=== PATIENT | female | born 1955 | race Caucasian/White ===

== ENCOUNTER → 2022-02-25 10:24 | Outpatient (RCR) | payer MEDICARE, BC, SELFPAY | LOC: PHYS 10:24 | PROVIDERS: Family Provider Pediatrics; PCP Pediatrics; Referring Provider Pediatrics; Visit Provider Pediatrics ==

== ENCOUNTER → 2022-02-25 11:28 | Outpatient (CLI) | payer MEDICARE, BC, SELFPAY | PROVIDERS: Family Provider Pediatrics; PCP Pediatrics; Referring Provider Pediatrics; Visit Provider Pediatrics ==

== ENCOUNTER → 2022-02-25 11:42 | Outpatient (CLI) | payer MEDICARE, BC, SELFPAY | PROVIDERS: Family Provider Pediatrics; PCP Pediatrics; Referring Provider Pediatrics; Visit Provider Pediatrics ==

== ENCOUNTER → 2022-07-14 09:34 | Outpatient (CLI) | payer MEDICARE, BC, SELFPAY ==
[2022-07-14 11:13] LABS: Alanine Aminotransferase 28 IU/L (<35); Albumin Globulin Ratio 1.3 (1.0-2.8); Alkaline Phosphatase 51 U/L (38-126); Aspartate Aminotransferase 35 IU/L (14-36); BUN Creatinine Ratio 22.2 (6-22); Bilirubin Total 0.6 mg/dL (0.2-1.3); Blood Urea Nitrogen 12 mg/dL (7-17); Calcium 8.8 mg/dL (8.4-10.2); Carbon Dioxide 27 mmol/L (22-32); Chloride 108 mmol/L (98-107); Estimated Glomerular Filt Rate > 60 mL/min (>60); Globulin 3.2 g/dL (1.7-4.1); Glucose 95 mg/dL (80-110); HEMOLYSIS < 15 (0-50); Potassium 4.2 mmol/L (3.4-5.1); Sodium 140 mmol/L (137-145); Total Protein 7.2 g/dL (6.3-8.2)
[2022-07-14 11:26] LABS: Free T3, Triiodothyronine Free 3.13 pg/mL (2.77-5.27); Free T4, Direct Thyroxine 1.03 ng/dL (0.78-2.19)
[2022-07-14 11:39] LABS: Thyroid Stimulating Hormone 3.86 uIU/mL (0.47-4.68)
[2022-07-15 07:37] LABS: Fecal Immunochemical Test Negative (Negative)
[2022-07-16 08:22] LABS: Parathyroid Hormone Int 78 pg/mL (15-65)
== END ==
PROVIDERS: Family Provider Pediatrics; PCP Family Medicine; Referring Provider Family Medicine; Visit Provider Family Medicine
DX: Z12.11 Encounter for screening for malignant neoplasm of colon (principal); Z12.31 Encounter for screening mammogram for malignant neoplasm of breast; E03.9 Hypothyroidism, unspecified; E04.1 Nontoxic single thyroid nodule
CPT/HCPCS: 36415; 80053; 82274; 83970; 84439; 84443; 84481

== ENCOUNTER → 2022-08-13 08:14 | Outpatient (CLI) | payer MEDICARE, BC, SELFPAY ==
--- NOTE | 2022-08-13 | PATH_ITS ---
Note [facility] Accession Number: [id number] TESTS RESULT FLAG UNITS REF RANGE LAB Clinician Provided Cytology Information No. of containers..01 Other (Miscellaneous) No. of containers..08 Previously Prepared Cytology Slide Source: LEFT INFERIOR THYROID NODULE DIAGNOSIS: LEFT INFERIOR THYROID NODULE INCONCLUSIVE. BETHESDA CATEGORY III. ATYPIA OF UNDETERMINED SIGNIFICANCE. MOLECULAR STUDIES PENDING; RESULTS WILL BE REPORTED SEPARATELY. Pathologist ICD10: R89.6 Signed out by: Shelia Xiao MD, Pathologist NPI- [id number] Performed by: Kanchan Freeman, Senior Materials Planner ([facility]) Gross description: 30 CC, RED, CLOUDY RECEIVED IN CYTOLYT WHITE CAP CONTAINER RECEIVED 9 ALCOHOL FIXED SLIDES IN 3 GREEN CAP COFFINS RECEIVED 9 FIXED SLIDES IN 3 SLIDE HOLDERS RECIEVED 1 RNA VIAL /RZA 08/14/[address] [place] [address] FLAG LEGEND: L-Low Normal,H-High Normal,LL-Alert Low,HH-Alert High <-Panic Low,>-Panic High,A-Abnormal,AA-Critical Abnormal Performed at: 01 =Z [facility] [address], [place] [address] Brendon Shelby MD, Performed at: 01 [facility] [address], [place], [place] [id number] MD Brendon Shelby MD Phone: [phone]
--- NOTE | 2022-08-13 08:15 | DI.US.S_ITS ---
PROCEDURE: US FINE NEEDLE ASPIRATION INDICATIONS: LEFT INFERIOR THYROID NODULE TECHNIQUE: The indications, alternatives, benefits, risks, and complications of the procedure were explained to the patient. Written informed consent was obtained and placed in the chart. The area of interest was examined sonographically and a site was chosen for ultrasound guided percutaneous sampling. The skin was prepared and draped in the usual fashion, and anesthetized with 1% lidocaine infiltrated from the skin down to the lesion. Multiple passes were then performed, with contents emptied into an appropriate pathology specimen container. A bandage was applied to the area of access at completion of the study. COMPARISON: Ultrasound 10/01/2021. FINDINGS: Location(s) of lesion(s) sampled: Left inferior thyroid nodule [place]: 25 gauge hypodermic needles. Number of passes: 9 Medications: 1% lidocaine for local anaesthesia. Complications: None. IMPRESSION: Successful ultrasound-guided left thyroid nodule fine needle aspiration, with cytology results pending. Dictated by: Ross Teague M.D. on 08/13/2022 at 11:38 Approved by: Ross Teague M.D. on 08/13/2022 at 11:39
== END ==
PROVIDERS: Family Provider Pediatrics; PCP Family Medicine; Referring Provider Family Medicine; Visit Provider Family Medicine
DX: E04.1 Nontoxic single thyroid nodule (principal); E21.5 Disorder of parathyroid gland, unspecified; E03.9 Hypothyroidism, unspecified
CPT/HCPCS: 10005

== ENCOUNTER 2022-10-03 09:45 | Outpatient (RCR) | payer MEDICARE, BC, SELFPAY ==
--- NOTE | 2022-03-18 19:56 | PT.OIE ---
Current Diagnoses Hyperlipidemia, unspecified (03/18/22) Essential (primary) hypertension (03/18/22) Muscle weakness (generalized) (03/18/22) Other specified disorders of muscle (03/18/22) Unsteadiness on feet (03/18/22) Other abnormalities of gait and mobility (03/18/22) Past Medical History (Last Updated 01/13/22 @ 09:33 by Jose Mcginnis MD) Cerebrovascular accident (CVA) with right hemiparesis HTN (hypertension) Increased serum lipids Muscle hypertonicity Visit Care Team Role Provider Type Jose Mcginnis MD Attending Provider Physician Family Provider Primary Care Provider Referring Provider Specialty: Internal Medicine Pediatrics Address: [address] [place] [address], [id number] Phone: Fax: Email: [email or web address] Physical Therapy Initial Evaluation PT-OP-A Visit Information Start: 03/18/22 12:11 Freq: Status: Active Protocol: Document 03/18/22 13:51 LRN (Rec: 03/18/22 14:42 LRN [id number]) Out-Patient Physical Therapy Visit Information Visit Information Visit Type Initial Evaluation Visit Note 07/10 Visit Start Time 13:51 Visit Stop Time 14:40 Total Visit Minutes 49 Visit Number 1 Evaluation Information Evaluation Date 03/18/22 Precautions Precautions Osteoporosis, history of falls , HBP controlled by meds. PT-OP-B Current Condition Start: 03/18/22 12:11 Freq: Status: Active Protocol: Document 03/18/22 13:51 LRN (Rec: 03/18/22 14:42 LRN [id number]) Current Condition History of Current Condition Onset Date A few weeks ago referred for stroke rehab at pt request. L CVA 07/22/18 Current Complaints Hasn't had therapy in a yr. 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 States since stroke she has had therapy for a few months each year. Referred by Dr Jose Mcginnis at [facility], who will no longer be following her because he was a fill in physician. Has follow up visit with a physician in June 2022, who will be her primary care physician. Pt reports her walking is still unsteady and her R hand is useless. Pt will be receiving PT & OT. States hamstrings are begining to improve, feeling in her feet is improving, and the inner R ankle ms are getting stronger, so she is not rolling her R ankle any more. Pt complains she doesn't have big toes to help her balance because they curl in. If she steps on something unevenly then it causes her to loose her balance. When walking she looks down at the ground, and if she hears someone behind her, it causes her to tense up and decreases her balance ability because it is very distracting to her. Her balance when statioinary is good, but dynamically is not good. Prior Treatments and Tests See development section below. Developmental History Developmental History She continues to make progress and feels therapy seems to help. Marina in 07/22/2018 in [place]. Was in intensive care a few days, hospital a week and rehab inpt for 1 month. Home health the following month and outpatient OT/PT from September-Feb 2019. Started therapy again 06/2019 to 10/2019. Fall 08/03/19 with concusion. In 2020 had outpt PT 07/12 to 11/09. Treatment Goals Patient/Caregiver Goals Pt goals: Able to walk up/down hill. Currently she needs to hand onto someone if she is on a incline. Wants to walk on [place] without help. Wants to walk on different surfaces safely (grass, soft sand or gravel, cobblestones). Improve gait stability and speed. Able to step over 4 doorframe or other objects. Prior Functional Status Baseline Function- ADL's Independent Baseline Function- Mobility Independent Baseline Function- Work/School Homemaker. Current Functional Impairments (Reported) Functional Limitations- ADL's Past 2 months walks 1.25 miles 6 days/week. Other exercise is housework. Before walking on trails was doing modified yoga and Pilates exercise daily. Functional Limitations- Mobility/Gait Ambs with SPC, 1.25 miles with cane with spouse assist with inclines and declines. Personal Factors Other Personal Factors That May Effect Pt lives with spouse and son Therapy/Recovery who is a high functioning adult with autism, osteoporosis, intracranial meningioma. PT-OP-C Subjective Start: 03/18/22 12:11 Freq: Status: Active Protocol: Document 03/18/22 13:51 LRN (Rec: 03/18/22 14:42 LRN [id number]) Patient Questionnaires ABC- Activity Specific Balance Confidence Scale ABC Score Uncompleted, pt to bring in next visit. PT-OP-E Functional Tests Start: 03/18/22 12:11 Freq: Status: Active Protocol: Document 03/18/22 13:51 LRN (Rec: 03/18/22 14:42 LRN [id number]) Functional Tests Five Times Sit to Stand Test Score 19 secs Comments Without use of hands Timed Up and Go (TUG) Score 27 TUG Impairment Rating 100% Impaired (Score 20) PT-OP-G Mobility & Gait Start: 03/18/22 12:11 Freq: Status: Active Protocol: Document 03/18/22 13:51 LRN (Rec: 03/18/22 14:42 LRN [id number]) OP Mobility Evaluation Transfers Sit to Stand Stand to sit sometime uncontrolled. Stands greater on LLE. OP Gait Assessment Gait Gait Assistance Required: Standby Assistance Able to Maintain Weight Bearing Status Yes During Gait Assistive Devices Assistive Device Gait Belt,Straight Cane Orthotic/Prosthetic Devices or Brace: No Gait Deviations General Gait Pattern Decreased Stride Length,Flexed Trunk,Lateral Trunk Lean,Wide Based Gait Factors Limiting Gait Function Factors Limiting Gait Function Abnormal Tonal Influences, Decreased Strength,Limited Range of Motion,Poor Balance Comments Gait Comments Circumducts R LE, R drop foot, holds trunk in R rot, R arm held in flexion contracture. PT-OP-H Neuro Start: 03/18/22 12:11 Freq: Status: Active Protocol: Document 03/18/22 13:51 LRN (Rec: 03/18/22 14:42 LRN [id number]) Sensation Evaluation Gross Sensation Gross Sensation WNL PT-OP-J Posture/Palpation/Skin Start: 03/18/22 12:11 Freq: Status: Active Protocol: Document 03/18/22 13:51 LRN (Rec: 03/18/22 14:42 LRN [id number]) Posture Evaluation Position Standing Head/C-Spine Posture Forward Head T-Spine Posture Rotation Right Shoulder Posture (L) Elevated Knee Posture (R) Genu Recurvatum Comments Posture Comments R handed. PT-OP-M Strength Start: 03/18/22 12:11 Freq: Status: Active Protocol: Document 03/18/22 13:51 LRN (Rec: 03/18/22 14:42 LRN [id number]) Knee Strength Knee Manual Muscle Testing Right Flexion (S2) 2 Poor Extension (L3) 4 Good Left Comments Generally 5/5 Ankle/Foot Strength Ankle and Foot Manual Muscle Testing Right Dorsiflexion (L4) 0 Zero Comments Generally 1/5 except as indicated above. Left Comments Generally 5/5 PT-OP-Q Treatments Start: 03/18/22 12:11 Freq: Status: Active Protocol: Document 03/18/22 13:51 LRN (Rec: 03/18/22 14:42 LRN [id number]) Self-Care/Home Management Treatment Education Other Education Discussed results of evaluation, goals, and plan of care (POC). Pt agreeable to goals and POC. PT-OP-T Assessment and Plan Start: 03/18/22 12:11 Freq: Status: Active Protocol: Document 03/18/22 13:51 LRN (Rec: 03/18/22 14:42 LRN [id number]) Physical Therapy Assessment Rehab Potential Rehabilitation Potential Good Evaluation Complexity Number of Personal Factors/Comorbidities 3 or More Number of Body Systems Impaired 4 or More Clinical Presentation at Evaluation Evolving Impairments Impairments Activity Tolerance,Balance, Gait,Posture,ROM,Sensation, Strength,Tone,Transfers Goals Four Impairment Decreased standing dynamic balance. Impairment Pt requires railing UE support to step over objects. Short Term Goal (STG) Pt will be able to walk on different surfaces safely ( grass, soft sand or gravel to mimic cobblestones) with CGA> SBA. STG Duration 04/29/22 Longterm Goal (LTG) Pt will be able to step over 4 doorframe or other objects with use of SPC. LTG Duration 06/10/22 Three Impairment Decreased ability to walk up/ down inclines Impairment Requires arm hold assist when walking on an incline for safety. Short Term Goal (STG) Able to walk up/down a hill with CGA>SBA for safety. STG Duration 04/29/22 Rodeo Performer Goal (LTG) Pt will be able to walk on [place] with SBA and an adaptive device for the RLE ( AFO) as needed. LTG Duration 06/10/22 Two Impairment Decreased R LE strength Impairment Hyperextension of R knee with gait. R knee strength: Flex is 2/5, Ext is 4/5 and lacking ECC control with end-range extension. R ankle strength: Generally 1 /5 except ankle DF is 0/5. Short Term Goal (STG) Improve R knee and ankle strength 1/2 grade STG Duration 04/29/22 Rodeo Performer Goal (LTG) Pt will demonstrate improved stability with gait with ability to limit R knee hyperextension during gait. LTG Duration 06/10/22 One Impairment Lacks appropriate self care HEP. Short Term Goal (STG) Pt will be independent and consistent with a self care HEP. STG Duration 04/29/22 Longterm Goal (LTG) Improve gait speed. LTG Duration 06/10/22 Assessment Summary Assessment Pt is a 66 y.o. female who presents s/p L CVA 06/2018 with residual R hemiparesis with return of some function in the R LE. R UE is held in flexion contracture against her body. The pt ambulates into therapy with a SPC and requests CGA with walking for safety. Pt is alert and oriented to person, place and time. She has good recall of her past medical history. The pt demonstrates poor R knee control with hyperextension of the knee during gait. She demonstrates decreased core/ pelvic control with trunk R rot during gait and excessive trunk SB lean and Forward lean with gait. She demonstrates and obvious dropped R foot and shows very little strength in the ankle as well as extensor tone of the R ankle/ foot. The pt will benefit from skilled physical therapy to work towards achieving the above stated goals. Physical Therapy Plan Frequency and Duration Frequency of Treatment 2x/Week Duration of treatment (weeks) 12 Plan of Care Start Date 03/18/22 Plan of Care End Date 06/10/22 Therapeutic Interventions Therapeutic Interventions Aquatic Therapy,Balance Training,Gait Training,Home Exercise Program,Manual Therapy,Neuromuscular Re- education,Patient/Caregiver Education,Self-Care/Home Management,Taping,Therapeutic Activities,Therapeutic Exercises Modalities Cold Pack/Ice Massage,Hot Packs Next Visit Focus/Plan Next Note Type Treatment Note Next Visit Plan Assess gait speed, and Balance per RUTHERFORD. Start R knee/ankle , core & pelvic strengthening and ankle ROM ex's, gait training for control of R knee to prevent hyperextension and discuss use of AFO. Balance training for weight shifting and ambulation on incline/ decline and uneven surfaces. Recommend referral for R AFO or LE walking device if pt agreeable.
--- NOTE | 2022-03-21 17:06 | PT.OTN ---
Current Diagnoses Hyperlipidemia, unspecified (03/21/22) Essential (primary) hypertension (03/21/22) Muscle weakness (generalized) (03/21/22) Other specified disorders of muscle (03/21/22) Unsteadiness on feet (03/21/22) Other abnormalities of gait and mobility (03/21/22) Physical Therapy Treatment Note PT-OP-A Visit Information Start: 03/18/22 12:11 Freq: Status: Active Protocol: Document 03/21/22 13:02 LRN (Rec: 03/21/22 13:48 LRN [id number]) Out-Patient Physical Therapy Visit Information Visit Information Visit Type Treatment Note Visit Note 08/10 Visit Start Time 13:02 Visit Stop Time 13:44 Total Visit Minutes 42 Visit Number 2 Evaluation Information Evaluation Date 03/18/22 Precautions Precautions Osteoporosis, history of falls , HBP controlled by meds. PT-OP-B Current Condition Start: 03/18/22 12:11 Freq: Status: Active Protocol: Document 03/18/22 13:51 LRN (Rec: 03/18/22 14:42 LRN [id number]) Current Condition History of Current Condition Onset Date A few weeks ago referred for stroke rehab at pt request. L CVA 07/22/18 Current Complaints Hasn't had therapy in a yr. 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 States since stroke she has had therapy for a few months each year. Referred by Dr Jose Mcginnis at [facility], who will no longer be following her because he was a fill in physician. Has follow up visit with a physician in June 2022, who will be her primary care physician. Pt reports her walking is still unsteady and her R hand is useless. Pt will be receiving PT & OT. States hamstrings are begining to improve, feeling in her feet is improving, and the inner R ankle ms are getting stronger, so she is not rolling her R ankle any more. Pt complains she doesn't have big toes to help her balance because they curl in. If she steps on something unevenly then it causes her to loose her balance. When walking she looks down at the ground, and if she hears someone behind her, it causes her to tense up and decreases her balance ability because it is very distracting to her. Her balance when statioinary is good, but dynamically is not good. Prior Treatments and Tests See development section below. Developmental History Developmental History She continues to make progress and feels therapy seems to help. Stoke in 07/22/2018 in [place]. Was in intensive care a few days, hospital a week and rehab inpt for 1 month. Home health the following month and outpatient OT/PT from September-Feb 2019. Started therapy again 06/2019 to 10/2019. Fall 08/03/19 with concusion. In 2020 had outpt PT 07/12 to 11/09. Treatment Goals Patient/Caregiver Goals Pt goals: Able to walk up/down hill. Currently she needs to hand onto someone if she is on a incline. Wants to walk on [place] without help. Wants to walk on different surfaces safely (grass, soft sand or gravel, cobblestones). Improve gait stability and speed. Able to step over 4 doorframe or other objects. Prior Functional Status Baseline Function- ADL's Independent Baseline Function- Mobility Independent Baseline Function- Work/School Homemaker. Current Functional Impairments (Reported) Functional Limitations- ADL's Past 2 months walks 1.25 miles 6 days/week. Other exercise is housework. Before walking on trails was doing modified yoga and Pilates exercise daily. Functional Limitations- Mobility/Gait Ambs with SPC, 1.25 miles with cane with spouse assist with inclines and declines. Personal Factors Other Personal Factors That May Effect Pt lives with spouse and son Therapy/Recovery who is a high functioning adult with autism, osteoporosis, intracranial meningioma. PT-OP-C Subjective Start: 03/18/22 12:11 Freq: Status: Active Protocol: Document 03/21/22 13:02 LRN (Rec: 03/21/22 13:48 LRN [id number]) OP-PT Subjective Patient Comments Patient Comments States she is good at standing . PT-OP-E Functional Tests Start: 03/18/22 12:11 Freq: Status: Active Protocol: Document 03/18/22 13:51 LRN (Rec: 03/18/22 14:42 LRN [id number]) Functional Tests Five Times Sit to Stand Test Score 19 secs Comments Without use of hands Timed Up and Go (TUG) Score 27 TUG Impairment Rating 100% Impaired (Score 20) PT-OP-G Mobility & Gait Start: 03/18/22 12:11 Freq: Status: Active Protocol: Document 03/18/22 13:51 LRN (Rec: 03/18/22 14:42 LRN [id number]) OP Mobility Evaluation Transfers Sit to Stand Stand to sit sometime uncontrolled. Stands greater on LLE. OP Gait Assessment Gait Gait Assistance Required: Standby Assistance Able to Maintain Weight Bearing Status Yes During Gait Assistive Devices Assistive Device Gait Belt,Straight Cane Orthotic/Prosthetic Devices or Brace: No Gait Deviations General Gait Pattern Decreased Stride Length,Flexed Trunk,Lateral Trunk Lean,Wide Based Gait Factors Limiting Gait Function Factors Limiting Gait Function Abnormal Tonal Influences, Decreased Strength,Limited Range of Motion,Poor Balance Comments Gait Comments Circumducts R LE, R drop foot, holds trunk in R rot, R arm held in flexion contracture. PT-OP-H Neuro Start: 03/18/22 12:11 Freq: Status: Active Protocol: Document 03/18/22 13:51 LRN (Rec: 03/18/22 14:42 LRN [id number]) Sensation Evaluation Gross Sensation Gross Sensation WNL PT-OP-J Posture/Palpation/Skin Start: 03/18/22 12:11 Freq: Status: Active Protocol: Document 03/18/22 13:51 LRN (Rec: 03/18/22 14:42 LRN [id number]) Posture Evaluation Position Standing Head/C-Spine Posture Forward Head T-Spine Posture Rotation Right Shoulder Posture (L) Elevated Knee Posture (R) Genu Recurvatum Comments Posture Comments R handed. PT-OP-M Strength Start: 03/18/22 12:11 Freq: Status: Active Protocol: Document 03/18/22 13:51 LRN (Rec: 03/18/22 14:42 LRN [id number]) Knee Strength Knee Manual Muscle Testing Right Flexion (S2) 2 Poor Extension (L3) 4 Good Left Comments Generally 5/5 Ankle/Foot Strength Ankle and Foot Manual Muscle Testing Right Dorsiflexion (L4) 0 Zero Comments Generally 1/5 except as indicated above. Left Comments Generally 5/5 PT-OP-Q Treatments Start: 03/18/22 12:11 Freq: Status: Active Protocol: Document 03/21/22 13:02 LRN (Rec: 03/21/22 13:48 LRN [id number]) Gym Equipment Shuttle Recovery Unilateral Squats Details R leg Squat Resistance 25# Shuttle Recovery Platform Stable Reps/Time 10x 2 Bilateral Squats Details Elian Squat Resistance 25# Shuttle Recovery Platform Stable Reps/Time 30x slow with bolster to limit R knee ext. Therapeutic Exercises Sitting Exercises Sit<>Stand Sitting Exercise Name Sit<>Stand Reps/Minutes 10x with rests inbetween Gait Training Gait Activity R Knee control Description R knee control from heel strike to toe off Device Used SPC on L side Surface Level Distance/Duration 15' Treatment Focus R knee control to prevent hyperextension Comments verbal and physical cuing Neuro Re-Education Treatment Balance Activities Tandem Stance Details Tandem Stance SLS Details SLS Alternate foot on step Details Alternate foot up on step Turning 360 deg's Details Turning 360 deg's Standing Reach Details Standing Reach Standing Picking up object Details Standing Picking up object Standing Looking behind Details Standing Looking behind Standing feet together Details Standing feet together, L hand over chest Transferring Details Chair<> Plinth Reps/Duration x 4 Comments Pt able to perform safely. Standing unsupported Details Standing unsupported EO & EC Reps/Duration 1' EO, 2' EO, 10 EC Comments Extra time for postioning into stance of safety. PT-OP-T Assessment and Plan Start: 03/18/22 12:11 Freq: Status: Active Protocol: Document 03/21/22 13:02 LRN (Rec: 03/21/22 13:48 [facility] [id number]) Physical Therapy Assessment Goals Four Impairment Decreased standing dynamic balance. Impairment Pt requires railing UE support to step over objects. 03/21/22: RUTHERFORD Balance Score is 42 (>35 is safe amb w/ assistive device, >45 is safe w/o assist device) Short Term Goal (STG) Pt will be able to walk on different surfaces safely ( grass, soft sand or gravel to mimic cobblestones) with CGA> SBA. STG Duration 04/29/22 Ophthalmic Tech Goal (LTG) Pt will be able to step over 4 doorframe or other objects with use of SPC. LTG Duration 06/10/22 Three Impairment Decreased ability to walk up/ down inclines Impairment Requires arm hold assist when walking on an incline for safety. Short Term Goal (STG) Able to walk up/down a hill with CGA>SBA for safety. STG Duration 04/29/22 Ophthalmic Tech Goal (LTG) Pt [facility] with [facility] and an adaptive device for the RLE ( AFO) as needed. LTG Duration 06/10/22 Two Impairment Decreased R LE strength Impairment Hyperextension of R knee with gait. R knee strength: Flex is 2/5, Ext is 4/5 and lacking ECC control with end-range extension. R ankle strength: Generally 1 /5 except ankle DF is 0/5. Short Term Goal (STG) Improve R knee and ankle strength 1/2 grade STG Duration 04/29/22 Care Home Goal (LTG) Pt will demonstrate improved stability with gait with ability to limit R knee hyperextension during gait. LTG Duration 06/10/22 One Impairment Lacks appropriate self care HEP. Short Term Goal (STG) Pt will be independent and consistent with a self care HEP. STG Duration 04/29/22 Ophthalmic Tech Goal (LTG) Improve gait speed. LTG Duration 06/10/22 Assessment Summary Assessment s/p L CVA 06/2018 with residual R hemiparesis. RUTHERFORD score is 42 indicating safe for amb with asistive device. Pt is fairly steady in standing. Gait is unsteady due to wide circumduction of RLE with swing through in order to clear the ground. ABC score is 64.37. Physical Therapy Plan Frequency and Duration Frequency of Treatment 2x/Week Duration of treatment (weeks) 12 Plan of Care Start Date 03/18/22 Plan of Care End Date 06/10/22 Next Visit Focus/Plan Next Note Type Treatment Note Next Visit Plan Assess gait speed. Discuss use of AFO. Start R knee/ankle, core & pelvic strengthening and ankle ROM ex's, Balance training for weight shifting and ambulation on incline/decline and uneven surfaces. Recommend referral for R AFO or LE walking device if pt agreeable.
--- NOTE | 2022-03-21 17:12 | PT.OTN ---
Current Diagnoses Hyperlipidemia, unspecified (03/21/22) Essential (primary) hypertension (03/21/22) Muscle weakness (generalized) (03/21/22) Other specified disorders of muscle (03/21/22) Unsteadiness on feet (03/21/22) Other abnormalities of gait and mobility (03/21/22) Physical Therapy Treatment Note PT-OP-A Visit Information Start: 03/18/22 12:11 Freq: Status: Active Protocol: Document 03/21/22 13:02 LRN (Rec: 03/21/22 13:48 LRN [id number]) Out-Patient Physical Therapy Visit Information Visit Information Visit Type Treatment Note Visit Note 08/10 Visit Start Time 13:02 Visit Stop Time 13:44 Total Visit Minutes 42 Visit Number 2 Evaluation Information Evaluation Date 03/18/22 Precautions Precautions Osteoporosis, history of falls , HBP controlled by meds. PT-OP-B Current Condition Start: 03/18/22 12:11 Freq: Status: Active Protocol: Document 03/18/22 13:51 LRN (Rec: 03/18/22 14:42 LRN [id number]) Current Condition History of Current Condition Onset Date A few weeks ago referred for stroke rehab at pt request. L CVA 07/22/18 Current Complaints Hasn't had therapy in a yr. 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 States since stroke she has had therapy for a few months each year. Referred by Dr Jose Mcginnis at [facility], who will no longer be following her because he was a fill in physician. Has follow up visit with a physician in June 2022, who will be her primary care physician. Pt reports her walking is still unsteady and her R hand is useless. Pt will be receiving PT & OT. States hamstrings are begining to improve, feeling in her feet is improving, and the inner R ankle ms are getting stronger, so she is not rolling her R ankle any more. Pt complains she doesn't have big toes to help her balance because they curl in. If she steps on something unevenly then it causes her to loose her balance. When walking she looks down at the ground, and if she hears someone behind her, it causes her to tense up and decreases her balance ability because it is very distracting to her. Her balance when statioinary is good, but dynamically is not good. Prior Treatments and Tests See development section below. Developmental History Developmental History She continues to make progress and feels therapy seems to help. Stoke in 07/22/2018 in [place]. Was in intensive care a few days, hospital a week and rehab inpt for 1 month. Home health the following month and outpatient OT/PT from September-Feb 2019. Started therapy again 06/2019 to 10/2019. Fall 08/03/19 with concusion. In 2020 had outpt PT 07/12 to 11/09. Treatment Goals Patient/Caregiver Goals Pt goals: Able to walk up/down hill. Currently she needs to hand onto someone if she is on a incline. Wants to walk on [place] without help. Wants to walk on different surfaces safely (grass, soft sand or gravel, cobblestones). Improve gait stability and speed. Able to step over 4 doorframe or other objects. Prior Functional Status Baseline Function- ADL's Independent Baseline Function- Mobility Independent Baseline Function- Work/School Homemaker. Current Functional Impairments (Reported) Functional Limitations- ADL's Past 2 months walks 1.25 miles 6 days/week. Other exercise is housework. Before walking on trails was doing modified yoga and Pilates exercise daily. Functional Limitations- Mobility/Gait Ambs with SPC, 1.25 miles with cane with spouse assist with inclines and declines. Personal Factors Other Personal Factors That May Effect Pt lives with spouse and son Therapy/Recovery who is a high functioning adult with autism, osteoporosis, intracranial meningioma. PT-OP-C Subjective Start: 03/18/22 12:11 Freq: Status: Active Protocol: Document 03/21/22 13:02 LRN (Rec: 03/21/22 13:48 LRN [id number]) OP-PT Subjective Patient Comments Patient Comments States she is good at standing . Patient Questionnaires ABC- Activity Specific Balance Confidence Scale ABC Score 64.37 ABC Functional Impairment 20 to <40% Impaired (Score 61- 80) PT-OP-D Balance Start: 03/18/22 12:11 Freq: Status: Active Protocol: Document 03/21/22 13:02 LRN (Rec: 03/21/22 17:11 LRN [id number]) Rutherford Balance Assessment Evaluation Sitting to Standing Ability Independent w/out Hands Unsupported Stance Safely- 2 minutes Sitting Unsupported, Feet on Floor Safely- 2 minutes Standing to Sitting Ability Safely, Minimal Hand Use Transfer Ability Safely, Minimal Hand Use Unsupported Stance- Eyes Closed Safely, 10 seconds Unsupported Stance- Eyes Open Independent, 1 minute Reaching Forward Standing Safely, 5 inches Pick- Up Object From Floor Independent/Safe Look Behind Shoulder - Standing Shifts Weight Well Turning 360 Degrees Turns slowly, but safely Unsupported Stance, Alternating Feet on (I)- 8 Steps in > 20 secs Stair Unsupported Tandem Stance Balance Lost- Step/Stand Unilateral Leg Stance Unable,assist to not fall Total Score Rutherford Total Score (out of 56 points) 44 Rutherford Impairment Rating 20 to 39% Impaired (Score 34- 44) PT-OP-E Functional Tests Start: 03/18/22 12:11 Freq: Status: Active Protocol: Document 03/18/22 13:51 LRN (Rec: 03/18/22 14:42 LR [id number]) Functional Tests Five Times Sit to Stand Test Score 19 secs Comments Without use of hands Timed Up and Go (TUG) Score 27 TUG Impairment Rating 100% Impaired (Score 20) PT-OP-G Mobility & Gait Start: 03/18/22 12:11 Freq: Status: Active Protocol: Document 03/18/22 13:51 LRN (Rec: 03/18/22 14:42 LRN [id number]) OP Mobility Evaluation Transfers Sit to Stand Stand to sit sometime uncontrolled. Stands greater on LLE. OP Gait Assessment Gait Gait Assistance Required: Standby Assistance Able to Maintain Weight Bearing Status Yes During Gait Assistive Devices Assistive Device Gait Belt,Straight Cane Orthotic/Prosthetic Devices or Brace: No Gait Deviations General Gait Pattern Decreased Stride Length,Flexed Trunk,Lateral Trunk Lean,Wide Based Gait Factors Limiting Gait Function Factors Limiting Gait Function Abnormal Tonal Influences, Decreased Strength,Limited Range of Motion,Poor Balance Comments Gait Comments Circumducts R LE, R drop foot, holds trunk in R rot, R arm held in flexion contracture. PT-OP-H Neuro Start: 03/18/22 12:11 Freq: Status: Active Protocol: Document 03/18/22 13:51 LRN (Rec: 03/18/22 14:42 LRN [id number]) Sensation Evaluation Gross Sensation Gross Sensation WNL PT-OP-J Posture/Palpation/Skin Start: 03/18/22 12:11 Freq: Status: Active Protocol: Document 03/18/22 13:51 LRN (Rec: 03/18/22 14:42 LRN [id number]) Posture Evaluation Position Standing Head/C-Spine Posture Forward Head T-Spine Posture Rotation Right Shoulder Posture (L) Elevated Knee Posture (R) Genu Recurvatum Comments Posture Comments R handed. PT-OP-M Strength Start: 03/18/22 12:11 Freq: Status: Active Protocol: Document 03/18/22 13:51 LRN (Rec: 03/18/22 14:42 LRN [id number]) Knee Strength Knee Manual Muscle Testing Right Flexion (S2) 2 Poor Extension (L3) 4 Good Left Comments Generally 5/5 Ankle/Foot Strength Ankle and Foot Manual Muscle Testing Right Dorsiflexion (L4) 0 Zero Comments Generally 1/5 except as indicated above. Left Comments Generally 5/5 PT-OP-Q Treatments Start: 03/18/22 12:11 Freq: Status: Active Protocol: Document 03/21/22 13:02 LRN (Rec: 03/21/22 13:48 LR [id number]) Gym Equipment Shuttle Recovery Unilateral Squats Details R leg Squat Resistance 25# Shuttle Recovery Platform Stable Reps/Time 10x 2 Bilateral Squats Details Elian Squat Resistance 25# Shuttle Recovery Platform Stable Reps/Time 30x slow with bolster to limit R knee ext. Therapeutic Exercises Sitting Exercises Sit<>Stand Sitting Exercise Name Sit<>Stand Reps/Minutes 10x with rests inbetween Gait Training Gait Activity R Knee control Description R knee control from heel strike to toe off Device Used SPC on L side Surface Level Distance/Duration 15' Treatment Focus R knee control to prevent hyperextension Comments verbal and physical cuing Neuro Re-Education Treatment Balance Activities Tandem Stance Details Tandem Stance SLS Details SLS Alternate foot on step Details Alternate foot up on step Turning 360 deg's Details Turning 360 deg's Standing Reach Details Standing Reach Standing Picking up object Details Standing Picking up object Standing Looking behind Details Standing Looking behind Standing feet together Details Standing feet together, L hand over chest Transferring Details Chair<> Plinth Reps/Duration x 4 Comments Pt able to perform safely. Standing unsupported Details Standing unsupported EO & EC Reps/Duration 1' EO, 2' EO, 10 EC Comments Extra time for postioning into stance of safety. PT-OP-T Assessment and Plan Start: 03/18/22 12:11 Freq: Status: Active Protocol: Document 03/21/22 13:02 LRN (Rec: 03/21/22 13:48 LRN [id number]) Physical Therapy Assessment Goals Four Impairment Decreased standing dynamic balance. Impairment Pt requires railing UE support to step over objects. 03/21/22: RUTHERFORD Balance Score is 44 (>35 is safe amb w/ assistive device, >45 is safe w/o assist device) Short Term Goal (STG) Pt will be able to walk on different surfaces safely ( grass, soft sand or gravel to mimic cobblestones) with CGA> SBA. STG Duration 04/29/22 Employment Case Manager Goal (LTG) Pt will be able to step over 4 doorframe or other objects with use of SPC. LTG Duration 06/10/22 Three Impairment Decreased ability to walk up/ down inclines Impairment Requires arm hold assist when walking on an incline for safety. Short Term Goal (STG) Able to walk up/down a hill with CGA>SBA for safety. STG Duration 04/29/22 Employment Case Manager Goal (LTG) Pt will be able to walk on [place] with SBA and an adaptive device for the RLE ( AFO) as needed. LTG Duration 06/10/22 Two Impairment Decreased R LE strength Impairment Hyperextension of R knee with gait. R knee strength: Flex is 2/5, Ext is 4/5 and lacking ECC control with end-range extension. R ankle strength: Generally 1 /5 except ankle DF is 0/5. Short Term Goal (STG) Improve R knee and ankle strength 1/2 grade STG Duration 04/29/22 Prison Goal (LTG) Pt will demonstrate improved stability with gait with ability to limit R knee hyperextension during gait. LTG Duration 06/10/22 One Impairment Lacks appropriate self care HEP. Short Term Goal (STG) Pt will be independent and consistent with a self care HEP. STG Duration 04/29/22 Prison Goal (LTG) Improve gait speed. LTG Duration 06/10/22 Assessment Summary Assessment s/p L CVA 06/2018 with residual R hemiparesis. RUTHERFORD score is 44 indicating safe for amb with asistive device. Pt is fairly steady in standing. Gait is unsteady due to wide circumduction of RLE with swing through in order to clear the ground. ABC score is 64.37. Physical Therapy Plan Frequency and Duration Frequency of Treatment 2x/Week Duration of treatment (weeks) 12 Plan of Care Start Date 03/18/22 Plan of Care End Date 06/10/22 Next Visit Focus/Plan Next Note Type Treatment Note Next Visit Plan Assess gait speed. Discuss use of AFO. Start R knee/ankle, core & pelvic strengthening and ankle ROM ex's, Balance training for weight shifting and ambulation on incline/decline and uneven surfaces. Recommend referral for R AFO or LE walking device if pt agreeable.
--- NOTE | 2022-03-24 16:12 | PT.OTN ---
Current Diagnoses Hyperlipidemia, unspecified (03/24/22) Essential (primary) hypertension (03/24/22) Muscle weakness (generalized) (03/24/22) Other specified disorders of muscle (03/24/22) Unsteadiness on feet (03/24/22) Other abnormalities of gait and mobility (03/24/22) Physical Therapy Treatment Note PT-OP-A Visit Information Start: 03/18/22 12:11 Freq: Status: Active Protocol: Document 03/24/22 13:02 LRN (Rec: 03/24/22 13:50 LRN [id number]) Out-Patient Physical Therapy Visit Information Visit Information Visit Type Treatment Note Visit Start Time 13:02 Visit Stop Time 13:46 Total Visit Minutes 44 Visit Number 3 Evaluation Information Evaluation Date 03/18/22 Precautions Precautions Osteoporosis, history of falls , HBP controlled by meds. PT-OP-B Current Condition Start: 03/18/22 12:11 Freq: Status: Active Protocol: Document 03/18/22 13:51 LRN (Rec: 03/18/22 14:42 LRN [id number]) Current Condition History of Current Condition Onset Date A few weeks ago referred for stroke rehab at pt request. L CVA 07/22/18 Current Complaints Hasn't had therapy in a yr. 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 States since stroke she has had therapy for a few months each year. Referred by Dr Jose Mcginnis at [facility], who will no longer be following her because he was a fill in physician. Has follow up visit with a physician in June 2022, who will be her primary care physician. Pt reports her walking is still unsteady and her R hand is useless. Pt will be receiving PT & OT. States hamstrings are begining to improve, feeling in her feet is improving, and the inner R ankle ms are getting stronger, so she is not rolling her R ankle any more. Pt complains she doesn't have big toes to help her balance because they curl in. If she steps on something unevenly then it causes her to loose her balance. When walking she looks down at the ground, and if she hears someone behind her, it causes her to tense up and decreases her balance ability because it is very distracting to her. Her balance when statioinary is good, but dynamically is not good. Prior Treatments and Tests See development section below. Developmental History Developmental History She continues to make progress and feels therapy seems to help. Stoke in 07/22/2018 in [place]. Was in intensive care a few days, hospital a week and rehab in for 1 month. Home health the following month and outpatient OT/PT from September-Feb 2019. Started therapy again 06/2019 to 10/2019. Fall 08/03/19 with concusion. In 2020 had outpt PT 07/12 to 11/09. Treatment Goals Patient/Caregiver Goals Pt goals: Able to walk up/down hill. Currently she needs to hand onto someone if she is on a incline. Wants to walk on [place] without help. Wants to walk on different surfaces safely (grass, soft sand or gravel, cobblestones). Improve gait stability and speed. Able to step over 4 doorframe or other objects. Prior Functional Status Baseline Function- ADL's Independent Baseline Function- Mobility Independent Baseline Function- Work/School Homemaker. Current Functional Impairments (Reported) Functional Limitations- ADL's Past 2 months walks 1.25 miles 6 days/week. Other exercise is housework. Before walking on trails was doing modified yoga and Pilates exercise daily. Functional Limitations- Mobility/Gait Ambs with SPC, 1.25 miles with cane with spouse assist with inclines and declines. Personal Factors Other Personal Factors That May Effect Pt lives with spouse and son Therapy/Recovery who is a high functioning adult with autism, osteoporosis, intracranial meningioma. PT-OP-C Subjective Start: 03/18/22 12:11 Freq: Status: Active Protocol: Document 03/24/22 13:02 LRN (Rec: 03/24/22 13:50 LRN [id number]) OP-PT Subjective Patient Comments Patient Comments Did good on trail this morning , did a 45' mile and has walked 43'/mile. PT-OP-D Balance Start: 03/18/22 12:11 Freq: Status: Active Protocol: Document 03/21/22 13:02 LRN (Rec: 03/21/22 17:11 LRN [id number]) Rutherford Balance Assessment Evaluation Sitting to Standing Ability Independent w/out Hands Unsupported Stance Safely- 2 minutes Sitting Unsupported, Feet on Floor Safely- 2 minutes Standing to Sitting Ability Safely, Minimal Hand Use Transfer Ability Safely, Minimal Hand Use Unsupported Stance- Eyes Closed Safely, 10 seconds Unsupported Stance- Eyes Open Independent, 1 minute Reaching Forward Standing Safely, 5 inches Pick- Up Object From Floor Independent/Safe Look Behind Shoulder - Standing Shifts Weight Well Turning 360 Degrees Turns slowly, but safely Unsupported Stance, Alternating Feet on (I)- 8 Steps in > 20 secs Stair Unsupported Tandem Stance Balance Lost- Step/Stand Unilateral Leg Stance Unable,assist to not fall Total Score Rutherford Total Score (out of 56 points) 44 Rutherford Impairment Rating 20 to 39% Impaired (Score 34- 44) PT-OP-E Functional Tests Start: 03/18/22 12:11 Freq: Status: Active Protocol: Document 03/18/22 13:51 LRN (Rec: 03/18/22 14:42 LRN [id number]) Functional Tests Five Times Sit to Stand Test Score 19 secs Comments Without use of hands Timed Up and Go (TUG) Score 27 TUG Impairment Rating 100% Impaired (Score 20) PT-OP-G Mobility & Gait Start: 03/18/22 12:11 Freq: Status: Active Protocol: Document 03/18/22 13:51 LRN (Rec: 03/18/22 14:42 LRN [id number]) OP Mobility Evaluation Transfers Sit to Stand Stand to sit sometime uncontrolled. Stands greater on LLE. OP Gait Assessment Gait Gait Assistance Required: Standby Assistance Able to Maintain Weight Bearing Status Yes During Gait Assistive Devices Assistive Device Gait Belt,Straight Cane Orthotic/Prosthetic Devices or Brace: No Gait Deviations General Gait Pattern Decreased Stride Length,Flexed Trunk,Lateral Trunk Lean,Wide Based Gait Factors Limiting Gait Function Factors Limiting Gait Function Abnormal Tonal Influences, Decreased Strength,Limited Range of Motion,Poor Balance Comments Gait Comments Circumducts R LE, R drop foot, holds trunk in R rot, R arm held in flexion contracture. PT-OP-H Neuro Start: 03/18/22 12:11 Freq: Status: Active Protocol: Document 03/18/22 13:51 LRN (Rec: 03/18/22 14:42 LRN [id number]) Sensation Evaluation Gross Sensation Gross Sensation WNL PT-OP-J Posture/Palpation/Skin Start: 03/18/22 12:11 Freq: Status: Active Protocol: Document 03/18/22 13:51 LRN (Rec: 03/18/22 14:42 LRN [id number]) Posture Evaluation Position Standing Head/C-Spine Posture Forward Head T-Spine Posture Rotation Right Shoulder Posture (L) Elevated Knee Posture (R) Genu Recurvatum Comments Posture Comments R handed. PT-OP-M Strength Start: 03/18/22 12:11 Freq: Status: Active Protocol: Document 03/18/22 13:51 LRN (Rec: 03/18/22 14:42 LRN [id number]) Knee Strength Knee Manual Muscle Testing Right Flexion (S2) 2 Poor Extension (L3) 4 Good Left Comments Generally 5/5 Ankle/Foot Strength Ankle and Foot Manual Muscle Testing Right Dorsiflexion (L4) 0 Zero Comments Generally 1/5 except as indicated above. Left Comments Generally 5/5 PT-OP-Q Treatments Start: 03/18/22 12:11 Freq: Status: Active Protocol: Document 03/24/22 13:02 LRN (Rec: 03/24/22 13:50 LR [id number]) Gym Equipment Shuttle Recovery Unilateral Squats Details R leg Squat - bolster to limit R knee ext. Resistance 17# Shuttle Recovery Platform Stable Reps/Time 10' Bilateral Squats Details Elian Squat - Knees held together with Gr TB, hand towel roll btn knees Resistance 25# Shuttle Recovery Platform Stable Reps/Time 10' Therapeutic Exercises Sitting Exercises Pelvic Rot Sitting Exercise Name R Pelvic Rot anterior Reps/Minutes 2' Active asst'd R ankle EV Sitting Exercise Name Active asst'd R ankle EV Side right Reps/Minutes 5' Active assisted R ankle DF Sitting Exercise Name Active asst'd R ankle DF Side right Reps/Minutes 5' Gait Training Gait Activity R Knee control Description R knee control from heel strike to toe off Device Used SPC on L side Surface Level Distance/Duration 5' x 2, Gt speed taken Treatment Focus R knee control to prevent hyperextension Comments verbal and physical cuing to keep R knee from hyper extending. Gait 20'/ 15 secs = 1.33 ft/ sec. PT-OP-T Assessment and Plan Start: 03/18/22 12:11 Freq: Status: Active Protocol: Document 03/24/22 13:02 LRN (Rec: 03/24/22 13:50 LRN [id number]) Physical Therapy Assessment Goals Four Impairment Decreased standing dynamic balance. Impairment Pt requires railing UE support to step over objects. 03/21/22: RUTHERFORD Balance Score is 44 (>35 is safe amb w/ assistive device, >45 is safe w/o assist device) Short Term Goal (STG) Pt will be able to walk on different surfaces safely ( grass, soft sand or gravel to mimic cobblestones) with CGA> SBA. STG Duration 04/29/22 Skilled Nursing Goal (LTG) Pt will be able to step over 4 doorframe or other objects with use of SPC. LTG Duration 06/10/22 Three Impairment Decreased ability to walk up/ down inclines Impairment Requires arm hold assist when walking on an incline for safety. Short Term Goal (STG) Able to walk up/down a hill with CGA>SBA for safety. STG Duration 04/29/22 Varnish Dipper Goal (LTG) Pt will be able to walk on [employer] [place] with SBA and an adaptive device for the RLE ( AFO) as needed. LTG Duration 06/10/22 Two Impairment Decreased R LE strength Impairment Hyperextension of R knee with gait. R knee strength: Flex is 2/5, Ext is 4/5 and lacking ECC control with end-range extension. R ankle strength: Generally 1 /5 except ankle DF is 0/5. Short Term Goal (STG) Improve R knee and ankle strength 1/2 grade STG Duration 04/29/22 Varnish Dipper Goal (LTG) Pt will demonstrate improved stability with gait with ability to limit R knee hyperextension during gait. LTG Duration 06/10/22 One Impairment Lacks appropriate self care HEP. Impairment Gait speed: 1.33 ft/sec ( measured over 20' walking span ) Short Term Goal (STG) Pt will be independent and consistent with a self care HEP. STG Duration 04/29/22 Skilled Nursing Goal (LTG) Improve gait speed. LTG Duration 06/10/22 Assessment Summary Assessment s/p L CVA 06/2018 with residual R hemiparesis. Gt speed is 1 .33 ft/sec. Pt is very conscientious with ex's that challenge RLE. Today she shows she has slight active R ankle DF, but no EV. Physical Therapy Plan Frequency and Duration Frequency of Treatment 2x/Week Duration of treatment (weeks) 12 Plan of Care Start Date 03/18/22 Plan of Care End Date 06/10/22 Next Visit Focus/Plan Next Note Type Treatment Note Next Visit Plan Discuss use of AFO. Start R knee/ankle, core & pelvic strengthening and ankle ROM ex's, Balance training for weight shifting and ambulation on incline/decline and uneven surfaces. Recommend referral for R AFO or LE walking device if pt agreeable. POC: [facility].
--- NOTE | 2022-03-27 16:19 | PT.OTN ---
Current Diagnoses Hyperlipidemia, unspecified (03/27/22) Essential (primary) hypertension (03/27/22) Muscle weakness (generalized) (03/27/22) Other specified disorders of muscle (03/27/22) Unsteadiness on feet (03/27/22) Other abnormalities of gait and mobility (03/27/22) Physical Therapy Treatment Note PT-OP-A Visit Information Start: 03/18/22 12:11 Freq: Status: Active Protocol: Document 03/27/22 15:21 LRN (Rec: 03/27/22 16:18 LRN [id number]) Out-Patient Physical Therapy Visit Information Visit Information Visit Type Treatment Note Visit Start Time 15:21 Visit Stop Time 16:04 Total Visit Minutes 43 Visit Number 4 Evaluation Information Evaluation Date 03/18/22 Precautions Precautions Osteoporosis, history of falls , HBP controlled by meds. PT-OP-B Current Condition Start: 03/18/22 12:11 Freq: Status: Active Protocol: Document 03/18/22 13:51 LRN (Rec: 03/18/22 14:42 LRN [id number]) Current Condition History of Current Condition Onset Date A few weeks ago referred for stroke rehab at pt request. L CVA 07/22/18 Current Complaints Hasn't had therapy in a yr. 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 States since stroke she has had therapy for a few months each year. Referred by Dr Jose Mcginnis at [facility], who will no longer be following her because he was a fill in physician. Has follow up visit with a physician in June 2022, who will be her primary care physician. Pt reports her walking is still unsteady and her R hand is useless. Pt will be receiving PT & OT. States hamstrings are begining to improve, feeling in her feet is improving, and the inner R ankle ms are getting stronger, so she is not rolling her R ankle any more. Pt complains she doesn't have big toes to help her balance because they curl in. If she steps on something unevenly then it causes her to loose her balance. When walking she looks down at the ground, and if she hears someone behind her, it causes her to tense up and decreases her balance ability because it is very distracting to her. Her balance when statioinary is good, but dynamically is not good. Prior Treatments and Tests See development section below. Developmental History Developmental History She continues to make progress and feels therapy seems to help. Stoke in 07/22/2018 in [place]. Was in intensive care a few days, hospital a week and rehab inpt for 1 month. Home health the following month and outpatient OT/PT from September-Feb 2019. Started therapy again 06/2019 to 10/2019. Fall 08/03/19 with concusion. In 2020 had outpt PT 07/12 to 11/09. Treatment Goals Patient/Caregiver Goals Pt goals: Able to walk up/down hill. Currently she needs to hand onto someone if she is on a incline. Wants to walk on [place] without help. Wants to walk on different surfaces safely (grass, soft sand or gravel, cobblestones). Improve gait stability and speed. Able to step over 4 doorframe or other objects. Prior Functional Status Baseline Function- ADL's Independent Baseline Function- Mobility Independent Baseline Function- Work/School Homemaker. Current Functional Impairments (Reported) Functional Limitations- ADL's Past 2 months walks 1.25 miles 6 days/week. Other exercise is housework. Before walking on trails was doing modified yoga and Pilates exercise daily. Functional Limitations- Mobility/Gait Ambs with SPC, 1.25 miles with cane with spouse assist with inclines and declines. Personal Factors Other Personal Factors That May Effect Pt lives with spouse and son Therapy/Recovery who is a high functioning adult with autism, osteoporosis, intracranial meningioma. PT-OP-C Subjective Start: 03/18/22 12:11 Freq: Status: Active Protocol: Document 03/27/22 15:21 LRN (Rec: 03/27/22 16:18 LRN [id number]) OP-PT Subjective Patient Comments Patient Comments Pt has been trying not to hyperextend her R knee with gait. PT-OP-D Balance Start: 03/18/22 12:11 Freq: Status: Active Protocol: Document 03/21/22 13:02 LRN (Rec: 03/21/22 17:11 LRN [id number]) [place] Balance Assessment Evaluation Sitting to Standing Ability Independent w/out Hands Unsupported Stance Safely- 2 minutes Sitting Unsupported, Feet on Floor Safely- 2 minutes Standing to Sitting Ability Safely, Minimal Hand Use Transfer Ability Safely, Minimal Hand Use Unsupported Stance- Eyes Closed Safely, 10 seconds Unsupported Stance- Eyes Open Independent, 1 minute Reaching Forward Standing Safely, 5 inches Pick- Up Object From Floor Independent/Safe Look Behind Shoulder - Standing Shifts Weight Well Turning 360 Degrees Turns slowly, but safely Unsupported Stance, Alternating Feet on (I)- 8 Steps in > 20 secs Stair Unsupported Tandem Stance Balance Lost- Step/Stand Unilateral Leg Stance Unable,assist to not fall Total Score [place] Total Score (out of 56 points) 44 [place] Impairment Rating 20 to 39% Impaired (Score 34- 44) PT-OP-E Functional Tests Start: 03/18/22 12:11 Freq: Status: Active Protocol: Document 03/18/22 13:51 LRN (Rec: 03/18/22 14:42 LRN [id number]) Functional Tests Five Times Sit to Stand Test Score 19 secs Comments Without use of hands Timed Up and Go (TUG) Score 27 TUG Impairment Rating 100% Impaired (Score 20) PT-OP-G Mobility & Gait Start: 03/18/22 12:11 Freq: Status: Active Protocol: Document 03/18/22 13:51 LRN (Rec: 03/18/22 14:42 LRN [id number]) OP Mobility Evaluation Transfers Sit to Stand Stand to sit sometime uncontrolled. Stands greater on LLE. OP Gait Assessment Gait Gait Assistance Required: Standby Assistance Able to Maintain Weight Bearing Status Yes During Gait Assistive Devices Assistive Device Gait Belt,Straight Cane Orthotic/Prosthetic Devices or Brace: No Gait Deviations General Gait Pattern Decreased Stride Length,Flexed Trunk,Lateral Trunk Lean,Wide Based Gait Factors Limiting Gait Function Factors Limiting Gait Function Abnormal Tonal Influences, Decreased Strength,Limited Range of Motion,Poor Balance Comments Gait Comments Circumducts R LE, R drop foot, holds trunk in R rot, R arm held in flexion contracture. PT-OP-H Neuro Start: 03/18/22 12:11 Freq: Status: Active Protocol: Document 03/18/22 13:51 LRN (Rec: 03/18/22 14:42 LRN [id number]) Sensation Evaluation Gross Sensation Gross Sensation WNL PT-OP-J Posture/Palpation/Skin Start: 03/18/22 12:11 Freq: Status: Active Protocol: Document 03/18/22 13:51 LRN (Rec: 03/18/22 14:42 LRN [id number]) Posture Evaluation Position Standing Head/C-Spine Posture Forward Head T-Spine Posture Rotation Right Shoulder Posture (L) Elevated Knee Posture (R) Genu Recurvatum Comments Posture Comments R handed. PT-OP-M Strength Start: 03/18/22 12:11 Freq: Status: Active Protocol: Document 03/18/22 13:51 LRN (Rec: 03/18/22 14:42 LRN [id number]) Knee Strength Knee Manual Muscle Testing Right Flexion (S2) 2 Poor Extension (L3) 4 Good Left Comments Generally 5/5 Ankle/Foot Strength Ankle and Foot Manual Muscle Testing Right Dorsiflexion (L4) 0 Zero Comments Generally 1/5 except as indicated above. Left Comments Generally 5/5 PT-OP-Q Treatments Start: 03/18/22 12:11 Freq: Status: Active Protocol: Document 03/27/22 15:21 LRN (Rec: 03/27/22 16:18 LRN [id number]) Cardio Equipment Recumbent Elliptical (Biodex) Duration (Minutes) 8 Resistance 5 Seat Position 4 Other Pushing with heel for last 4' using 3# hand wgt&towel roll to prop R foot Gym Equipment Shuttle Recovery Unilateral Squats Details R leg Squat - towel under lat side of foot, bolster to limit R knee ext. Resistance 12# Shuttle Recovery Platform Stable Reps/Time 10' Bilateral Squats Details Elian Squat - towel under lat side of R foot, Lgt blue TB around knees Resistance 25# Shuttle Recovery Platform Stable Reps/Time 8' Therapeutic Exercises Standing Exercises R Gastroc stretch Standing Exercise Name R gastroc stretch on wooden wedge Side right Reps/Minutes 2' Gait Training Gait Activity R Knee control Description R knee control from heel strike to toe off Device Used SPC on L side and use of // bar Level of Assistance SBA Surface Level Treatment Focus R knee control to prevent hyperextension, ankle DF Comments verbal and physical cuing to keep R knee from hyper extending. (initial assess: Gait speed: 20'/ 15 secs = 1.33 ft/sec.) PT-OP-T Assessment and Plan Start: 03/18/22 12:11 Freq: Status: Active Protocol: Document 03/27/22 15:21 LRN (Rec: 03/27/22 16:18 LRN [id number]) Physical Therapy Assessment Goals Four Impairment Decreased standing dynamic balance. Impairment Pt requires railing UE support to step over objects. 03/21/22: [place] Balance Score is 44 (>35 is safe amb w/ assistive device, >45 is safe w/o assist device) Short Term Goal (STG) Pt will be able to walk on different surfaces safely ( grass, soft sand or gravel to mimic cobblestones) with CGA> SBA. STG Duration 04/29/22 Rug [employer] Helper Goal (LTG) Pt will be able to step over 4 doorframe or other objects with use of SPC. LTG Duration 06/10/22 Three Impairment Decreased ability to walk up/ down inclines Impairment Requires arm hold assist when walking on an incline for safety. Short Term Goal (STG) Able to walk up/down a hill with CGA>SBA for safety. STG Duration 04/29/22 Correction Goal (LTG) Pt will be able to walk on [place] channel with SBA and an adaptive device for the RLE ( AFO) as needed. LTG Duration 06/10/22 Two Impairment Decreased R LE strength Impairment Hyperextension of R knee with gait. R knee strength: Flex is 2/5, Ext is 4/5 and lacking ECC control with end-range extension. R ankle strength: Generally 1 /5 except ankle DF is 0/5. Short Term Goal (STG) Improve R knee and ankle strength 1/2 grade STG Duration 04/29/22 Rug Dyer Helper Goal (LTG) Pt will demonstrate improved stability with gait with ability to limit R knee hyperextension during gait. LTG Duration 06/10/22 One Impairment Lacks appropriate self care HEP. Impairment Gait speed: 1.33 ft/sec ( measured over 20' walking span ) Short Term Goal (STG) Pt will be independent and consistent with a self care HEP. STG Duration 04/29/22 Rug Dyer Helper Goal (LTG) Improve gait speed. LTG Duration 06/10/22 Assessment Summary Assessment s/p L CVA 06/2018 with residual R hemiparesis. Pt able to control R knee better with minimal hyperext of knee on shuttle. Pt still hyperextends with gait. After pt discussion of AFO, she reports having had a R AFO, but is not sure where it is, pt to bring in when she finds. Physical Therapy Plan Frequency and Duration Frequency of Treatment 2x/Week Duration of treatment (weeks) 12 Plan of Care Start Date 03/18/22 Plan of Care End Date 06/10/22 Next Visit Focus/Plan Next Note Type Discharge Summary Next Visit Plan Start R knee/ankle, core & pelvic strengthening and ankle ROM ex's (EV, cont DF), Balance training for weight shifting and ambulation on incline/decline and uneven surfaces. Recommend referral for R AFO or LE walking device if pt agreeable. POC: L CVA rehab.
--- NOTE | 2022-03-31 16:22 | PT.OTN ---
Current Diagnoses Hyperlipidemia, unspecified (03/31/22) Essential (primary) hypertension (03/31/22) Muscle weakness (generalized) (03/31/22) Other specified disorders of muscle (03/31/22) Unsteadiness on feet (03/31/22) Other abnormalities of gait and mobility (03/31/22) Physical Therapy Treatment Note PT-OP-A Visit Information Start: 03/18/22 12:11 Freq: Status: Active Protocol: Document 03/31/22 13:02 LRN (Rec: 03/31/22 13:47 LRN [id number]) Out-Patient Physical Therapy Visit Information Visit Information Visit Type Treatment Note Visit Start Time 13:02 Visit Stop Time 13:43 Total Visit Minutes 41 Visit Number 5 PT-OP-B Current Condition Start: 03/18/22 12:11 Freq: Status: Active Protocol: Document 03/18/22 13:51 LRN (Rec: 03/18/22 14:42 LRN [id number]) Current Condition History of Current Condition Onset Date A few weeks ago referred for stroke rehab at pt request. L CVA 07/22/18 Current Complaints Hasn't had therapy in a yr. 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 States since stroke she has had therapy for a few months each year. Referred by Dr Jose Mcginnis at [facility], who will no longer be following her because he was a fill in physician. Has follow up visit with a physician in June 2022, who will be her primary care physician. Pt reports her walking is still unsteady and her R hand is useless. Pt will be receiving PT & OT. States hamstrings are begining to improve, feeling in her feet is improving, and the inner R ankle ms are getting stronger, so she is not rolling her R ankle any more. Pt complains she doesn't have big toes to help her balance because they curl in. If she steps on something unevenly then it causes her to loose her balance. When walking she looks down at the ground, and if she hears someone behind her, it causes her to tense up and decreases her balance ability because it is very distracting to her. Her balance when statioinary is good, but dynamically is not good. Prior Treatments and Tests See development section below. Developmental History Developmental History She continues to make progress and feels therapy seems to help. Stoke in 07/22/2018 in [place]. Was in intensive care a few days, hospital a week and rehab inpt for 1 month. Home health the following month and outpatient OT/PT from September-Feb 2019. Started therapy again 06/2019 to 10/2019. Fall 08/03/19 with concusion. In 2020 had outpt PT 07/12 to 11/09. Treatment Goals Patient/Caregiver Goals Pt goals: Able to walk up/down hill. Currently she needs to hand onto someone if she is on a incline. Wants to walk on [place] without help. Wants to walk on different surfaces safely (grass, soft sand or gravel, cobblestones). Improve gait stability and speed. Able to step over 4 doorframe or other objects. Prior Functional Status Baseline Function- ADL's Independent Baseline Function- Mobility Independent Baseline Function- Work/School Homemaker. Current Functional Impairments (Reported) Functional Limitations- ADL's Past 2 months walks 1.25 miles 6 days/week. Other exercise is housework. Before walking on trails was doing modified yoga and Pilates exercise daily. Functional Limitations- Mobility/Gait Ambs with SPC, 1.25 miles with cane with spouse assist with inclines and declines. Personal Factors Other Personal Factors That May Effect Pt lives with spouse and son Therapy/Recovery who is a high functioning adult with autism, osteoporosis, intracranial meningioma. PT-OP-C Subjective Start: 03/18/22 12:11 Freq: Status: Active Protocol: Document 03/31/22 13:02 LRN (Rec: 03/31/22 16:15 LRN [id number]) OP-PT Subjective Patient Comments Patient Comments Wearing R ankle brace she was told to buy by last PT. PT-OP-D Balance Start: 03/18/22 12:11 Freq: Status: Active Protocol: Document 03/21/22 13:02 LRN (Rec: 03/21/22 17:11 LRN [id number]) [place] Balance Assessment Evaluation Sitting to Standing Ability Independent w/out Hands Unsupported Stance Safely- 2 minutes Sitting Unsupported, Feet on Floor Safely- 2 minutes Standing to Sitting Ability Safely, Minimal Hand Use Transfer Ability Safely, Minimal Hand Use Unsupported Stance- Eyes Closed Safely, 10 seconds Unsupported Stance- Eyes Open Independent, 1 minute Reaching Forward Standing Safely, 5 inches Pick- Up Object From Floor Independent/Safe Look Behind Shoulder - Standing Shifts Weight Well Turning 360 Degrees Turns slowly, but safely Unsupported Stance, Alternating Feet on (I)- 8 Steps in > 20 secs Stair Unsupported Tandem Stance Balance Lost- Step/Stand Unilateral Leg Stance Unable,assist to not fall Total Score [place] Total Score (out of 56 points) 44 [place] Impairment Rating 20 to 39% Impaired (Score 34- 44) PT-OP-E Functional Tests Start: 03/18/22 12:11 Freq: Status: Active Protocol: Document 03/18/22 13:51 LRN (Rec: 03/18/22 14:42 LRN [id number]) Functional Tests Five Times Sit to Stand Test Score 19 secs Comments Without use of hands Timed Up and Go (TUG) Score 27 TUG Impairment Rating 100% Impaired (Score 20) PT-OP-G Mobility & Gait Start: 03/18/22 12:11 Freq: Status: Active Protocol: Document 03/18/22 13:51 LRN (Rec: 03/18/22 14:42 LRN [id number]) OP Mobility Evaluation Transfers Sit to Stand Stand to sit sometime uncontrolled. Stands greater on LLE. OP Gait Assessment Gait Gait Assistance Required: Standby Assistance Able to Maintain Weight Bearing Status Yes During Gait Assistive Devices Assistive Device Gait Belt,Straight Cane Orthotic/Prosthetic Devices or Brace: No Gait Deviations General Gait Pattern Decreased Stride Length,Flexed Trunk,Lateral Trunk Lean,Wide Based Gait Factors Limiting Gait Function Factors Limiting Gait Function Abnormal Tonal Influences, Decreased Strength,Limited Range of Motion,Poor Balance Comments Gait Comments Circumducts R LE, R drop foot, holds trunk in R rot, R arm held in flexion contracture. PT-OP-H Neuro Start: 03/18/22 12:11 Freq: Status: Active Protocol: Document 03/18/22 13:51 LRN (Rec: 03/18/22 14:42 LRN [id number]) Sensation Evaluation Gross Sensation Gross Sensation WNL PT-OP-J Posture/Palpation/Skin Start: 03/18/22 12:11 Freq: Status: Active Protocol: Document 03/18/22 13:51 LRN (Rec: 03/18/22 14:42 LRN [id number]) Posture Evaluation Position Standing Head/C-Spine Posture Forward Head T-Spine Posture Rotation Right Shoulder Posture (L) Elevated Knee Posture (R) Genu Recurvatum Comments Posture Comments R handed. PT-OP-M Strength Start: 03/18/22 12:11 Freq: Status: Active Protocol: Document 03/18/22 13:51 LRN (Rec: 03/18/22 14:42 LRN [id number]) Knee Strength Knee Manual Muscle Testing Right Flexion (S2) 2 Poor Extension (L3) 4 Good Left Comments Generally 5/5 Ankle/Foot Strength Ankle and Foot Manual Muscle Testing Right Dorsiflexion (L4) 0 Zero Comments Generally 1/5 except as indicated above. Left Comments Generally 5/5 PT-OP-Q Treatments Start: 03/18/22 12:11 Freq: Status: Active Protocol: Document 03/31/22 13:02 LRN (Rec: 03/31/22 13:47 LRN [id number]) Cardio Equipment Recumbent Bicycle Duration (Minutes) 9 Resistance 0 Seat Position 1 Other 3' set up: strapping R ft to pedal, cuing to for R knee hyperext & ankle DF Therapeutic Exercises Sitting Exercises Sit<>Stand Sitting Exercise Name Sit<>Stand, L leg held in front of R ~1 ft distance Reps/Minutes 10x with rests inbetween Comments Mod+ A for balance and phys cuing for wgt transfer onto RLE. Standing Exercises Weight shifting Standing Exercise Name Tandem wgt shifting-motor control training Comments Much phys cuing for WBing through RLE R Gastroc stretch Standing Exercise Name R gastroc stretch on JAMIE Side right Reps/Minutes 1' f/b 10 active DF x 2 Gait Training Gait Activity R Knee control Description Lifting knee in straight plane forward, limiting circumduction. Device Used GB/SPC Level of Assistance Moderate Surface Level Distance/Duration 20' Treatment Focus R knee control to prevent hyperextension, ankle DF Comments verbal and physical cuing to keep R knee from hyper extending. (initial assess: Gait speed: 20'/ 15 secs = 1.33 ft/sec.) PT-OP-T Assessment and Plan Start: 03/18/22 12:11 Freq: Status: Active Protocol: Document 03/31/22 13:02 LRN (Rec: 03/31/22 13:47 LRN [id number]) Physical Therapy Assessment Goals Four Impairment Decreased standing dynamic balance. Impairment Pt requires railing UE support to step over objects. 03/21/22: [place] Balance Score is 44 (>35 is safe amb w/ assistive device, >45 is safe w/o assist device) Short Term Goal (STG) Pt will be able to walk on different surfaces safely ( grass, soft sand or gravel to mimic cobblestones) with CGA> SBA. STG Duration 04/29/22 Supervisor [employer] Mill Goal (LTG) Pt will be able to step over 4 doorframe or other objects with use of SPC. LTG Duration 06/10/22 Three Impairment Decreased ability to walk up/ down inclines Impairment Requires arm hold assist when walking on an incline for safety. Short Term Goal (STG) Able to walk up/down a hill with CGA>SBA for safety. STG Duration 04/29/22 Detention Goal (LTG) Pt will be able to walk on [place] with SBA and an adaptive device for the RLE ( AFO) as needed. LTG Duration 06/10/22 Two Impairment Decreased R LE strength Impairment Hyperextension of R knee with gait. R knee strength: Flex is 2/5, Ext is 4/5 and lacking ECC control with end-range extension. R ankle strength: Generally 1 /5 except ankle DF is 0/5. Short Term Goal (STG) Improve R knee and ankle strength 1/2 grade STG Duration 04/29/22 Super[employer] Goal (LTG) Pt will demonstrate improved stability with gait with ability to limit R knee hyperextension during gait. LTG Duration 06/10/22 One Impairment Lacks appropriate self care HEP. Impairment Gait speed: 1.33 ft/sec ( measured over 20' walking span ) Short Term Goal (STG) Pt will be independent and consistent with a self care HEP. STG Duration 04/29/22 Detention Goal (LTG) Improve gait speed. LTG Duration 06/10/22 Assessment Summary Assessment s/p L CVA 06/2018 with residual R hemiparesis. Pt circumducts R LE with hip flexion for swing through phase, but improved with gait training and phys/verbal cuing . Pt is not WBing through RLE with sit<>stand transfers and required much training to minimally improve. Pt has poor awareness of WBing through RLE. Pt demonstrates improved control of R knee from hyperextending, primarily occurs with R stance phase > toe off. Physical Therapy Plan Frequency and Duration Frequency of Treatment 2x/Week Duration of treatment (weeks) 12 Plan of Care Start Date 03/18/22 Plan of Care End Date 06/10/22 Next Visit Focus/Plan Next Note Type Treatment Note Next Visit Plan Error last visit; No DC summary needed. Start R knee/ ankle, core & pelvic strengthening and ankle ROM ex 's (EV, cont DF), Balance training for weight shifting and ambulation on incline/decline and uneven surfaces. Recommend referral for R AFO or LE walking device if pt agreeable. POC: L CVA rehab.
--- NOTE | 2022-04-03 13:46 | PT.OTN ---
Current Diagnoses Hyperlipidemia, unspecified (04/03/22) Essential (primary) hypertension (04/03/22) Muscle weakness (generalized) (04/03/22) Other specified disorders of muscle (04/03/22) Unsteadiness on feet (04/03/22) Other abnormalities of gait and mobility (04/03/22) Physical Therapy Treatment Note PT-OP-A Visit Information Start: 03/18/22 12:11 Freq: Status: Active Protocol: Document 04/03/22 13:08 SP (Rec: 04/03/22 13:49 SP [id number]) Out-Patient Physical Therapy Visit Information Visit Information Visit Type Treatment Note Visit Start Time 13:08 Visit Stop Time 13:46 Total Visit Minutes 38 Visit Number 6 Number of WAISTLINE JOINER LOCKSTITCH Visits 1 Evaluation Information Evaluation Date 03/18/22 Precautions Precautions Osteoporosis, history of falls , HBP controlled by meds. PT-OP-B Current Condition Start: 03/18/22 12:11 Freq: Status: Active Protocol: Document 03/18/22 13:51 LRN (Rec: 03/18/22 14:42 LRN [id number]) Current Condition History of Current Condition Onset Date A few weeks ago referred for stroke rehab at pt request. L CVA 07/22/18 Current Complaints Hasn't had therapy in a yr. 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 States since stroke she has had therapy for a few months each year. Referred by Dr Jose Mcginnis at [facility], who will no longer be following her because he was a fill in physician. Has follow up visit with a physician in June 2022, who will be her primary care physician. Pt reports her walking is still unsteady and her R hand is useless. Pt will be receiving PT & OT. States hamstrings are begining to improve, feeling in her feet is improving, and the inner R ankle ms are getting stronger, so she is not rolling her R ankle any more. Pt complains she doesn't have big toes to help her balance because they curl in. If she steps on something unevenly then it causes her to loose her balance. When walking she looks down at the ground, and if she hears someone behind her, it causes her to tense up and decreases her balance ability because it is very distracting to her. Her balance when statioinary is good, but dynamically is not good. Prior Treatments and Tests See development section below. Developmental History Developmental History She continues to make progress and feels therapy seems to help. Stoke in 07/22/2018 in [place]. Was in intensive care a few days, hospital a week and rehab in for 1 month. Home health the following month and outpatient OT/PT from September-Feb 2019. Started therapy again 06/2019 to 10/2019. Fall 08/03/19 with concusion. In 2020 had outpt PT 07/12 to 11/09. Treatment Goals Patient/Caregiver Goals Pt goals: Able to walk up/down hill. Currently she needs to hand onto someone if she is on a incline. Wants to walk on [place] without help. Wants to walk on different surfaces safely (grass, soft sand or gravel, cobblestones). Improve gait stability and speed. Able to step over 4 doorframe or other objects. Prior Functional Status Baseline Function- ADL's Independent Baseline Function- Mobility Independent Baseline Function- Work/School Homemaker. Current Functional Impairments (Reported) Functional Limitations- ADL's Past 2 months walks 1.25 miles 6 days/week. Other exercise is housework. Before walking on trails was doing modified yoga and Pilates exercise daily. Functional Limitations- Mobility/Gait Ambs with SPC, 1.25 miles with cane with spouse assist with inclines and declines. Personal Factors Other Personal Factors That May Effect Pt lives with spouse and son Therapy/Recovery who is a high functioning adult with autism, osteoporosis, intracranial meningioma. PT-OP-C Subjective Start: 03/18/22 12:11 Freq: Status: Active Protocol: Document 04/03/22 13:08 SP (Rec: 04/03/22 13:49 SP [id number]) OP-PT Subjective Patient Comments Patient Comments Pt reports isn't using the wedge as much as should. Pt arrived using her SPC with her DF strap donned to assist foot clearance. PT-OP-D Balance Start: 03/18/22 12:11 Freq: Status: Active Protocol: Document 03/21/22 13:02 LRN (Rec: 03/21/22 17:11 LRN [id number]) [place] Balance Assessment Evaluation Sitting to Standing Ability Independent w/out Hands Unsupported Stance Safely- 2 minutes Sitting Unsupported, Feet on Floor Safely- 2 minutes Standing to Sitting Ability Safely, Minimal Hand Use Transfer Ability Safely, Minimal Hand Use Unsupported Stance- Eyes Closed Safely, 10 seconds Unsupported Stance- Eyes Open Independent, 1 minute Reaching Forward Standing Safely, 5 inches Pick- Up Object From Floor Independent/Safe Look Behind Shoulder - Standing Shifts Weight Well Turning 360 Degrees Turns slowly, but safely Unsupported Stance, Alternating Feet on (I)- 8 Steps in > 20 secs Stair Unsupported Tandem Stance Balance Lost- Step/Stand Unilateral Leg Stance Unable,assist to not fall Total Score R[place]ford Total Score (out of 56 points) 44 [place]ford Impairment Rating 20 to 39% Impaired (Score 34- 44) PT-OP-E Functional Tests Start: 03/18/22 12:11 Freq: Status: Active Protocol: Document 03/18/22 13:51 LRN (Rec: 03/18/22 14:42 LRN [id number]) Functional Tests Five Times Sit to Stand Test Score 19 secs Comments Without use of hands Timed Up and Go (TUG) Score 27 TUG Impairment Rating 100% Impaired (Score 20) PT-OP-G Mobility & Gait Start: 03/18/22 12:11 Freq: Status: Active Protocol: Document 03/18/22 13:51 LRN (Rec: 03/18/22 14:42 LRN [id number]) OP Mobility Evaluation Transfers Sit to Stand Stand to sit sometime uncontrolled. Stands greater on LLE. OP Gait Assessment Gait Gait Assistance Required: Standby Assistance Able to Maintain Weight Bearing Status Yes During Gait Assistive Devices Assistive Device Gait Belt,Straight Cane Orthotic/Prosthetic Devices or Brace: No Gait Deviations General Gait Pattern Decreased Stride Length,Flexed Trunk,Lateral Trunk Lean,Wide Based Gait Factors Limiting Gait Function Factors Limiting Gait Function Abnormal Tonal Influences, Decreased Strength,Limited Range of Motion,Poor Balance Comments Gait Comments Circumducts R LE, R drop foot, holds trunk in R rot, R arm held in flexion contracture. PT-OP-H Neuro Start: 03/18/22 12:11 Freq: Status: Active Protocol: Document 03/18/22 13:51 LRN (Rec: 03/18/22 14:42 LRN [id number]) Sensation Evaluation Gross Sensation Gross Sensation WNL PT-OP-J Posture/Palpation/Skin Start: 03/18/22 12:11 Freq: Status: Active Protocol: Document 03/18/22 13:51 LRN (Rec: 03/18/22 14:42 LRN [id number]) Posture Evaluation Position Standing Head/C-Spine Posture Forward Head T-Spine Posture Rotation Right Shoulder Posture (L) Elevated Knee Posture (R) Genu Recurvatum Comments Posture Comments R handed. PT-OP-M Strength Start: 03/18/22 12:11 Freq: Status: Active Protocol: Document 03/18/22 13:51 LRN (Rec: 03/18/22 14:42 LRN [id number]) Knee Strength Knee Manual Muscle Testing Right Flexion (S2) 2 Poor Extension (L3) 4 Good Left Comments Generally 5/5 Ankle/Foot Strength Ankle and Foot Manual Muscle Testing Right Dorsiflexion (L4) 0 Zero Comments Generally 1/5 except as indicated above. Left Comments Generally 5/5 PT-OP-Q Treatments Start: 03/18/22 12:11 Freq: Status: Active Protocol: Document 04/03/22 13:08 SP (Rec: 04/03/22 13:49 SP [id number]) Cardio Equipment Recumbent Bicycle Duration (Minutes) 10 Resistance 4 Seat Position 1 w/cushion behind back Other 3' set up: strapping R ft to pedal, cuing to for R knee hyperext & ankle DF Therapeutic Exercises Sitting Exercises Active asst'd R ankle EV Sitting Exercise Name Active asst'd R ankle EV Side right Reps/Minutes 5' Active assisted R ankle DF Sitting Exercise Name Active asst'd R ankle DF Side right Reps/Minutes 5' Sit<>Stand Sitting Exercise Name Sit<>Stand, L leg held in front of R ~1 ft distance Equipment Used mini partial stand hold 3 sec x5- rail front Reps/Minutes 10x with rests inbetween Comments Mod+ A for balance and phys cuing for wgt transfer onto RLE. Standing Exercises mini squat holds Standing Exercise Name added to HEP: HS strengthening Equipment Used rail contact Reps/Minutes 5 reps 5 SH Comments good HS facilitation on R Weight shifting Standing Exercise Name Tandem wgt shifting-motor control training Equipment Used //bars Reps/Minutes up to 3 sec LLE back position, 2 sec RLE back Comments Much phys cuing for WBing through RLE soft knee Self-Care/Home Management Treatment Education Patient Education Home Exercise Program Other Education added mini squat- HS facilitataion PT-OP-T Assessment and Plan Start: 03/18/22 12:11 Freq: Status: Active Protocol: Document 04/03/22 13:08 SP (Rec: 04/03/22 13:49 SP [id number]) Physical Therapy Assessment Goals Four Impairment Decreased standing dynamic balance. Impairment Pt requires railing UE support to step over objects. 03/21/22: [place]ORD Balance Score is 44 (>35 is safe amb w/ assistive device, >45 is safe w/o assist device) Short Term Goal (STG) Pt will be able to walk on different surfaces safely ( grass, soft sand or gravel to mimic cobblestones) with CGA> SBA. STG Duration 04/29/22 Residential Mortgage Manager Goal (LTG) Pt will be able to step over 4 doorframe or other objects with use of SPC. LTG Duration 06/10/22 Three Impairment Decreased ability to walk up/ down inclines Impairment Requires arm hold assist when walking on an incline for safety. Short Term Goal (STG) Able to walk up/down a hill with CGA>SBA for safety. STG Duration 04/29/22 Residential Mortgage Manager Goal (LTG) Pt will be able to walk on [place] with SBA and an adaptive device for the RLE ( AFO) as needed. LTG Duration 06/10/22 Two Impairment Decreased R LE strength Impairment Hyperextension of R knee with gait. R knee strength: Flex is 2/5, Ext is 4/5 and lacking ECC control with end-range extension. R ankle strength: Generally 1 /5 except ankle DF is 0/5. Short Term Goal (STG) Improve R knee and ankle strength 1/2 grade STG Duration 04/29/22 Detention Goal (LTG) Pt will demonstrate improved stability with gait with ability to limit R knee hyperextension during gait. LTG Duration 06/10/22 One Impairment Lacks appropriate self care HEP. Impairment Gait speed: 1.33 ft/sec ( measured over 20' walking span ) Short Term Goal (STG) Pt will be independent and consistent with a self care HEP. STG Duration 04/29/22 Residential Mortgage Manager Goal (LTG) Improve gait speed. LTG Duration 06/10/22 Assessment Summary Assessment Pt responded well to mini squats to HEP for HS facilitation and carryover soft knee positioning at times , cues required for even BLE WB during balance stance activities. Physical Therapy Plan Frequency and Duration Frequency of Treatment 2x/Week Duration of treatment (weeks) 12 Plan of Care Start Date 03/18/22 Plan of Care End Date 06/10/22 Therapeutic Interventions Therapeutic Interventions Aquatic Therapy,Balance Training,Gait Training,Home Exercise Program,Manual Therapy,Neuromuscular Re- education,Patient/Caregiver Education,Self-Care/Home Management,Taping,Therapeutic Activities,Therapeutic Exercises Modalities Cold Pack/Ice Massage,Hot Packs Next Visit Focus/Plan Next Note Type Treatment Note Next Visit Plan Recheck mini squat POC: Start R knee/ankle, core & pelvic strengthening and ankle ROM ex's (EV, cont DF), Balance training for weight shifting and ambulation on incline/decline and uneven surfaces. Recommend referral for R AFO or LE walking device if pt agreeable. POC: L CVA rehab.
--- NOTE | 2022-04-24 13:45 | PT.OTN ---
Current Diagnoses Hyperlipidemia, unspecified (04/24/22) Essential (primary) hypertension (04/24/22) Muscle weakness (generalized) (04/24/22) Other specified disorders of muscle (04/24/22) Unsteadiness on feet (04/24/22) Other abnormalities of gait and mobility (04/24/22) Physical Therapy Treatment Note PT-OP-A Visit Information Start: 03/18/22 12:11 Freq: Status: Active Protocol: Document 04/24/22 13:06 TS (Rec: 04/24/22 14:06 TS [id number]) Out-Patient Physical Therapy Visit Information Visit Information Visit Type Treatment Note Visit Note SPTA Junior lead treatment supervised and directed by TAMI Carballo. Visit Start Time 13:04 Visit Stop Time 13:45 Total Visit Minutes 41 Visit Number 7 Number of CASTER OPERATOR Visits 2 PT-OP-B Current Condition Start: 03/18/22 12:11 Freq: Status: Active Protocol: Document 03/18/22 13:51 LRN (Rec: 03/18/22 14:42 LRN [id number]) Current Condition History of Current Condition Onset Date A few weeks ago referred for stroke rehab at pt request. L CVA 07/22/18 Current Complaints Hasn't had therapy in a yr. 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 States since stroke she has had therapy for a few months each year. Referred by Dr Jose Mcginnis at [facility], who will no longer be following her because he was a fill in physician. Has follow up visit with a physician in June 2022, who will be her primary care physician. Pt reports her walking is still unsteady and her R hand is useless. Pt will be receiving PT & OT. States hamstrings are begining to improve, feeling in her feet is improving, and the inner R ankle ms are getting stronger, so she is not rolling her R ankle any more. Pt complains she doesn't have big toes to help her balance because they curl in. If she steps on something unevenly then it causes her to loose her balance. When walking she looks down at the ground, and if she hears someone behind her, it causes her to tense up and decreases her balance ability because it is very distracting to her. Her balance when statioinary is good, but dynamically is not good. Prior Treatments and Tests See development section below. Developmental History Developmental History She continues to make progress and feels therapy seems to help. Stoke in 07/22/2018 in [place]. Was in intensive care a few days, hospital a week and rehab in for 1 month. Home health the following month and outpatient OT/PT from September-Feb 2019. Started therapy again 06/2019 to 10/2019. Fall 08/03/19 with concusion. In 2020 had outpt PT 07/12 to 11/09. Treatment Goals Patient/Caregiver Goals Pt goals: Able to walk up/down hill. Currently she needs to hand onto someone if she is on a incline. Wants to walk on [place] without help. Wants to walk on different surfaces safely (grass, soft sand or gravel, cobblestones). Improve gait stability and speed. Able to step over 4 doorframe or other objects. Prior Functional Status Baseline Function- ADL's Independent Baseline Function- Mobility Independent Baseline Function- Work/School Homemaker. Current Functional Impairments (Reported) Functional Limitations- ADL's Past 2 months walks 1.25 miles 6 days/week. Other exercise is housework. Before walking on trails was doing modified yoga and Pilates exercise daily. Functional Limitations- Mobility/Gait Ambs with SPC, 1.25 miles with cane with spouse assist with inclines and declines. Personal Factors Other Personal Factors That May Effect Pt lives with spouse and son Therapy/Recovery who is a high functioning adult with autism, osteoporosis, intracranial meningioma. PT-OP-C Subjective Start: 03/18/22 12:11 Freq: Status: Active Protocol: Document 04/24/22 13:06 TS (Rec: 04/24/22 14:06 TS [id number]) OP-PT Subjective Patient Comments Patient Comments Reports she is feeling good. Took a trip to [place] and was able to do her HEP in the hotel room. She reports she is feeling stronger in her RLE and is having an easier time walking. PT-OP-D Balance Start: 03/18/22 12:11 Freq: Status: Active Protocol: Document 03/21/22 13:02 LRN (Rec: 03/21/22 17:11 LRN [id number]) [place] Balance Assessment Evaluation Sitting to Standing Ability Independent w/out Hands Unsupported Stance Safely- 2 minutes Sitting Unsupported, Feet on Floor Safely- 2 minutes Standing to Sitting Ability Safely, Minimal Hand Use Transfer Ability Safely, Minimal Hand Use Unsupported Stance- Eyes Closed Safely, 10 seconds Unsupported Stance- Eyes Open Independent, 1 minute Reaching Forward Standing Safely, 5 inches Pick- Up Object From Floor Independent/Safe Look Behind Shoulder - Standing Shifts Weight Well Turning 360 Degrees Turns slowly, but safely Unsupported Stance, Alternating Feet on (I)- 8 Steps in > 20 secs Stair Unsupported Tandem Stance Balance Lost- Step/Stand Unilateral Leg Stance Unable,assist to not fall Total Score [place]ford Total Score (out of 56 points) 44 [place] Impairment Rating 20 to 39% Impaired (Score 34- 44) PT-OP-E Functional Tests Start: 03/18/22 12:11 Freq: Status: Active Protocol: Document 03/18/22 13:51 LRN (Rec: 03/18/22 14:42 [facility] [id number]) Functional Tests Five Times Sit to Stand Test Score 19 secs Comments Without use of hands Timed Up and Go (TUG) Score 27 TUG Impairment Rating 100% Impaired (Score 20) PT-OP-G Mobility & Gait Start: 03/18/22 12:11 Freq: Status: Active Protocol: Document 03/18/22 13:51 LRN (Rec: 03/18/22 14:42 [facility] [id number]) OP Mobility Evaluation Transfers Sit to Stand Stand to sit sometime uncontrolled. Stands greater on LLE. OP Gait Assessment Gait Gait Assistance Required: Standby Assistance Able to Maintain Weight Bearing Status Yes During Gait Assistive Devices Assistive Device Gait Belt,Straight Cane Orthotic/Prosthetic Devices or Brace: No Gait Deviations General Gait Pattern Decreased Stride Length,Flexed Trunk,Lateral Trunk Lean,Wide Based Gait Factors Limiting Gait Function Factors Limiting Gait Function Abnormal Tonal Influences, Decreased Strength,Limited Range of Motion,Poor Balance Comments Gait Comments Circumducts R LE, R drop foot, holds trunk in R rot, R arm held in flexion contracture. PT-OP-H Neuro Start: 03/18/22 12:11 Freq: Status: Active Protocol: Document 03/18/22 13:51 LRN (Rec: 03/18/22 14:42 LRN [id number]) Sensation Evaluation Gross Sensation Gross Sensation WNL PT-OP-J Posture/Palpation/Skin Start: 03/18/22 12:11 Freq: Status: Active Protocol: Document 03/18/22 13:51 LRN (Rec: 03/18/22 14:42 LRN [id number]) Posture Evaluation Position Standing Head/C-Spine Posture Forward Head T-Spine Posture Rotation Right Shoulder Posture (L) Elevated Knee Posture (R) Genu Recurvatum Comments Posture Comments R handed. PT-OP-M Strength Start: 03/18/22 12:11 Freq: Status: Active Protocol: Document 03/18/22 13:51 LRN (Rec: 03/18/22 14:42 LRN [id number]) Knee Strength Knee Manual Muscle Testing Right Flexion (S2) 2 Poor Extension (L3) 4 Good Left Comments Generally 5/5 Ankle/Foot Strength Ankle and Foot Manual Muscle Testing Right Dorsiflexion (L4) 0 Zero Comments Generally 1/5 except as indicated above. Left Comments Generally 5/5 PT-OP-Q Treatments Start: 03/18/22 12:11 Freq: Status: Active Protocol: Document 04/24/22 13:06 TS (Rec: 04/24/22 14:06 TS [id number]) Cardio Equipment Recumbent Bicycle Duration (Minutes) 10 Resistance 4 Seat Position 1 w/cushion behind back Other 3' set up: strapping R ft to pedal, cuing to for R knee hyperext & ankle DF Therapeutic Exercises Sitting Exercises Active asst'd R ankle EV Sitting Exercise Name Active asst'd R ankle EV Side right Reps/Minutes 5' Comments Cues for actively doing the movement asmuch as possible then using the TB Active assisted R ankle DF Sitting Exercise Name Active asst'd R ankle DF Side right Reps/Minutes 5' Sit<>Stand Sitting Exercise Name Sit<>[place] Equipment Used Mesh chair Reps/Minutes 2x10 gastroc stretch in between Comments Good form, weight over balls of feet, hip hinge Standing Exercises Heel Raises Standing Exercise Name Heel Raises in // bars Side bilateral Equipment Used // bars Reps/Minutes 2x10 Comments Demonstrates more weight on LLE than RLE. mini squat holds Standing Exercise Name HS strengthening Equipment Used rail contact Reps/Minutes 2x10 reps 5 SH Comments Putting weight more onto RLE, good form. R Gastroc stretch Standing Exercise Name R gastroc stretch on JAMIE Side right Reps/Minutes 2x30 RLE PT-OP-T Assessment and Plan Start: 03/18/22 12:11 Freq: Status: Active Protocol: Document 04/24/22 13:06 TS (Rec: 04/24/22 14:06 TS [id number]) Physical Therapy Assessment Rehab Potential Rehabilitation Potential Good Evaluation Complexity Number of Personal Factors/Comorbidities 3 or More Number of Body Systems Impaired 4 or More Clinical Presentation at Evaluation Evolving Impairments Impairments Activity Tolerance,Balance, Gait,Posture,ROM,Sensation, Strength,Tone,Transfers Goals Four Impairment Decreased standing dynamic balance. Impairment Pt requires railing UE support to step over objects. 03/21/22: [place]ORD Balance Score is 44 (>35 is safe amb w/ assistive device, >45 is safe w/o assist device) Short Term Goal (STG) Pt will be able to walk on different surfaces safely ( grass, soft sand or gravel to mimic cobblestones) with CGA> SBA. STG Duration 04/29/22 Half-Way Goal (LTG) Pt will be able to step over 4 doorframe or other objects with use of SPC. LTG Duration 06/10/22 Three Impairment Decreased ability to walk up/ down inclines Impairment Requires arm hold assist when walking on an incline for safety. Short Term Goal (STG) Able to walk up/down a hill with CGA>SBA for safety. STG Duration 04/29/22 Half-Way Goal (LTG) Pt will be able to walk on [place] with SBA and an adaptive device for the RLE ( AFO) as needed. LTG Duration 06/10/22 Two Impairment Decreased R LE strength Impairment Hyperextension of R knee with gait. R knee strength: Flex is 2/5, Ext is 4/5 and lacking ECC control with end-range extension. R ankle strength: Generally 1 /5 except ankle DF is 0/5. Short Term Goal (STG) Improve R knee and ankle strength 1/2 grade STG Duration 04/29/22 Half-Way Goal (LTG) Pt will demonstrate improved stability with gait with ability to limit R knee hyperextension during gait. LTG Duration 06/10/22 One Impairment Lacks appropriate self care HEP. Impairment Gait speed: 1.33 ft/sec ( measured over 20' walking span ) Short Term Goal (STG) Pt will be independent and consistent with a self care HEP. STG Duration 04/29/22 Solder Deposit Operator Goal (LTG) Improve gait speed. LTG Duration 06/10/22 Progress Towards Goals Progress Towards Goals Progressing Toward Goals Assessment Summary Assessment Pt demonstrated good carryover of sit to stand & mini squat form/sequencing and soft knee positioning. Educated her on proper sequencing of AAROM ankle ex with TB with cues for muscle activation then assist with TB. She will benefit from continued skilled intervention to improve strength in LE's. Physical Therapy Plan Frequency and Duration Frequency of Treatment 2x/Week Duration of treatment (weeks) 12 Plan of Care Start Date 03/18/22 Plan of Care End Date 06/10/22 Therapeutic Interventions Therapeutic Interventions Aquatic Therapy,Balance Training,Gait Training,Home Exercise Program,Manual Therapy,Neuromuscular Re- education,Patient/Caregiver Education,Self-Care/Home Management,Taping,Therapeutic Activities,Therapeutic Exercises Modalities Cold Pack/Ice Massage,Hot Packs Next Visit Focus/Plan Next Note Type Treatment Note Next Visit Plan Recheck heel raises HEP, Continue strengthening of LEs, trial balance ex. POC: Start R knee/ankle, core & pelvic strengthening and ankle ROM ex's (EV, cont DF), Balance training for weight shifting and ambulation on incline/decline and uneven surfaces. Recommend referral for R AFO or LE walking device if pt agreeable. POC: [facility].
--- NOTE | 2022-05-01 16:41 | PT.OTN ---
Current Diagnoses Hyperlipidemia, unspecified (05/01/22) Essential (primary) hypertension (05/01/22) Muscle weakness (generalized) (05/01/22) Other specified disorders of muscle (05/01/22) Unsteadiness on feet (05/01/22) Other abnormalities of gait and mobility (05/01/22) Physical Therapy Treatment Note PT-OP-A Visit Information Start: 03/18/22 12:11 Freq: Status: Active Protocol: Document 05/01/22 14:38 LRN (Rec: 05/01/22 15:22 LRN [id number]) Out-Patient Physical Therapy Visit Information Visit Information Visit Type Treatment Note Visit Start Time 14:38 Visit Stop Time 13:18 Total Visit Minutes 40 Visit Number 8 Evaluation Information Evaluation Date 03/18/22 Precautions Precautions Osteoporosis, history of falls , HBP controlled by meds. PT-OP-B Current Condition Start: 03/18/22 12:11 Freq: Status: Active Protocol: Document 03/18/22 13:51 LRN (Rec: 03/18/22 14:42 LRN [id number]) Current Condition History of Current Condition Onset Date A few weeks ago referred for stroke rehab at pt request. L CVA 07/22/18 Current Complaints Hasn't had therapy in a yr. 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 States since stroke she has had therapy for a few months each year. Referred by Dr Jose Mcginnis at [facility], who will no longer be following her because he was a fill in physician. Has follow up visit with a physician in June 2022, who will be her primary care physician. Pt reports her walking is still unsteady and her R hand is useless. Pt will be receiving PT & OT. States hamstrings are begining to improve, feeling in her feet is improving, and the inner R ankle ms are getting stronger, so she is not rolling her R ankle any more. Pt complains she doesn't have big toes to help her balance because they curl in. If she steps on something unevenly then it causes her to loose her balance. When walking she looks down at the ground, and if she hears someone behind her, it causes her to tense up and decreases her balance ability because it is very distracting to her. Her balance when statioinary is good, but dynamically is not good. Prior Treatments and Tests See development section below. Developmental History Developmental History She continues to make progress and feels therapy seems to help. Stoke in 07/22/2018 in [place]. Was in intensive care a few days, hospital a week and rehab inpt for 1 month. Home health the following month and outpatient OT/PT from September-Feb 2019. Started therapy again 06/2019 to 10/2019. Fall 08/03/19 with concusion. In 2020 had outpt PT 07/12 to 11/09. Treatment Goals Patient/Caregiver Goals Pt goals: Able to walk up/down hill. Currently she needs to hand onto someone if she is on a incline. Wants to walk on [place] without help. Wants to walk on different surfaces safely (grass, soft sand or gravel, cobblestones). Improve gait stability and speed. Able to step over 4 doorframe or other objects. Prior Functional Status Baseline Function- ADL's Independent Baseline Function- Mobility Independent Baseline Function- Work/School Homemaker. Current Functional Impairments (Reported) Functional Limitations- ADL's Past 2 months walks 1.25 miles 6 days/week. Other exercise is housework. Before walking on trails was doing modified yoga and Pilates exercise daily. Functional Limitations- Mobility/Gait Ambs with SPC, 1.25 miles with cane with spouse assist with inclines and declines. Personal Factors Other Personal Factors That May Effect Pt lives with spouse and son Therapy/Recovery who is a high functioning adult with autism, osteoporosis, intracranial meningioma. PT-OP-C Subjective Start: 03/18/22 12:11 Freq: Status: Active Protocol: Document 05/01/22 14:38 LRN (Rec: 05/01/22 15:22 LRN [id number]) OP-PT Subjective Patient Comments Patient Comments ............. PT-OP-D Balance Start: 03/18/22 12:11 Freq: Status: Active Protocol: Document 03/21/22 13:02 LRN (Rec: 03/21/22 17:11 LRN [id number]) Rutherford Balance Assessment Evaluation Sitting to Standing Ability Independent w/out Hands Unsupported Stance Safely- 2 minutes Sitting Unsupported, Feet on Floor Safely- 2 minutes Standing to Sitting Ability Safely, Minimal Hand Use Transfer Ability Safely, Minimal Hand Use Unsupported Stance- Eyes Closed Safely, 10 seconds Unsupported Stance- Eyes Open Independent, 1 minute Reaching Forward Standing Safely, 5 inches Pick- Up Object From Floor Independent/Safe Look Behind Shoulder - Standing Shifts Weight Well Turning 360 Degrees Turns slowly, but safely Unsupported Stance, Alternating Feet on (I)- 8 Steps in > 20 secs Stair Unsupported Tandem Stance Balance Lost- Step/Stand Unilateral Leg Stance Unable,assist to not fall Total Score Rutherford Total Score (out of 56 points) 44 Rutherford Impairment Rating 20 to 39% Impaired (Score 34- 44) PT-OP-E Functional Tests Start: 03/18/22 12:11 Freq: Status: Active Protocol: Document 03/18/22 13:51 LRN (Rec: 03/18/22 14:42 LRN [id number]) Functional Tests Five Times Sit to Stand Test Score 19 secs Comments Without use of hands Timed Up and Go (TUG) Score 27 TUG Impairment Rating 100% Impaired (Score 20) PT-OP-G Mobility & Gait Start: 03/18/22 12:11 Freq: Status: Active Protocol: Document 03/18/22 13:51 LRN (Rec: 03/18/22 14:42 LRN [id number]) OP Mobility Evaluation Transfers Sit to Stand Stand to sit sometime uncontrolled. Stands greater on LLE. OP Gait Assessment Gait Gait Assistance Required: Standby Assistance Able to Maintain Weight Bearing Status Yes During Gait Assistive Devices Assistive Device Gait Belt,Straight Cane Orthotic/Prosthetic Devices or Brace: No Gait Deviations General Gait Pattern Decreased Stride Length,Flexed Trunk,Lateral Trunk Lean,Wide Based Gait Factors Limiting Gait Function Factors Limiting Gait Function Abnormal Tonal Influences, Decreased Strength,Limited Range of Motion,Poor Balance Comments Gait Comments Circumducts R LE, R drop foot, holds trunk in R rot, R arm held in flexion contracture. PT-OP-H Neuro Start: 03/18/22 12:11 Freq: Status: Active Protocol: Document 03/18/22 13:51 LRN (Rec: 03/18/22 14:42 LRN [id number]) Sensation Evaluation Gross Sensation Gross Sensation WNL PT-OP-J Posture/Palpation/Skin Start: 03/18/22 12:11 Freq: Status: Active Protocol: Document 03/18/22 13:51 LRN (Rec: 03/18/22 14:42 LRN [id number]) Posture Evaluation Position Standing Head/C-Spine Posture Forward Head T-Spine Posture Rotation Right Shoulder Posture (L) Elevated Knee Posture (R) Genu Recurvatum Comments Posture Comments R handed. PT-OP-M Strength Start: 03/18/22 12:11 Freq: Status: Active Protocol: Document 03/18/22 13:51 LRN (Rec: 03/18/22 14:42 LRN [id number]) Knee Strength Knee Manual Muscle Testing Right Flexion (S2) 2 Poor Extension (L3) 4 Good Left Comments Generally 5/5 Ankle/Foot Strength Ankle and Foot Manual Muscle Testing Right Dorsiflexion (L4) 0 Zero Comments Generally 1/5 except as indicated above. Left Comments Generally 5/5 PT-OP-Q Treatments Start: 03/18/22 12:11 Freq: Status: Active Protocol: Document 05/01/22 14:38 LRN (Rec: 05/01/22 15:22 LRN [id number]) Therapeutic Exercises Sitting Exercises Knee flex Sitting Exercise Name Active-AA knee flex Side right Equipment Used Using TB to assist with flex Reps/Minutes 10x Ankle PF Sitting Exercise Name Assisted ankle PF Side right Reps/Minutes 4' Ankle IV Sitting Exercise Name Assisted ankle IV Side right Reps/Minutes 4' Active asst'd R ankle EV Sitting Exercise Name Active asst'd R ankle EV Side right Reps/Minutes 4' Comments Cues for actively doing the movement asmuch as possible then using the TB Active assisted R ankle DF Sitting Exercise Name Active asst'd R ankle DF Side right Reps/Minutes 4' Sit<>Stand Sitting Exercise Name Sit<>Stand, last set L leg held in front of R Equipment Used Mesh chair Reps/Minutes 3x10 gastroc stretch in between Comments Cuing for increased WBing thru RLE, weight over balls of feet, hip hinge Standing Exercises Heel Raises Standing Exercise Name Heel Raises in // bars Side bilateral Equipment Used // bars Reps/Minutes 5x Comments Demonstrates more weight on LLE than RLE. mini squat holds Standing Exercise Name HS strengthening Equipment Used rail contact Reps/Minutes 2x10 reps 5 SH Comments Putting weight more onto RLE, good form. R Gastroc stretch Standing Exercise Name R gastroc stretch on JAMIE f/b active DF x 10 Side right Reps/Minutes 2x30 RLE PT-OP-T Assessment and Plan Start: 03/18/22 12:11 Freq: Status: Active Protocol: Document 05/01/22 14:38 LRN (Rec: 05/01/22 15:22 LRN [id number]) Physical Therapy Assessment Goals Four Impairment Decreased standing dynamic balance. Impairment Pt requires railing UE support to step over objects. 03/21/22: RUTHERFORD Balance Score is 44 (>35 is safe amb w/ assistive device, >45 is safe w/o assist device) Short Term Goal (STG) Pt will be able to walk on different surfaces safely ( grass, soft sand or gravel to mimic cobblestones) with CGA> SBA. STG Duration 04/29/22 Shelter Goal (LTG) Pt will be able to step over 4 doorframe or other objects with use of SPC. LTG Duration 06/10/22 Three Impairment Decreased ability to walk up/ down inclines Impairment Requires arm hold assist when walking on an incline for safety. Short Term Goal (STG) Able to walk up/down a hill with CGA>SBA for safety. STG Duration 04/29/22 Fitter Tacker Goal (LTG) Pt will be able to walk on [employer] [place] with SBA and an adaptive device for the RLE ( AFO) as needed. LTG Duration 06/10/22 Two Impairment Decreased R LE strength Impairment Hyperextension of R knee with gait. R knee strength: Flex is 2/5, Ext is 4/5 and lacking ECC control with end-range extension. R ankle strength: Generally 1 /5 except ankle DF is 0/5. Short Term Goal (STG) Improve R knee and ankle strength 1/2 grade STG Duration 04/29/22 Shelter Goal (LTG) Pt will demonstrate improved stability with gait with ability to limit R knee hyperextension during gait. LTG Duration 06/10/22 One Impairment Lacks appropriate self care HEP. Impairment Gait speed: 1.33 ft/sec ( measured over 20' walking span ) Short Term Goal (STG) Pt will be independent and consistent with a self care HEP. 04/03/22: Mini squats & sit<> stand. 11/3/22: Asst'd ankle DF and IV; standing heel raises. STG Duration 04/29/22 Shelter Goal (LTG) Improve gait speed. LTG Duration 06/10/22 Assessment Summary Assessment Pt getting a little more R ankle DF mobility recently and states she can feel a heel lift with standing R ankle PF, although standing heel raises may be accentuating R LE tone ; therefore minimize ankle PF tone. Physical Therapy Plan Frequency and Duration Frequency of Treatment 2x/Week Duration of treatment (weeks) 12 Plan of Care Start Date 03/18/22 Plan of Care End Date 06/10/22 Next Visit Focus/Plan Next Note Type Treatment Note Next Visit Plan Assess appropriateness of pt's R AFO for walking. Continue strengthening of LEs, avoiding increasing tone; trial balance ex. POC: R knee/ankle, core & pelvic strengthening and R ankle ROM ex's (EV, cont DF), Balance training for weight shifting and ambulation on incline/decline and uneven surfaces. POC: L CVA rehab.
--- NOTE | 2022-05-08 15:44 | PT.OTN ---
Current Diagnoses Hyperlipidemia, unspecified (05/08/22) Essential (primary) hypertension (05/08/22) Muscle weakness (generalized) (05/08/22) Other specified disorders of muscle (05/08/22) Unsteadiness on feet (05/08/22) Other abnormalities of gait and mobility (05/08/22) Physical Therapy Treatment Note PT-OP-A Visit Information Start: 03/18/22 12:11 Freq: Status: Active Protocol: Document 05/08/22 13:09 LRN (Rec: 05/08/22 15:43 LRN [id number]) Out-Patient Physical Therapy Visit Information Visit Information Visit Type Treatment Note Visit Start Time 14:36 Visit Stop Time 15:22 Total Visit Minutes 46 Visit Number 9 Evaluation Information Evaluation Date 03/18/22 Precautions Precautions Osteoporosis, history of falls , HBP controlled by meds. PT-OP-B Current Condition Start: 03/18/22 12:11 Freq: Status: Active Protocol: Document 03/18/22 13:51 LRN (Rec: 03/18/22 14:42 LRN [id number]) Current Condition History of Current Condition Onset Date A few weeks ago referred for stroke rehab at pt request. L CVA 07/22/18 Current Complaints Hasn't had therapy in a yr. 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 States since stroke she has had therapy for a few months each year. Referred by Dr Jose Mcginnis at [facility], who will no longer be following her because he was a fill in physician. Has follow up visit with a physician in June 2022, who will be her primary care physician. Pt reports her walking is still unsteady and her R hand is useless. Pt will be receiving PT & OT. States hamstrings are begining to improve, feeling in her feet is improving, and the inner R ankle ms are getting stronger, so she is not rolling her R ankle any more. Pt complains she doesn't have big toes to help her balance because they curl in. If she steps on something unevenly then it causes her to loose her balance. When walking she looks down at the ground, and if she hears someone behind her, it causes her to tense up and decreases her balance ability because it is very distracting to her. Her balance when statioinary is good, but dynamically is not good. Prior Treatments and Tests See development section below. Developmental History Developmental History She continues to make progress and feels therapy seems to help. Stoke in 07/22/2018 in [place]. Was in intensive care a few days, hospital a week and rehab inpt for 1 month. Home health the following month and outpatient OT/PT from September-Feb 2019. Started therapy again 06/2019 to 10/2019. Fall 08/03/19 with concusion. In 2020 had outpt PT 07/12 to 11/09. Treatment Goals Patient/Caregiver Goals Pt goals: Able to walk up/down hill. Currently she needs to hand onto someone if she is on a incline. Wants to walk on [place] without help. Wants to walk on different surfaces safely (grass, soft sand or gravel, cobblestones). Improve gait stability and speed. Able to step over 4 doorframe or other objects. Prior Functional Status Baseline Function- ADL's Independent Baseline Function- Mobility Independent Baseline Function- Work/School Homemaker. Current Functional Impairments (Reported) Functional Limitations- ADL's Past 2 months walks 1.25 miles 6 days/week. Other exercise is housework. Before walking on trails was doing modified yoga and Pilates exercise daily. Functional Limitations- Mobility/Gait Ambs with SPC, 1.25 miles with cane with spouse assist with inclines and declines. Personal Factors Other Personal Factors That May Effect Pt lives with spouse and son Therapy/Recovery who is a high functioning adult with autism, osteoporosis, intracranial meningioma. PT-OP-C Subjective Start: 03/18/22 12:11 Freq: Status: Active Protocol: Document 05/08/22 13:09 LRN (Rec: 05/08/22 15:43 LRN [id number]) OP-PT Subjective Patient Comments Patient Comments Doing 20x with resistance band , squats and sit<>stand ex. Doing 30 reps toe circles and ankle bends using L hand to help. Pt feels 1x/week is good. States her speed of gait on the [place] is faster and she is walking farther. PT-OP-D Balance Start: 03/18/22 12:11 Freq: Status: Active Protocol: Document 03/21/22 13:02 LRN (Rec: 03/21/22 17:11 LRN [id number]) Rutherford Balance Assessment Evaluation Sitting to Standing Ability Independent w/out Hands Unsupported Stance Safely- 2 minutes Sitting Unsupported, Feet on Floor Safely- 2 minutes Standing to Sitting Ability Safely, Minimal Hand Use Transfer Ability Safely, Minimal Hand Use Unsupported Stance- Eyes Closed Safely, 10 seconds Unsupported Stance- Eyes Open Independent, 1 minute Reaching Forward Standing Safely, 5 inches Pick- Up Object From Floor Independent/Safe Look Behind Shoulder - Standing Shifts Weight Well Turning 360 Degrees Turns slowly, but safely Unsupported Stance, Alternating Feet on (I)- 8 Steps in > 20 secs Stair Unsupported Tandem Stance Balance Lost- Step/Stand Unilateral Leg Stance Unable,assist to not fall Total Score Rutherford Total Score (out of 56 points) 44 Rutherford Impairment Rating 20 to 39% Impaired (Score 34- 44) PT-OP-E Functional Tests Start: 03/18/22 12:11 Freq: Status: Active Protocol: Document 05/08/22 13:09 LRN (Rec: 05/08/22 15:43 LRN [id number]) Functional Tests Five Times Sit to Stand Test Score 17 secs Comments Previous on 03/18/22: 19 secs. Timed Up and Go (TUG) Score 23 secs Comments Previous 27 secs TUG Impairment Rating 100% Impaired (Score 20) PT-OP-G Mobility & Gait Start: 03/18/22 12:11 Freq: Status: Active Protocol: Document 03/18/22 13:51 LRN (Rec: 03/18/22 14:42 LRN [id number]) OP Mobility Evaluation Transfers Sit to Stand Stand to sit sometime uncontrolled. Stands greater on LLE. OP Gait Assessment Gait Gait Assistance Required: Standby Assistance Able to Maintain Weight Bearing Status Yes During Gait Assistive Devices Assistive Device Gait Belt,Straight Cane Orthotic/Prosthetic Devices or Brace: No Gait Deviations General Gait Pattern Decreased Stride Length,Flexed Trunk,Lateral Trunk Lean,Wide Based Gait Factors Limiting Gait Function Factors Limiting Gait Function Abnormal Tonal Influences, Decreased Strength,Limited Range of Motion,Poor Balance Comments Gait Comments Circumducts R LE, R drop foot, holds trunk in R rot, R arm held in flexion contracture. PT-OP-H Neuro Start: 03/18/22 12:11 Freq: Status: Active Protocol: Document 03/18/22 13:51 LRN (Rec: 03/18/22 14:42 LRN [id number]) Sensation Evaluation Gross Sensation Gross Sensation WNL PT-OP-J Posture/Palpation/Skin Start: 03/18/22 12:11 Freq: Status: Active Protocol: Document 03/18/22 13:51 LRN (Rec: 03/18/22 14:42 LRN [id number]) Posture Evaluation Position Standing Head/C-Spine Posture Forward Head T-Spine Posture Rotation Right Shoulder Posture (L) Elevated Knee Posture (R) Genu Recurvatum Comments Posture Comments R handed. PT-OP-M Strength Start: 03/18/22 12:11 Freq: Status: Active Protocol: Document 03/18/22 13:51 LRN (Rec: 03/18/22 14:42 LRN [id number]) Knee Strength Knee Manual Muscle Testing Right Flexion (S2) 2 Poor Extension (L3) 4 Good Left Comments Generally 5/5 Ankle/Foot Strength Ankle and Foot Manual Muscle Testing Right Dorsiflexion (L4) 0 Zero Comments Generally 1/5 except as indicated above. Left Comments Generally 5/5 PT-OP-Q Treatments Start: 03/18/22 12:11 Freq: Status: Active Protocol: Document 05/08/22 13:09 LRN (Rec: 05/08/22 15:43 LRN [id number]) Cardio Equipment Recumbent Bicycle Duration (Minutes) 10 Resistance 4 Seat Position 1 - green cushion behind back Other 3' set up: strapping R ft to pedal, cuing to for R knee hyperext & ankle DF Therapeutic Exercises Sitting Exercises Sit<>Stand Sitting Exercise Name Sit<>Stand Equipment Used SPC, no use of UE's to stand Comments 5x STS in Standing Exercises Weight shifting Standing Exercise Name Wgt shifting & WS leg lift- motor control training Side bilateral Equipment Used //bars Reps/Minutes 4 Comments Phys cuing for WBing through RLE soft knee Gait Training Gait Activity R Knee control Description Lifting R knee in strgt plane & limiting knee hyerext & circumduction. Device Used // bars Level of Assistance Moderate cuing to R knee and Max A to keep R hand on railing Surface Level Distance/Duration 27' Treatment Focus R knee control to prevent hyperextension, ankle DF Comments verbal and physical cuing to keep R knee from hyper extending. (initial assess on 03/18/22: Gait speed: 20'/15 secs = 1.33 ft/sec.) (2nd assess on 05/08/22: Gt speed 20/14 secs = 1.42 ft/sec ) PT-OP-T Assessment and Plan Start: 03/18/22 12:11 Freq: Status: Active Protocol: Document 05/08/22 13:09 LRN (Rec: 05/08/22 15:43 LRN [id number]) Physical Therapy Assessment Goals Four Impairment Decreased standing dynamic balance. Impairment Pt requires railing UE support to step over objects. 03/21/22: RUTHERFORD Balance Score is 44 (>35 is safe amb w/ assistive device, >45 is safe w/o assist device) Short Term Goal (STG) Pt will be able to walk on different surfaces safely ( grass, soft sand or gravel to mimic cobblestones) with CGA> SBA. 05/08/22: Walked on hard sand with spouse giving CGA. STG Duration 04/29/22 progressing 05/08/22 . Mcc Goal (LTG) Pt will be able to step over 4 doorframe or other objects with use of SPC. LTG Duration 06/10/22 Three Impairment Decreased ability to walk up/ down inclines Impairment Requires arm hold assist when walking on an incline for safety. Short Term Goal (STG) Able to walk up/down a hill with CGA>SBA for safety. 05/08/22: Walking small incline on [place]. STG Duration 04/29/22 progressing . Business Management Manager Goal (LTG) Pt will be able to walk on [place] with SBA and an adaptive device for the RLE ( AFO) as needed. 05/08/22: Pt walking with spouse on [place] with SBA and ankle support. LTG Duration 06/10/22 (: MET GOAL). Two Impairment Decreased R LE strength Impairment Hyperextension of R knee with gait. R knee strength: Flex is 2/5, Ext is 4/5 and lacking ECC control with end-range extension. R ankle strength: Generally 1 /5 except ankle DF is 0/5. Short Term Goal (STG) Improve R knee and ankle strength 1/2 grade STG Duration 04/29/22 Business Management Manager Goal (LTG) Pt will demonstrate improved stability with gait with ability to limit R knee hyperextension during gait. LTG Duration 06/10/22 One Impairment Lacks appropriate self care HEP. Impairment Gait speed: 1.33 ft/sec ( measured over 20' walking span ) Short Term Goal (STG) Pt will be independent and consistent with a self care HEP. 04/03/22: Mini squats & sit<> stand. 04/24/22: Asst'd ankle DF and IV; standing heel raises. STG Duration 04/29/22 progressing Mcc Goal (LTG) Improve gait speed. 05/08/22: Gt speed with cane, ankle support/GB/SBA, 20ft/14 secs = 1.42 ft/sec. LTG Duration 06/10/22 progressing 05/08/22 Progress Towards Goals Progress Towards Goals Progressing Toward Goals Progress Comments Gt speed w/cane/ankle support/ GB/SBA = 1.42 ft/sec, ( previously 03/18/22 was 1.33 ft /sec). 5x Sit to Stand: 17 secs ( previously 03/18/22 was 19 secs ). TUG score: 23 secs ( previously 03/18/22 was 27 secs ) Assessment Summary Assessment Improved gt speed, 5x Sit To Stand Test, and TUG score. Walking ability has improved with pt able to walk [place] with spouse SBNeftaly. Pt has not practiced hills. Pt is able to control R knee hyperextension somewhat, but might benefit from AFO to contol knee hyperextension. Physical Therapy Plan Frequency and Duration Frequency of Treatment 2x/Week Duration of treatment (weeks) 12 Plan of Care Start Date 03/18/22 Plan of Care End Date 06/10/22 Next Visit Focus/Plan Next Note Type Progress Note Next Visit Plan Assess RUTHERFORD, R LE strength of ankle/knee, and stepping over 4 doorframe. Discuss pt getting R AFO for walking. Continue strengthening of LEs, avoiding increasing R knee hyper ext tone & core & pelvic strengthening Balance/gait ex. POC: L CVA rehab. R knee/ ankle, core & pelvic strengthening and R ankle ROM ex's (EV, cont DF), Balance training for weight shifting and ambulation on incline/decline and uneven surfaces.
--- NOTE | 2022-05-22 16:09 | PT.OTN ---
Current Diagnoses Hyperlipidemia, unspecified (05/22/22) Essential (primary) hypertension (05/22/22) Muscle weakness (generalized) (05/22/22) Other specified disorders of muscle (05/22/22) Unsteadiness on feet (05/22/22) Other abnormalities of gait and mobility (05/22/22) Physical Therapy Treatment Note PT-OP-A Visit Information Start: 03/18/22 12:11 Freq: Status: Active Protocol: Document 05/22/22 10:40 LRN (Rec: 05/22/22 11:26 LRN [id number]) Out-Patient Physical Therapy Visit Information Visit Information Visit Type Progress Note Visit Start Time 10:40 Visit Stop Time 11:23 Total Visit Minutes 43 Visit Number 10 Evaluation Information Evaluation Date 03/18/22 Precautions Precautions Osteoporosis, history of falls , HBP controlled by meds. PT-OP-B Current Condition Start: 03/18/22 12:11 Freq: Status: Active Protocol: Document 03/18/22 13:51 LRN (Rec: 03/18/22 14:42 LRN [id number]) Current Condition History of Current Condition Onset Date A few weeks ago referred for stroke rehab at pt request. L CVA 07/22/18 Current Complaints Hasn't had therapy in a yr. 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 States since stroke she has had therapy for a few months each year. Referred by Dr Jose Mcginnis at [facility], who will no longer be following her because he was a fill in physician. Has follow up visit with a physician in June 2022, who will be her primary care physician. Pt reports her walking is still unsteady and her R hand is useless. Pt will be receiving PT & OT. States hamstrings are begining to improve, feeling in her feet is improving, and the inner R ankle ms are getting stronger, so she is not rolling her R ankle any more. Pt complains she doesn't have big toes to help her balance because they curl in. If she steps on something unevenly then it causes her to loose her balance. When walking she looks down at the ground, and if she hears someone behind her, it causes her to tense up and decreases her balance ability because it is very distracting to her. Her balance when statioinary is good, but dynamically is not good. Prior Treatments and Tests See development section below. Developmental History Developmental History She continues to make progress and feels therapy seems to help. Stoke in 07/22/2018 in [place]. Was in intensive care a few days, hospital a week and rehab in for 1 month. Home health the following month and outpatient OT/PT from September-Feb 2019. Started therapy again 06/2019 to 10/2019. Fall 08/03/19 with concusion. In 2020 had outpt PT 07/12 to 11/09. Treatment Goals Patient/Caregiver Goals Pt goals: Able to walk up/down hill. Currently she needs to hand onto someone if she is on a incline. Wants to walk on [place] without help. Wants to walk on different surfaces safely (grass, soft sand or gravel, cobblestones). Improve gait stability and speed. Able to step over 4 doorframe or other objects. Prior Functional Status Baseline Function- ADL's Independent Baseline Function- Mobility Independent Baseline Function- Work/School Homemaker. Current Functional Impairments (Reported) Functional Limitations- ADL's Past 2 months walks 1.25 miles 6 days/week. Other exercise is housework. Before walking on trails was doing modified yoga and Pilates exercise daily. Functional Limitations- Mobility/Gait Ambs with SPC, 1.25 miles with cane with spouse assist with inclines and declines. Personal Factors Other Personal Factors That May Effect Pt lives with spouse and son Therapy/Recovery who is a high functioning adult with autism, osteoporosis, intracranial meningioma. PT-OP-C Subjective Start: 03/18/22 12:11 Freq: Status: Active Protocol: Document 05/22/22 10:40 LRN (Rec: 05/22/22 11:26 LRN [id number]) OP-PT Subjective Patient Comments Patient Comments Walked on trampled grass by self for 10' and grass/gravel w/spouse giving CGA with 1-2x Odalys. Visual distraction is not so bad. Can now look around while walking sometimes . Spouse walks ahead of her on [place] except 2/4x inclines/declines PT-OP-D Balance Start: 03/18/22 12:11 Freq: Status: Active Protocol: Document 03/21/22 13:02 LRN (Rec: 03/21/22 17:11 LRN [id number]) [place] Balance Assessment Evaluation Sitting to Standing Ability Independent w/out Hands Unsupported Stance Safely- 2 minutes Sitting Unsupported, Feet on Floor Safely- 2 minutes Standing to Sitting Ability Safely, Minimal Hand Use Transfer Ability Safely, Minimal Hand Use Unsupported Stance- Eyes Closed Safely, 10 seconds Unsupported Stance- Eyes Open Independent, 1 minute Reaching Forward Standing Safely, 5 inches Pick- Up Object From Floor Independent/Safe Look Behind Shoulder - Standing Shifts Weight Well Turning 360 Degrees Turns slowly, but safely Unsupported Stance, Alternating Feet on (I)- 8 Steps in > 20 secs Stair Unsupported Tandem Stance Balance Lost- Step/Stand Unilateral Leg Stance Unable,assist to not fall Total Score R[place]ford Total Score (out of 56 points) 44 [place] Impairment Rating 20 to 39% Impaired (Score 34- 44) PT-OP-E Functional Tests Start: 03/18/22 12:11 Freq: Status: Active Protocol: Document 05/08/22 13:09 LRN (Rec: 05/08/22 15:43 LRN [id number]) Functional Tests Five Times Sit to Stand Test Score 17 secs Comments Previous on 03/18/22: 19 secs. Timed Up and Go (TUG) Score 23 secs Comments Previous 27 secs TUG Impairment Rating 100% Impaired (Score 20) PT-OP-G Mobility & Gait Start: 03/18/22 12:11 Freq: Status: Active Protocol: Document 03/18/22 13:51 LRN (Rec: 03/18/22 14:42 LRN [id number]) OP Mobility Evaluation Transfers Sit to Stand Stand to sit sometime uncontrolled. Stands greater on LLE. OP Gait Assessment Gait Gait Assistance Required: Standby Assistance Able to Maintain Weight Bearing Status Yes During Gait Assistive Devices Assistive Device Gait Belt,Straight Cane Orthotic/Prosthetic Devices or Brace: No Gait Deviations General Gait Pattern Decreased Stride Length,Flexed Trunk,Lateral Trunk Lean,Wide Based Gait Factors Limiting Gait Function Factors Limiting Gait Function Abnormal Tonal Influences, Decreased Strength,Limited Range of Motion,Poor Balance Comments Gait Comments Circumducts R LE, R drop foot, holds trunk in R rot, R arm held in flexion contracture. PT-OP-H Neuro Start: 03/18/22 12:11 Freq: Status: Active Protocol: Document 03/18/22 13:51 LRN (Rec: 03/18/22 14:42 LRN [id number]) Sensation Evaluation Gross Sensation Gross Sensation WNL PT-OP-J Posture/Palpation/Skin Start: 03/18/22 12:11 Freq: Status: Active Protocol: Document 03/18/22 13:51 LRN (Rec: 03/18/22 14:42 LRN [id number]) Posture Evaluation Position Standing Head/C-Spine Posture Forward Head T-Spine Posture Rotation Right Shoulder Posture (L) Elevated Knee Posture (R) Genu Recurvatum Comments Posture Comments R handed. PT-OP-M Strength Start: 03/18/22 12:11 Freq: Status: Active Protocol: Document 05/22/22 10:40 LRN (Rec: 05/22/22 11:26 LRN [id number]) Knee Strength Knee Manual Muscle Testing Right Flexion (S2) 3- Fair- Extension (L3) 4+ Good+ Comments MMT via break test method. Functionally pt has difficulty controlling knee from hyperextending R knee. Left Comments Generally 5/5 PT-OP-Q Treatments Start: 03/18/22 12:11 Freq: Status: Active Protocol: Document 05/22/22 10:40 LRN (Rec: 05/22/22 11:26 LRN [id number]) Therapeutic Exercises Sitting Exercises Knee ext Sitting Exercise Name Knee Ext Side right Equipment Used Lev 1 Reps/Minutes 2' Comments Extra time required to determine max tolerated resistance. Knee flex Sitting Exercise Name knee flex Side right Equipment Used Lev 1 Reps/Minutes 3' Comments Extra time to determine max tolerated resistance for ex Gait Training Gait Activity Review Gt Activity at home Description Reviewed pt's notes on her gait activity at home. Device Used SPC & spouse Level of Assistance Independent except CGA on mild inclines/declines R Knee control Description Lifting R knee in strgt plane & limiting knee hyerext & circumduction. Device Used SPC Level of Assistance Moderate cuing to R knee and CGA Surface Level Distance/Duration 30' Treatment Focus R knee control to prevent hyperextension, ankle DF Comments verbal and physical cuing to keep R knee from hyper extending. (initial assess on 03/18/22: Gait speed: 20'/15 secs = 1.33 ft/sec.) (2nd assess on 05/08/22: Gt speed 20/14 secs = 1.42 ft/sec ). (3rd assess on 05/22/22: Gt speed 20'/12 secs = 1.67 ft/ sec). Self-Care/Home Management Treatment Education Patient Education Home Exercise Program Other Education Educated in need for GB with extensive discussion of how her spouse can use the belt for safety of gait. Activities Self-Care/Home Management Activities Issued & reviewed HEP: R knee TB (lev 1) strengthening ex for sitting flex/ext. PT-OP-T Assessment and Plan Start: 03/18/22 12:11 Freq: Status: Active Protocol: Document 05/22/22 10:40 LRN (Rec: 05/22/22 11:26 LRN [id number]) Physical Therapy Assessment Rehab Potential Rehabilitation Potential Good Evaluation Complexity Number of Personal Factors/Comorbidities 3 or More Number of Body Systems Impaired 4 or More Clinical Presentation at Evaluation Evolving Impairments Impairments Activity Tolerance,Balance, Gait,Posture,ROM,Strength,Tone ,Transfers Goals Four Impairment Decreased standing dynamic balance. Impairment Pt requires railing UE support to step over objects. 03/21/22: [place] Balance Score is 44 (>35 is safe amb w/ assistive device, >45 is safe w/o assist device) Short Term Goal (STG) Pt will be able to walk on different surfaces safely ( grass, soft sand or gravel to mimic cobblestones) with CGA> SBA. 05/08/22: Walked on hard sand with spouse giving CGA. 05/22/22: Pt needs guarding and assist every ~10 steps, used to be every step. Walked on trampled grass by self for 10' and grass/gravel w/spouse giving CGA with 1-2x Odalys. STG Duration 07/21/21 progressing 05/22/22. Medical Chief Technician Goal (LTG) Pt will be able to step over 4 doorframe or other objects with use of SPC. LTG Duration 08/07/22 Three Impairment Decreased ability to walk up/ down inclines Impairment Requires arm hold assist when walking on an incline for safety. Short Term Goal (STG) Able to walk up/down a hill with CGA>SBA for safety. 05/08/22: Walking small incline on [place]. 05/22/22: Walking on [place] gentle hills (inclines/ declines) 4x. She can walk by self now. Spouse helps 1x each way, used to be all the time. Able to do inclines/ declines when weather is good and no wet leaves around. STG Duration 07/21/22 Goal partially met 05/22/22. Fdc Goal (LTG) Pt will be able to walk on [place] with SBA and an adaptive device for the RLE ( AFO) as needed. 05/08/22: Pt walking with spouse on [place] with SBA and ankle support. 05/22/22: Pt walking w/spoulse [place] with SBA> independent/cane/ankle support ). LTG Duration 08/07/22 (: MET GOAL). Two Impairment Decreased R LE strength Impairment Hyperextension of R knee with gait. R knee strength: Flex is 2/5, Ext is 4/5 and lacking ECC control with end-range extension. R ankle strength: Generally 1 /5 except ankle DF is 0/5. Short Term Goal (STG) Improve R knee and ankle strength 1/2 grade. 05/22/22: R knee flex 3-/5, Ext 4+/5. STG Duration 04/29/22 (05/22/22: MET GOAL ) Fdc Goal (LTG) Pt will demonstrate improved stability with gait with ability to limit R knee hyperextension during gait. LTG Duration 08/07/22 One Impairment Lacks appropriate self care HEP. Impairment Gait speed: 1.33 ft/sec ( measured over 20' walking span ) Short Term Goal (STG) Pt will be independent and consistent with a self care HEP. 04/03/22: Mini squats & sit<> stand. 04/24/22: Asst'd ankle DF and IV; standing heel raises. 05/22/22: HEP: R knee strengthening ex for sitting flex/ext. STG Duration 04/29/22 progressing 05/22/22 Medical Chief Technician Goal (LTG) Improve gait speed. 05/08/22: Gt speed with cane, ankle support/GB/SBA, 20ft/14 secs = 1.42 ft/sec. 05/22/22: Gt speed w/cane/ ankle support/SBA is 20'/12 secs = 1.67 ft/sec. LTG Duration 08/07/22 progressing 05/22/22 Assessment Summary Assessment Pt demonstrates improved gait speed and overall has shown improved endurance and stablity with gait per 5x Sit To Stand Test, and TUG score. Her walking appears improved per subjective report of her walking the [place] without spouse assist except for inclines/declines. The pt hyperextends her R knee when not concentrating on her gait; therefore the pt would benefit from fitting for an AFO to minimize R knee hyperextension. Physical Therapy Plan Frequency and Duration Frequency of Treatment 2x/Week Duration of treatment (weeks) 12 Plan of Care Start Date 05/22/22 Plan of Care End Date 08/07/22 Therapeutic Interventions Therapeutic Interventions Gait Training,Home Exercise Program,Neuromuscular Re- education,Patient/Caregiver Education,Self-Care/Home Management,Therapeutic Exercises Modalities Cold Pack/Ice Massage,Hot Packs Other Referrals/Consults Referrals/Consults Recommended Fitting for a R AFO to minimize R knee hyperextension . If you agree please send referral fax for R AFO to prevent knee hyperextension that the pt could take to a prosthetic shop to be fit for. Next Visit Focus/Plan Next Note Type Treatment Note Next Visit Plan Assess [place], R LE strength of ankle, and stepping over 4 doorframe. Discuss pt getting R AFO for walking. Continue strengthening of LEs, avoiding increasing R knee hyper ext tone & core & pelvic strengthening Balance/gait ex. POC: L CVA rehab. R knee/ ankle, core & pelvic strengthening and R ankle ROM ex's (EV, cont DF), Balance training for weight shifting and ambulation on incline/decline and uneven surfaces.
--- NOTE | 2022-05-31 10:49 | PT.OTN ---
Current Diagnoses Hyperlipidemia, unspecified (05/30/22) Essential (primary) hypertension (05/30/22) Muscle weakness (generalized) (05/30/22) Other specified disorders of muscle (05/30/22) Unsteadiness on feet (05/30/22) Other abnormalities of gait and mobility (05/30/22) Physical Therapy Treatment Note PT-OP-A Visit Information Start: 03/18/22 12:11 Freq: Status: Active Protocol: Document 05/30/22 14:31 LRN (Rec: 05/30/22 15:19 LRN [id number]) Out-Patient Physical Therapy Visit Information Visit Information Visit Type Treatment Note Visit Note 1 after PN Visit Start Time 14:31 Visit Stop Time 15:10 Total Visit Minutes 39 Visit Number 11 Evaluation Information Evaluation Date 03/18/22 Precautions Precautions Osteoporosis, history of falls , HBP controlled by meds. PT-OP-B Current Condition Start: 03/18/22 12:11 Freq: Status: Active Protocol: Document 03/18/22 13:51 LRN (Rec: 03/18/22 14:42 LRN [id number]) Current Condition History of Current Condition Onset Date A few weeks ago referred for stroke rehab at pt request. L CVA 07/22/18 Current Complaints Hasn't had therapy in a yr. 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 States since stroke she has had therapy for a few months each year. Referred by Dr Jose Mcginnis at [facility], who will no longer be following her because he was a fill in physician. Has follow up visit with a physician in June 2022, who will be her primary care physician. Pt reports her walking is still unsteady and her R hand is useless. Pt will be receiving PT & OT. States hamstrings are begining to improve, feeling in her feet is improving, and the inner R ankle ms are getting stronger, so she is not rolling her R ankle any more. Pt complains she doesn't have big toes to help her balance because they curl in. If she steps on something unevenly then it causes her to loose her balance. When walking she looks down at the ground, and if she hears someone behind her, it causes her to tense up and decreases her balance ability because it is very distracting to her. Her balance when statioinary is good, but dynamically is not good. Prior Treatments and Tests See development section below. Developmental History Developmental History She continues to make progress and feels therapy seems to help. Stoke in 07/22/2018 in [place]. Was in intensive care a few days, hospital a week and rehab inpt for 1 month. Home health the following month and outpatient OT/PT from September-Feb 2019. Started therapy again 06/2019 to 10/2019. Fall 08/03/19 with concusion. In 2020 had outpt PT 07/12 to 11/09. Treatment Goals Patient/Caregiver Goals Pt goals: Able to walk up/down hill. Currently she needs to hand onto someone if she is on a incline. Wants to walk on [place] without help. Wants to walk on different surfaces safely (grass, soft sand or gravel, cobblestones). Improve gait stability and speed. Able to step over 4 doorframe or other objects. Prior Functional Status Baseline Function- ADL's Independent Baseline Function- Mobility Independent Baseline Function- Work/School Homemaker. Current Functional Impairments (Reported) Functional Limitations- ADL's Past 2 months walks 1.25 miles 6 days/week. Other exercise is housework. Before walking on trails was doing modified yoga and Pilates exercise daily. Functional Limitations- Mobility/Gait Ambs with SPC, 1.25 miles with cane with spouse assist with inclines and declines. Personal Factors Other Personal Factors That May Effect Pt lives with spouse and son Therapy/Recovery who is a high functioning adult with autism, osteoporosis, intracranial meningioma. PT-OP-C Subjective Start: 03/18/22 12:11 Freq: Status: Active Protocol: Document 05/30/22 14:31 LRN (Rec: 05/30/22 15:19 LRN [id number]) OP-PT Subjective Patient Comments Patient Comments States she has had R knee pain (lateral side of patella at angle and behind knee) with new knee ex's. PT-OP-D Balance Start: 03/18/22 12:11 Freq: Status: Active Protocol: Document 03/21/22 13:02 LRN (Rec: 03/21/22 17:11 LRN [id number]) [place] Balance Assessment Evaluation Sitting to Standing Ability Independent w/out Hands Unsupported Stance Safely- 2 minutes Sitting Unsupported, Feet on Floor Safely- 2 minutes Standing to Sitting Ability Safely, Minimal Hand Use Transfer Ability Safely, Minimal Hand Use Unsupported Stance- Eyes Closed Safely, 10 seconds Unsupported Stance- Eyes Open Independent, 1 minute Reaching Forward Standing Safely, 5 inches Pick- Up Object From Floor Independent/Safe Look Behind Shoulder - Standing Shifts Weight Well Turning 360 Degrees Turns slowly, but safely Unsupported Stance, Alternating Feet on (I)- 8 Steps in > 20 secs Stair Unsupported Tandem Stance Balance Lost- Step/Stand Unilateral Leg Stance Unable,assist to not fall Total Score [place] Total Score (out of 56 points) 44 [place] Impairment Rating 20 to 39% Impaired (Score 34- 44) PT-OP-E Functional Tests Start: 03/18/22 12:11 Freq: Status: Active Protocol: Document 05/08/22 13:09 LRN (Rec: 05/08/22 15:43 LRN [id number]) Functional Tests Five Times Sit to Stand Test Score 17 secs Comments Previous on 03/18/22: 19 secs. Timed Up and Go (TUG) Score 23 secs Comments Previous 27 secs TUG Impairment Rating 100% Impaired (Score 20) PT-OP-G Mobility & Gait Start: 03/18/22 12:11 Freq: Status: Active Protocol: Document 03/18/22 13:51 LRN (Rec: 03/18/22 14:42 LRN [id number]) OP Mobility Evaluation Transfers Sit to Stand Stand to sit sometime uncontrolled. Stands greater on LLE. OP Gait Assessment Gait Gait Assistance Required: Standby Assistance Able to Maintain Weight Bearing Status Yes During Gait Assistive Devices Assistive Device Gait Belt,Straight Cane Orthotic/Prosthetic Devices or Brace: No Gait Deviations General Gait Pattern Decreased Stride Length,Flexed Trunk,Lateral Trunk Lean,Wide Based Gait Factors Limiting Gait Function Factors Limiting Gait Function Abnormal Tonal Influences, Decreased Strength,Limited Range of Motion,Poor Balance Comments Gait Comments Circumducts R LE, R drop foot, holds trunk in R rot, R arm held in flexion contracture. PT-OP-H Neuro Start: 03/18/22 12:11 Freq: Status: Active Protocol: Document 03/18/22 13:51 LRN (Rec: 03/18/22 14:42 LRN [id number]) Sensation Evaluation Gross Sensation Gross Sensation WNL PT-OP-J Posture/Palpation/Skin Start: 03/18/22 12:11 Freq: Status: Active Protocol: Document 03/18/22 13:51 LRN (Rec: 03/18/22 14:42 LRN [id number]) Posture Evaluation Position Standing Head/C-Spine Posture Forward Head T-Spine Posture Rotation Right Shoulder Posture (L) Elevated Knee Posture (R) Genu Recurvatum Comments Posture Comments R handed. PT-OP-M Strength Start: 03/18/22 12:11 Freq: Status: Active Protocol: Document 05/30/22 14:31 LRN (Rec: 05/30/22 15:19 LRN [id number]) Ankle/Foot Strength Ankle and Foot Manual Muscle Testing Right Dorsiflexion (L4) 0 Zero Plantarflexion (S1) 2- Poor- Inversion 1 Trace Eversion (S1) 1 Trace Left Comments Generally 5/5 PT-OP-Q Treatments Start: 03/18/22 12:11 Freq: Status: Active Protocol: Document 05/30/22 14:31 LRN (Rec: 05/30/22 15:19 LRN [id number]) Therapeutic Exercises Sitting Exercises Assisted knee flex Sitting Exercise Name Sliding heel backwards Equipment Used 4 wheeled sitting roller board Reps/Minutes 5' Knee ext Sitting Exercise Name Knee Ext - w/o resistance Side right Reps/Minutes 3' Comments Extra time required to determine max tolerated resistance. Knee flex Sitting Exercise Name knee flex - TB resisting and assisting Side right Equipment Used Lev 1 assisting to keep R heel from AB Reps/Minutes 21' Active asst'd R ankle EV Sitting Exercise Name Assisted active ankle EV Side right Reps/Minutes 8' Active assisted R ankle DF Sitting Exercise Name Active ankle DF Side right Reps/Minutes 2' PT-OP-T Assessment and Plan Start: 03/18/22 12:11 Freq: Status: Active Protocol: Document 05/30/22 14:31 LRN (Rec: 05/30/22 15:19 LRN [id number]) Physical Therapy Assessment Goals Four Impairment Decreased standing dynamic balance. Impairment Pt requires railing UE support to step over objects. 03/21/22: [place]ORD Balance Score is 44 (>35 is safe amb w/ assistive device, >45 is safe w/o assist device) Short Term Goal (STG) Pt will be able to walk on different surfaces safely ( grass, soft sand or gravel to mimic cobblestones) with CGA> SBA. 05/08/22: Walked on hard sand with spouse giving CGA. 05/22/22: Pt needs guarding and assist every ~10 steps, used to be every step. Walked on trampled grass by self for 10' and grass/gravel w/spouse giving CGA with 1-2x [place]. STG Duration 07/21/21 progressing 05/22/22. Caustic Plant Worker Goal (LTG) Pt will be able to step over 4 doorframe or other objects with use of SPC. LTG Duration 08/07/22 Three Impairment Decreased ability to walk up/ down inclines Impairment Requires arm hold assist when walking on an incline for safety. Short Term Goal (STG) Able to walk up/down a hill with CGA>SBA for safety. 05/08/22: Walking small incline on [place]. 05/22/22: Walking on [place] gentle hills (inclines/ declines) 4x. She can walk by self now. Spouse helps 1x each way, used to be all the time. Able to do inclines/ declines when weather is good and no wet leaves around. STG Duration 07/21/22 Goal partially met 05/22/22. Detention Goal (LTG) Pt will be able to walk on [place] with SBA and an adaptive device for the RLE ( AFO) as needed. 05/08/22: Pt walking with spouse on [place] with SBA and ankle support. 05/22/22: Pt walking w/spoulse [place] with SBA> independent/cane/ankle support ). LTG Duration 08/07/22 (: MET GOAL). Two Impairment Decreased R LE strength Impairment Hyperextension of R knee with gait. R knee strength: Flex is 2/5, Ext is 4/5 and lacking ECC control with end-range extension. R ankle strength: Generally 1 /5 except ankle DF is 0/5. Short Term Goal (STG) Improve R knee and ankle strength 1/2 grade. 05/22/22: R knee flex 3-/5, Ext 4+/5. STG Duration 04/29/22 (05/22/22: MET GOAL ) Detention Goal (LTG) Pt will demonstrate improved stability with gait with ability to limit R knee hyperextension during gait. LTG Duration 08/07/22 One Impairment Lacks appropriate self care HEP. Impairment Gait speed: 1.33 ft/sec ( measured over 20' walking span ) Short Term Goal (STG) Pt will be independent and consistent with a self care HEP. 04/03/22: Mini squats & sit<> stand. 04/24/22: Asst'd ankle DF and IV; standing heel raises. 05/22/22: HEP: R knee strengthening ex for sitting flex/ext. STG Duration 04/29/22 progressing 05/22/22 Detention Goal (LTG) Improve gait speed. 05/08/22: Gt speed with cane, ankle support/GB/SBA, 20ft/14 secs = 1.42 ft/sec. 05/22/22: Gt speed w/cane/ ankle support/SBA is 20'/12 secs = 1.67 ft/sec. LTG Duration 08/07/22 progressing 05/22/22 Assessment Summary Assessment Pt R knee pain from poor mechanics of movement with knee flex (tone causing IR at knee jt). Pt did not have pain at the knee when R heel assisted to keep in neutral. Onset R lateral lower leg pain at knee joint due to strain of anterior tibialis with ankle EV strengthening. Very weak with R knee flexion. R ankle strength is PF 2-/5, DF 0/5, otherwise 1/5. Only improvement is with PF which appears tone related. Physical Therapy Plan Frequency and Duration Frequency of Treatment 2x/Week Duration of treatment (weeks) 12 Plan of Care Start Date 05/22/22 Plan of Care End Date 08/07/22 Next Visit Focus/Plan Next Note Type Treatment Note Next Visit Plan Assess [place]ORD and stepping over 4 doorframe. Assess pn response to change of knee flex ex, Discuss pt getting R AFO for walking. POC: L CVA rehab. R knee/ankle (avoiding increasing R knee hyper ext tone) & core & pelvic strengthening, and ROM R ankle ex's (EV, cont DF), Balance training for weight shifting and ambulation on incline/decline and uneven surfaces. Balance/gait ex.
--- NOTE | 2022-06-06 17:15 | PT.OTN ---
Current Diagnoses Hyperlipidemia, unspecified (06/06/22) Essential (primary) hypertension (06/06/22) Muscle weakness (generalized) (06/06/22) Other specified disorders of muscle (06/06/22) Unsteadiness on feet (06/06/22) Other abnormalities of gait and mobility (06/06/22) Physical Therapy Treatment Note PT-OP-A Visit Information Start: 03/18/22 12:11 Freq: Status: Active Protocol: Document 06/06/22 14:37 LRN (Rec: 06/06/22 17:14 LRN [id number]) Out-Patient Physical Therapy Visit Information Visit Information Visit Type Treatment Note Visit Note 2 after PN Visit Start Time 14:37 Visit Stop Time 15:15 Total Visit Minutes 38 Visit Number 12 Evaluation Information Evaluation Date 03/18/22 Precautions Precautions Osteoporosis, history of falls , HBP controlled by meds. PT-OP-B Current Condition Start: 03/18/22 12:11 Freq: Status: Active Protocol: Document 03/18/22 13:51 LRN (Rec: 03/18/22 14:42 LRN [id number]) Current Condition History of Current Condition Onset Date A few weeks ago referred for stroke rehab at pt request. L CVA 07/22/18 Current Complaints Hasn't had therapy in a yr. 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 States since stroke she has had therapy for a few months each year. Referred by Dr Jose Mcginnis at [facility], who will no longer be following her because he was a fill in physician. Has follow up visit with a physician in June 2022, who will be her primary care physician. Pt reports her walking is still unsteady and her R hand is useless. Pt will be receiving PT & OT. States hamstrings are begining to improve, feeling in her feet is improving, and the inner R ankle ms are getting stronger, so she is not rolling her R ankle any more. Pt complains she doesn't have big toes to help her balance because they curl in. If she steps on something unevenly then it causes her to loose her balance. When walking she looks down at the ground, and if she hears someone behind her, it causes her to tense up and decreases her balance ability because it is very distracting to her. Her balance when statioinary is good, but dynamically is not good. Prior Treatments and Tests See development section below. Developmental History Developmental History She continues to make progress and feels therapy seems to help. Stoke in 07/22/2018 in [place]. Was in intensive care a few days, hospital a week and rehab inpt for 1 month. Home health the following month and outpatient OT/PT from September-Feb 2019. Started therapy again 06/2019 to 10/2019. Fall 08/03/19 with concusion. In 2020 had outpt PT 07/12 to 11/09. Treatment Goals Patient/Caregiver Goals Pt goals: Able to walk up/down hill. Currently she needs to hand onto someone if she is on a incline. Wants to walk [place] without help. Wants to walk on different surfaces safely (grass, soft sand or gravel, cobblestones). Improve gait stability and speed. Able to step over 4 doorframe or other objects. Prior Functional Status Baseline Function- ADL's Independent Baseline Function- Mobility Independent Baseline Function- Work/School Homemaker. Current Functional Impairments (Reported) Functional Limitations- ADL's Past 2 months walks 1.25 miles 6 days/week. Other exercise is housework. Before walking on trails was doing modified yoga and Pilates exercise daily. Functional Limitations- Mobility/Gait Ambs with SPC, 1.25 miles with cane with spouse assist with inclines and declines. Personal Factors Other Personal Factors That May Effect Pt lives with spouse and son Therapy/Recovery who is a high functioning adult with autism, osteoporosis, intracranial meningioma. PT-OP-C Subjective Start: 03/18/22 12:11 Freq: Status: Active Protocol: Document 06/06/22 14:37 LRN (Rec: 06/06/22 17:14 LRN [id number]) OP-PT Subjective Patient Comments Patient Comments No soreness this week. She reports more sensation in her instep. Feels she can walk with her feet in more normal distance apart vs her normal of being bull-legged. States having occasional heel strikes with gait. PT-OP-D Balance Start: 03/18/22 12:11 Freq: Status: Active Protocol: Document 06/06/22 14:37 LRN (Rec: 12/16/22 17:14 LRN [id number]) [place]ford Balance Assessment Evaluation Sitting to Standing Ability Independent w/out Hands Unsupported Stance Safely- 2 minutes Sitting Unsupported, Feet on Floor Safely- 2 minutes Standing to Sitting Ability Safely, Minimal Hand Use Transfer Ability Safely, Minimal Hand Use Unsupported Stance- Eyes Closed Safely, 10 seconds Unsupported Stance- Eyes Open Independent, 1 minute Reaching Forward Standing Confidently, 10 inches Pick- Up Object From Floor Independent/Safe Look Behind Shoulder - Standing Shifts Weight Well Turning 360 Degrees Turns slowly, but safely Unsupported Stance, Alternating Feet on (I)- 8 Steps in 20 secs Stair Unsupported Tandem Stance Balance Lost- Step/Stand Unilateral Leg Stance Unable,assist to not fall Total Score Rutherford Total Score (out of 56 points) 46 R[place]ford Impairment Rating 1 to 19% Impaired (Score 45-55 ) PT-OP-E Functional Tests Start: 03/18/22 12:11 Freq: Status: Active Protocol: Document 05/08/22 13:09 LRN (Rec: 05/08/22 15:43 LRN [id number]) Functional Tests Five Times Sit to Stand Test Score 17 secs Comments Previous on 03/18/22: 19 secs. Timed Up and Go (TUG) Score 23 secs Comments Previous 27 secs TUG Impairment Rating 100% Impaired (Score 20) PT-OP-G Mobility & Gait Start: 03/18/22 12:11 Freq: Status: Active Protocol: Document 03/18/22 13:51 LRN (Rec: 03/18/22 14:42 LRN [id number]) OP Mobility Evaluation Transfers Sit to Stand Stand to sit sometime uncontrolled. Stands greater on LLE. OP Gait Assessment Gait Gait Assistance Required: Standby Assistance Able to Maintain Weight Bearing Status Yes During Gait Assistive Devices Assistive Device Gait Belt,Straight Cane Orthotic/Prosthetic Devices or Brace: No Gait Deviations General Gait Pattern Decreased Stride Length,Flexed Trunk,Lateral Trunk Lean,Wide Based Gait Factors Limiting Gait Function Factors Limiting Gait Function Abnormal Tonal Influences, Decreased Strength,Limited Range of Motion,Poor Balance Comments Gait Comments Circumducts R LE, R drop foot, holds trunk in R rot, R arm held in flexion contracture. PT-OP-H Neuro Start: 03/18/22 12:11 Freq: Status: Active Protocol: Document 03/18/22 13:51 LRN (Rec: 03/18/22 14:42 LRN [id number]) Sensation Evaluation Gross Sensation Gross Sensation WNL PT-OP-J Posture/Palpation/Skin Start: 03/18/22 12:11 Freq: Status: Active Protocol: Document 03/18/22 13:51 LRN (Rec: 03/18/22 14:42 LRN [id number]) Posture Evaluation Position Standing Head/C-Spine Posture Forward Head T-Spine Posture Rotation Right Shoulder Posture (L) Elevated Knee Posture (R) Genu Recurvatum Comments Posture Comments R handed. PT-OP-M Strength Start: 03/18/22 12:11 Freq: Status: Active Protocol: Document 05/30/22 14:31 LRN (Rec: 05/30/22 15:19 LRN [id number]) Ankle/Foot Strength Ankle and Foot Manual Muscle Testing Right Dorsiflexion (L4) 0 Zero Plantarflexion (S1) 2- Poor- Inversion 1 Trace Eversion (S1) 1 Trace Left Comments Generally 5/5 PT-OP-Q Treatments Start: 03/18/22 12:11 Freq: Status: Active Protocol: Document 06/06/22 14:37 LRN (Rec: 06/06/22 17:14 LRN [id number]) Therapeutic Exercises Standing Exercises Steppin over 4 object pad Standing Exercise Name Stepping over 4 & 5 objects Side bilateral Equipment Used GB, CGA, SPC Reps/Minutes 2x each foot w/each object Comments Stepping over 4 gr rectangle and 5 balance beam Weight shifting Standing Exercise Name Wgt shifting & WS leg lift- motor control training Side bilateral Equipment Used railing Reps/Minutes 13' Comments Phys cuing for WBing through RLE soft knee Neuro Re-Education Treatment Balance Activities Tandem Stance Details Tandem Stance Surface Level Equipment GB/Odalys Comments Pt needed help in achieving tandem stance. 0 secs with R foot behind, 1 minute with L foot behind when placed and balanced to start. SLS Details SLS Reps/Duration 1x attempt on L LE Comments Pt did not feel safe to try on RLE, LLE unable to balance holding RLE up. Alternate foot on step Details Alternate foot up on step Surface 6 step Reps/Duration 8 steps x 2 Comments Pt able to perform in 20 secs and 21 secs respectively, with rest between bouts. Turning 360 deg's Details Turning 360 deg's Reps/Duration 1x each direction Comments Pt took 8+ secs to turn bilaterally. Standing Reach Details Standing Reach Reps/Duration 2x on L side Comments Extra time taken to for pt positioning and balance to perform. Pt able to reach 11 inches with LUE only. Standing Picking up object Details Standing Picking up object Reps/Duration 1x Comments Pt able to pickle solution maker ball independently, tends to stand on LLE>RLE. Standing Looking behind Details Standing Looking behind Reps/Duration 1 x bilaterally Comments Extra time taken for positioning pt. Pt able to perform without difficulty Standing feet together Details Standing feet together, L hand over chest Reps/Duration 2' Comments No difficulty Transferring Details Chair<> Plinth Reps/Duration x 4 Comments Pt able to perform safely. Standing unsupported Details Standing unsupported EO & EC Reps/Duration 1' EO, 2' EO, 10 EC Comments Extra time for postioning into stance of safety. PT-OP-T Assessment and Plan Start: 03/18/22 12:11 Freq: Status: Active Protocol: Document 06/06/22 14:37 LRN (Rec: 06/06/22 17:14 LRN [id number]) Physical Therapy Assessment Goals Four Impairment Decreased standing dynamic balance. Impairment Pt requires railing UE support to step over objects. 03/21/22: RUTHERFORD Balance Score is 44 (>35 is safe amb w/ assistive device, >45 is safe w/o assist device) Short Term Goal (STG) Pt will be able to walk on different surfaces safely ( grass, soft sand or gravel to mimic cobblestones) with CGA> SBA. 05/08/22: Walked on hard sand with spouse giving CGA. 05/22/22: Pt needs guarding and assist every ~10 steps, used to be every step. Walked on trampled grass by self for 10' and grass/gravel w/spouse giving CGA with 1-2x Od[place]. 06/06/22: RUTHERFORD Balance Score is 46, safe amb w/o assist device. Pt demonstrating gait consistent with L CVA ( weakness and tone on RLE). STG Duration 07/21/21 progressing 05/22/22. Tower Control Operator Goal (LTG) Pt will be able to step over 4 doorframe or other objects with use of SPC. 06/06/22: Pt able to step over 4 and 5 objects ( doorframe like) with use of SPC safely. LTG Duration 08/07/22 (06/06/22: MET GOAL) Three Impairment Decreased ability to walk up/ down inclines Impairment Requires arm hold assist when walking on an incline for safety. Short Term Goal (STG) Able to walk up/down a hill with CGA>SBA for safety. 05/08/22: Walking small incline on [place]. 05/22/22: Walking on [place] gentle hills (inclines/ declines) 4x. She can walk by self now. Spouse helps 1x each way, used to be all the time. Able to do inclines/ declines when weather is good and no wet leaves around. STG Duration 07/21/22 Goal partially met 05/22/22. Jail Goal (LTG) Pt will be able to walk on [place] with SBA and an adaptive device for the RLE ( AFO) as needed. 05/08/22: Pt walking with spouse on [place] with SBA and ankle support. 05/22/22: Pt walking w/spoulse [place] with SBA> independent/cane/ankle support ). LTG Duration 08/07/22 (: MET GOAL). Two Impairment Decreased R LE strength Impairment Hyperextension of R knee with gait. R knee strength: Flex is 2/5, Ext is 4/5 and lacking ECC control with end-range extension. R ankle strength: Generally 1 /5 except ankle DF is 0/5. Short Term Goal (STG) Improve R knee and ankle strength 1/2 grade. 05/22/22: R knee flex 3-/5, Ext 4+/5. STG Duration 04/29/22 (05/22/22: MET GOAL ) Jail Goal (LTG) Pt will demonstrate improved stability with gait with ability to limit R knee hyperextension during gait. LTG Duration 08/07/22 One Impairment Lacks appropriate self care HEP. Impairment Gait speed: 1.33 ft/sec ( measured over 20' walking span ) Short Term Goal (STG) Pt will be independent and consistent with a self care HEP. 04/03/22: Mini squats & sit<> stand. 04/24/22: Asst'd ankle DF and IV; standing heel raises. 05/22/22: HEP: R knee strengthening ex for sitting flex/ext. STG Duration 04/29/22 progressing 05/22/22 Jail Goal (LTG) Improve gait speed. 05/08/22: Gt speed with cane, ankle support/GB/SBA, 20ft/14 secs = 1.42 ft/sec. 05/22/22: Gt speed w/cane/ ankle support/SBA is 20'/12 secs = 1.67 ft/sec. LTG Duration 08/07/22 progressing 05/22/22 Assessment Summary Assessment Pt shows improved balance per RUTHERFORD balance score of 46 (1-19 % impaired) compared to initial assessment of 44 (20- 39% impaired). Pt noting increased feeling in her feet and ability to perform occasional R heel strike with gait. Pt not complaining of R knee pain today from proximal anterior tib because of increased from tone/pain with knee flexion strengthening. Physical Therapy Plan Frequency and Duration Frequency of Treatment 2x/Week Duration of treatment (weeks) 12 Plan of Care Start Date 05/22/22 Plan of Care End Date 08/07/22 Next Visit Focus/Plan Next Note Type Treatment Note Next Visit Plan Discuss pt getting R AFO for walking. POC: L CVA rehab. R knee/ankle (avoiding increasing R knee hyper ext tone) & core & pelvic strengthening, and ROM R ankle ex's (EV, cont DF), Balance training for weight shifting and ambulation on incline/decline and uneven surfaces. Balance/gait ex.
--- NOTE | 2022-06-10 14:48 | PT.OTN ---
Current Diagnoses Hyperlipidemia, unspecified (06/10/22) Essential (primary) hypertension (06/10/22) Muscle weakness (generalized) (06/10/22) Other specified disorders of muscle (06/10/22) Unsteadiness on feet (06/10/22) Other abnormalities of gait and mobility (06/10/22) Physical Therapy Treatment Note PT-OP-A Visit Information Start: 03/18/22 12:11 Freq: Status: Active Protocol: Document 06/10/22 13:45 LRN (Rec: 06/10/22 14:46 LRN [id number]) Out-Patient Physical Therapy Visit Information Visit Information Visit Type Treatment Note Visit Note 3 after PN Visit Start Time 13:45 Visit Stop Time 14:29 Total Visit Minutes 44 Visit Number 13 Evaluation Information Evaluation Date 03/18/22 Precautions Precautions Osteoporosis, history of falls , HBP controlled by meds. PT-OP-B Current Condition Start: 03/18/22 12:11 Freq: Status: Active Protocol: Document 03/18/22 13:51 LRN (Rec: 03/18/22 14:42 LRN [id number]) Current Condition History of Current Condition Onset Date A few weeks ago referred for stroke rehab at pt request. L CVA 07/22/18 Current Complaints Hasn't had therapy in a yr. 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 States since stroke she has had therapy for a few months each year. Referred by Dr Jose Mcginnis at [facility], who will no longer be following her because he was a fill in physician. Has follow up visit with a physician in June 2022, who will be her primary care physician. Pt reports her walking is still unsteady and her R hand is useless. Pt will be receiving PT & OT. States hamstrings are begining to improve, feeling in her feet is improving, and the inner R ankle ms are getting stronger, so she is not rolling her R ankle any more. Pt complains she doesn't have big toes to help her balance because they curl in. If she steps on something unevenly then it causes her to loose her balance. When walking she looks down at the ground, and if she hears someone behind her, it causes her to tense up and decreases her balance ability because it is very distracting to her. Her balance when statioinary is good, but dynamically is not good. Prior Treatments and Tests See development section below. Developmental History Developmental History She continues to make progress and feels therapy seems to help. Stoke in 07/22/2018 in [place]. Was in intensive care a few days, hospital a week and rehab inpt for 1 month. Home health the following month and outpatient OT/PT from September-Feb 2019. Started therapy again 06/2019 to 10/2019. Fall 08/03/19 with concusion. In 2020 had outpt PT 07/12 to 11/09. Treatment Goals Patient/Caregiver Goals Pt goals: Able to walk up/down hill. Currently she needs to hand onto someone if she is on a incline. Wants to walk on [place] without help. Wants to walk on different surfaces safely (grass, soft sand or gravel, cobblestones). Improve gait stability and speed. Able to step over 4 doorframe or other objects. Prior Functional Status Baseline Function- ADL's Independent Baseline Function- Mobility Independent Baseline Function- Work/School Homemaker. Current Functional Impairments (Reported) Functional Limitations- ADL's Past 2 months walks 1.25 miles 6 days/week. Other exercise is housework. Before walking on trails was doing modified yoga and Pilates exercise daily. Functional Limitations- Mobility/Gait Ambs with SPC, 1.25 miles with cane with spouse assist with inclines and declines. Personal Factors Other Personal Factors That May Effect Pt lives with spouse and son Therapy/Recovery who is a high functioning adult with autism, osteoporosis, intracranial meningioma. PT-OP-C Subjective Start: 03/18/22 12:11 Freq: Status: Active Protocol: Document 06/10/22 13:45 LRN (Rec: 06/10/22 14:46 LRN [id number]) OP-PT Subjective Patient Comments Patient Comments Would like to know what to do while on holiday break. PT-OP-D Balance Start: 03/18/22 12:11 Freq: Status: Active Protocol: Document 06/06/22 14:37 LRN (Rec: 06/06/22 17:14 LRN [id number]) R[place]ford Balance Assessment Evaluation Sitting to Standing Ability Independent w/out Hands Unsupported Stance Safely- 2 minutes Sitting Unsupported, Feet on Floor Safely- 2 minutes Standing to Sitting Ability Safely, Minimal Hand Use Transfer Ability Safely, Minimal Hand Use Unsupported Stance- Eyes Closed Safely, 10 seconds Unsupported Stance- Eyes Open Independent, 1 minute Reaching Forward Standing Confidently, 10 inches Pick- Up Object From Floor Independent/Safe Look Behind Shoulder - Standing Shifts Weight Well Turning 360 Degrees Turns slowly, but safely Unsupported Stance, Alternating Feet on (I)- 8 Steps in 20 secs Stair Unsupported Tandem Stance Balance Lost- Step/Stand Unilateral Leg Stance Unable,assist to not fall Total Score Rutherford Total Score (out of 56 points) 46 Rutherford Impairment Rating 1 to 19% Impaired (Score 45-55 ) PT-OP-E Functional Tests Start: 03/18/22 12:11 Freq: Status: Active Protocol: Document 05/08/22 13:09 LRN (Rec: 05/08/22 15:43 LRN [id number]) Functional Tests Five Times Sit to Stand Test Score 17 secs Comments Previous on 03/18/22: 19 secs. Timed Up and Go (TUG) Score 23 secs Comments Previous 27 secs TUG Impairment Rating 100% Impaired (Score 20) PT-OP-G Mobility & Gait Start: 03/18/22 12:11 Freq: Status: Active Protocol: Document 03/18/22 13:51 LRN (Rec: 03/18/22 14:42 LRN [id number]) OP Mobility Evaluation Transfers Sit to Stand Stand to sit sometime uncontrolled. Stands greater on LLE. OP Gait Assessment Gait Gait Assistance Required: Standby Assistance Able to Maintain Weight Bearing Status Yes During Gait Assistive Devices Assistive Device Gait Belt,Straight Cane Orthotic/Prosthetic Devices or Brace: No Gait Deviations General Gait Pattern Decreased Stride Length,Flexed Trunk,Lateral Trunk Lean,Wide Based Gait Factors Limiting Gait Function Factors Limiting Gait Function Abnormal Tonal Influences, Decreased Strength,Limited Range of Motion,Poor Balance Comments Gait Comments Circumducts R LE, R drop foot, holds trunk in R rot, R arm held in flexion contracture. PT-OP-H Neuro Start: 03/18/22 12:11 Freq: Status: Active Protocol: Document 03/18/22 13:51 LRN (Rec: 03/18/22 14:42 LRN [id number]) Sensation Evaluation Gross Sensation Gross Sensation WNL PT-OP-J Posture/Palpation/Skin Start: 03/18/22 12:11 Freq: Status: Active Protocol: Document 03/18/22 13:51 LRN (Rec: 03/18/22 14:42 LRN [id number]) Posture Evaluation Position Standing Head/C-Spine Posture Forward Head T-Spine Posture Rotation Right Shoulder Posture (L) Elevated Knee Posture (R) Genu Recurvatum Comments Posture Comments R handed. PT-OP-M Strength Start: 03/18/22 12:11 Freq: Status: Active Protocol: Document 05/30/22 14:31 LRN (Rec: 05/30/22 15:19 LRN [id number]) Ankle/Foot Strength Ankle and Foot Manual Muscle Testing Right Dorsiflexion (L4) 0 Zero Plantarflexion (S1) 2- Poor- Inversion 1 Trace Eversion (S1) 1 Trace Left Comments Generally 5/5 PT-OP-Q Treatments Start: 03/18/22 12:11 Freq: Status: Active Protocol: Document 06/10/22 13:45 LRN (Rec: 06/10/22 14:46 LRN [id number]) Therapeutic Exercises Sitting Exercises Isis Knee flex Sitting Exercise Name Isis knee flex Side right Reps/Minutes 10 SH in various knee flex positions with foot in EV and neutral R hip flex august Sitting Exercise Name R hip flex with assisted ankle EV and sometimes hip AD Side right Reps/Minutes 8' Sit<>Stand Sitting Exercise Name Sit<>Stand Side right Equipment Used SPC, no use of UE's to stand Comments 5x STS in different positions of step out of L LE. Gait Training Gait Activity Gait training on TM Description Gait at 0.5mph for R knee control & even step length Device Used TM Level of Assistance MOD assist w/R LE/GB/v cuing to keep up with TM speed Distance/Duration 11' Comments Gait on TM at 2.0 incline. Gait training to & from therapy room for greater R knee control, hip flexion for swing through phase. Self-Care/Home Management Treatment Education Patient Education Home Exercise Program Other Education At pt request, pt educated in improvement in her R[place]ORD Balance score showing functional improvement in balance from 20-39% impairment to 1-19% impairment based on scoring during her last visit. Activities Self-Care/Home Management Activities I/S pt for HEP over holiday: Isis knee flex in various angles with more focus at greatest extension angles, sit hip flexion/AD w/ankle Evereted, and sit<>stands with L LE in front, PT-OP-T Assessment and Plan Start: 03/18/22 12:11 Freq: Status: Active Protocol: Document 06/10/22 13:45 LRN (Rec: 06/10/22 14:46 LRN [id number]) Physical Therapy Assessment Goals Four Impairment Decreased standing dynamic balance. Impairment Pt requires railing UE support to step over objects. 03/21/22: RUTHERFORD Balance Score is 44 (>35 is safe amb w/ assistive device, >45 is safe w/o assist device) Short Term Goal (STG) Pt will be able to walk on different surfaces safely ( grass, soft sand or gravel to mimic cobblestones) with CGA> SBA. 05/08/22: Walked on hard sand with spouse giving CGA. 05/22/22: Pt needs guarding and assist every ~10 steps, used to be every step. Walked on trampled grass by self for 10' and grass/gravel w/spouse giving CGA with 1-2x Od[place]. 06/06/22: RUTHERFORD Balance Score is 46, safe amb w/o assist device. Pt demonstrating gait consistent with L CVA ( weakness and tone on RLE). STG Duration 07/21/21 progressing 05/22/22. Shelter Goal (LTG) Pt will be able to step over 4 doorframe or other objects with use of SPC. 06/06/22: Pt able to step over 4 and 5 objects ( doorframe like) with use of SPC safely. LTG Duration 08/07/22 (06/06/22: MET GOAL) Three Impairment Decreased ability to walk up/ down inclines Impairment Requires arm hold assist when walking on an incline for safety. Short Term Goal (STG) Able to walk up/down a hill with CGA>SBA for safety. 05/08/22: Walking small incline on [place]. 05/22/22: Walking on [place] gentle hills (inclines/ declines) 4x. She can walk by self now. Spouse helps 1x each way, used to be all the time. Able to do inclines/ declines when weather is good and no wet leaves around. STG Duration 07/21/22 Goal partially met 05/22/22. Cokeman Goal (LTG) Pt will be able to walk on [place] with SBA and an adaptive device for the RLE ( AFO) as needed. 05/08/22: Pt walking with spouse on [place] with SBA and ankle support. 05/22/22: Pt walking w/spoulse [place] with SBA> independent/cane/ankle support ). LTG Duration 08/07/22 (: MET GOAL). Two Impairment Decreased R LE strength Impairment Hyperextension of R knee with gait. R knee strength: Flex is 2/5, Ext is 4/5 and lacking ECC control with end-range extension. R ankle strength: Generally 1 /5 except ankle DF is 0/5. Short Term Goal (STG) Improve R knee and ankle strength 1/2 grade. 05/22/22: R knee flex 3-/5, Ext 4+/5. STG Duration 04/29/22 (05/22/22: MET GOAL ) Shelter Goal (LTG) Pt will demonstrate improved stability with gait with ability to limit R knee hyperextension during gait. 06/10/22: Pt needs phys & v cuing to prevent hyper ext of R knee during gait. LTG Duration 08/07/22 One Impairment Lacks appropriate self care HEP. Impairment Gait speed: 1.33 ft/sec ( measured over 20' walking span ) Short Term Goal (STG) Pt will be independent and consistent with a self care HEP. 04/03/22: Mini squats & sit<> stand. 04/24/22: Asst'd ankle DF and IV; standing heel raises. 05/22/22: HEP: R knee strengthening ex for sitting flex/ext. 06/10/22: I/S pt in isis knee flex and sitting hip flex/AD w/ankle EV strengthening STG Duration 04/29/22 progressing 05/22/22 Cokeman Goal (LTG) Improve gait speed. 05/08/22: Gt speed with cane, ankle support/GB/SBA, 20ft/14 secs = 1.42 ft/sec. 05/22/22: Gt speed w/cane/ ankle support/SBA is 20'/12 secs = 1.67 ft/sec. LTG Duration 08/07/22 progressing 05/22/22 Assessment Summary Assessment R knee flexion most weak in knee extension ranges. She does have palpable medial & lateral hamstring contraction at different angles except when almost in full ext (1-20 extension lag range). Physical Therapy Plan Frequency and Duration Frequency of Treatment 2x/Week Duration of treatment (weeks) 12 Plan of Care Start Date 05/22/22 Plan of Care End Date 08/07/22 Next Visit Focus/Plan Next Note Type Treatment Note Next Visit Plan Pt will talk to jesse YANG in June about possible need for R AFO for walking. POC: L CVA rehab. R knee/ankle (avoiding increasing R knee hyper ext tone) & core & pelvic strengthening, and ROM R ankle ex's (EV, cont DF), Balance training for weight shifting and ambulation on incline/decline and uneven surfaces. Balance/gait ex.
--- NOTE | 2022-07-01 17:44 | PT.OTN ---
Current Diagnoses Hyperlipidemia, unspecified (07/01/22) Essential (primary) hypertension (07/01/22) Muscle weakness (generalized) (07/01/22) Other specified disorders of muscle (07/01/22) Unsteadiness on feet (07/01/22) Other abnormalities of gait and mobility (07/01/22) Physical Therapy Treatment Note PT-OP-A Visit Information Start: 03/18/22 12:11 Freq: Status: Active Protocol: Document 07/01/22 13:02 LRN (Rec: 07/01/22 13:48 LRN [id number]) Out-Patient Physical Therapy Visit Information Visit Information Visit Type Treatment Note Visit Note 4 after PN Visit Start Time 13:02 Visit Stop Time 13:43 Total Visit Minutes 41 Visit Number 14 Evaluation Information Evaluation Date 03/18/22 Precautions Precautions Osteoporosis, history of falls , HBP controlled by meds. PT-OP-B Current Condition Start: 03/18/22 12:11 Freq: Status: Active Protocol: Document 03/18/22 13:51 LRN (Rec: 03/18/22 14:42 LRN [id number]) Current Condition History of Current Condition Onset Date A few weeks ago referred for stroke rehab at pt request. L CVA 07/22/18 Current Complaints Hasn't had therapy in a yr. 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 States since stroke she has had therapy for a few months each year. Referred by Dr Jose Mcginnis at [facility], who will no longer be following her because he was a fill in physician. Has follow up visit with a physician in June 2022, who will be her primary care physician. Pt reports her walking is still unsteady and her R hand is useless. Pt will be receiving PT & OT. States hamstrings are begining to improve, feeling in her feet is improving, and the inner R ankle ms are getting stronger, so she is not rolling her R ankle any more. Pt complains she doesn't have big toes to help her balance because they curl in. If she steps on something unevenly then it causes her to loose her balance. When walking she looks down at the ground, and if she hears someone behind her, it causes her to tense up and decreases her balance ability because it is very distracting to her. Her balance when statioinary is good, but dynamically is not good. Prior Treatments and Tests See development section below. Developmental History Developmental History She continues to make progress and feels therapy seems to help. Stoke in 07/22/2018 in [place]. Was in intensive care a few days, hospital a week and rehab inpt for 1 month. Home health the following month and outpatient OT/PT from September-Feb 2019. Started therapy again 06/2019 to 10/2019. Fall 08/03/19 with concusion. In 2020 had outpt PT 07/12 to 11/09. Treatment Goals Patient/Caregiver Goals Pt goals: Able to walk up/down hill. Currently she needs to hand onto someone if she is on a incline. Wants to walk on [place] without help. Wants to walk on different surfaces safely (grass, soft sand or gravel, cobblestones). Improve gait stability and speed. Able to step over 4 doorframe or other objects. Prior Functional Status Baseline Function- ADL's Independent Baseline Function- Mobility Independent Baseline Function- Work/School Homemaker. Current Functional Impairments (Reported) Functional Limitations- ADL's Past 2 months walks 1.25 miles 6 days/week. Other exercise is housework. Before walking on trails was doing modified yoga and Pilates exercise daily. Functional Limitations- Mobility/Gait Ambs with SPC, 1.25 miles with cane with spouse assist with inclines and declines. Personal Factors Other Personal Factors That May Effect Pt lives with spouse and son Therapy/Recovery who is a high functioning adult with autism, osteoporosis, intracranial meningioma. PT-OP-C Subjective Start: 03/18/22 12:11 Freq: Status: Active Protocol: Document 07/01/22 13:02 LRN (Rec: 07/01/22 13:48 LRN [id number]) OP-PT Subjective Patient Comments Patient Comments States she cont'd to ex during holidays, 1x/day. States she was able to step fwd & bkwd with L leg in standing easily one day (noted pt had R knee locked in extension). PT-OP-D Balance Start: 03/18/22 12:11 Freq: Status: Active Protocol: Document 06/06/22 14:37 LRN (Rec: 06/06/22 17:14 LRN [id number]) [place] Balance Assessment Evaluation Sitting to Standing Ability Independent w/out Hands Unsupported Stance Safely- 2 minutes Sitting Unsupported, Feet on Floor Safely- 2 minutes Standing to Sitting Ability Safely, Minimal Hand Use Transfer Ability Safely, Minimal Hand Use Unsupported Stance- Eyes Closed Safely, 10 seconds Unsupported Stance- Eyes Open Independent, 1 minute Reaching Forward Standing Confidently, 10 inches Pick- Up Object From Floor Independent/Safe Look Behind Shoulder - Standing Shifts Weight Well Turning 360 Degrees Turns slowly, but safely Unsupported Stance, Alternating Feet on (I)- 8 Steps in 20 secs Stair Unsupported Tandem Stance Balance Lost- Step/Stand Unilateral Leg Stance Unable,assist to not fall Total Score [place]ford Total Score (out of 56 points) 46 [place] Impairment Rating 1 to 19% Impaired (Score 45-55 ) PT-OP-E Functional Tests Start: 03/18/22 12:11 Freq: Status: Active Protocol: Document 05/08/22 13:09 LRN (Rec: 05/08/22 15:43 LRN [id number]) Functional Tests Five Times Sit to Stand Test Score 17 secs Comments Previous on 03/18/22: 19 secs. Timed Up and Go (TUG) Score 23 secs Comments Previous 27 secs TUG Impairment Rating 100% Impaired (Score 20) PT-OP-G Mobility & Gait Start: 03/18/22 12:11 Freq: Status: Active Protocol: Document 03/18/22 13:51 LRN (Rec: 03/18/22 14:42 LRN [id number]) OP Mobility Evaluation Transfers Sit to Stand Stand to sit sometime uncontrolled. Stands greater on LLE. OP Gait Assessment Gait Gait Assistance Required: Standby Assistance Able to Maintain Weight Bearing Status Yes During Gait Assistive Devices Assistive Device Gait Belt,Straight Cane Orthotic/Prosthetic Devices or Brace: No Gait Deviations General Gait Pattern Decreased Stride Length,Flexed Trunk,Lateral Trunk Lean,Wide Based Gait Factors Limiting Gait Function Factors Limiting Gait Function Abnormal Tonal Influences, Decreased Strength,Limited Range of Motion,Poor Balance Comments Gait Comments Circumducts R LE, R drop foot, holds trunk in R rot, R arm held in flexion contracture. PT-OP-H Neuro Start: 03/18/22 12:11 Freq: Status: Active Protocol: Document 03/18/22 13:51 LRN (Rec: 03/18/22 14:42 LRN [id number]) Sensation Evaluation Gross Sensation Gross Sensation WNL PT-OP-J Posture/Palpation/Skin Start: 03/18/22 12:11 Freq: Status: Active Protocol: Document 03/18/22 13:51 LRN (Rec: 03/18/22 14:42 LRN [id number]) Posture Evaluation Position Standing Head/C-Spine Posture Forward Head T-Spine Posture Rotation Right Shoulder Posture (L) Elevated Knee Posture (R) Genu Recurvatum Comments Posture Comments R handed. PT-OP-M Strength Start: 03/18/22 12:11 Freq: Status: Active Protocol: Document 05/30/22 14:31 LRN (Rec: 05/30/22 15:19 LRN [id number]) Ankle/Foot Strength Ankle and Foot Manual Muscle Testing Right Dorsiflexion (L4) 0 Zero Plantarflexion (S1) 2- Poor- Inversion 1 Trace Eversion (S1) 1 Trace Left Comments Generally 5/5 PT-OP-Q Treatments Start: 03/18/22 12:11 Freq: Status: Active Protocol: Document 07/01/22 13:02 LRN (Rec: 07/01/22 13:48 LRN [id number]) Cardio Equipment Recumbent Bicycle Duration (Minutes) 5 Resistance 1 Seat Position 1 Other R foot strapped to pedal, Lifting legs vx pushing legs. Therapeutic Exercises Sitting Exercises Isis Knee flex Sitting Exercise Name Isis knee flex Side right Reps/Minutes (7') 5 SH in knee flex positions with foot in EV and neutral R hip flex august Sitting Exercise Name R hip flex with assisted ankle EV and sometimes hip AD Side right Reps/Minutes 6' Sit<>Stand Sitting Exercise Name Sit<>Stand: L leg fwd standing , wgt shift to bring leg back for sit control Side right Reps/Minutes 17' Comments Much caution/slow descent/ cuing for control of RLE on sitting to not plop Standing Exercises Weight shifting Standing Exercise Name Wgt shifting to RLE for stepping fwd/back with L LE Comments Phys cuing for pt to not lock R LE into extension. R Gastroc stretch Standing Exercise Name Gastroc stretch Side right Equipment Used Holding railing with LUE. Reps/Minutes 1x PT-OP-T Assessment and Plan Start: 03/18/22 12:11 Freq: Status: Active Protocol: Document 07/01/22 13:02 LRN (Rec: 07/01/22 13:48 LRN [id number]) Physical Therapy Assessment Goals Four Impairment Decreased standing dynamic balance. Impairment Pt requires railing UE support to step over objects. 03/21/22: [place] Balance Score is 44 (>35 is safe amb w/ assistive device, >45 is safe w/o assist device) Short Term Goal (STG) Pt will be able to walk on different surfaces safely ( grass, soft sand or gravel to mimic cobblestones) with CGA> SBA. 05/08/22: Walked on hard sand with spouse giving CGA. 05/22/22: Pt needs guarding and assist every ~10 steps, used to be every step. Walked on trampled grass by self for 10' and grass/gravel w/spouse giving CGA with 1-2x Odal[place]. 06/06/22: [place] Balance Score is 46, safe amb w/o assist device. Pt demonstrating gait consistent with L CVA ( weakness and tone on RLE). STG Duration 07/21/21 progressing 05/22/22. [facility] Goal (LTG) Pt will be able to step over 4 doorframe or other objects with use of SPC. 06/06/22: Pt able to step over 4 and 5 objects ( doorframe like) with use of SPC safely. LTG Duration 08/07/22 (06/06/22: MET GOAL) Three Impairment Decreased ability to walk up/ down inclines Impairment Requires arm hold assist when walking on an incline for safety. Short Term Goal (STG) Able to walk up/down a hill with CGA>SBA for safety. 05/08/22: Walking small incline on [place]. 05/22/22: Walking on [place] gentle hills (inclines/ declines) 4x. She can walk by self now. Spouse helps 1x each way, used to be all the time. Able to do inclines/ declines when weather is good and no wet leaves around. STG Duration 07/21/22 Goal partially met 05/22/22. [employer]ental [employer] Goal (LTG) Pt will be able to walk on [place] with SBA and an adaptive device for the RLE ( AFO) as needed. 05/08/22: Pt walking with spouse on [place] with SBA and ankle support. 05/22/22: Pt walking w/spoulse [place] with SBA> independent/cane/ankle support ). LTG Duration 08/07/22 (: MET GOAL). Two Impairment Decreased R LE strength Impairment Hyperextension of R knee with gait. R knee strength: Flex is 2/5, Ext is 4/5 and lacking ECC control with end-range extension. R ankle strength: Generally 1 /5 except ankle DF is 0/5. Short Term Goal (STG) Improve R knee and ankle strength 1/2 grade. 05/22/22: R knee flex 3-/5, Ext 4+/5. STG Duration 04/29/22 (05/22/22: MET GOAL ) [facility] Goal (LTG) Pt will demonstrate improved stability with gait with ability to limit R knee hyperextension during gait. 06/10/22: Pt needs phys & v cuing to prevent hyper ext of R knee during gait. LTG Duration 08/07/22 One Impairment Lacks appropriate self care HEP. Impairment Gait speed: 1.33 ft/sec ( measured over 20' walking span ) Short Term Goal (STG) Pt will be independent and consistent with a self care HEP. 04/03/22: Mini squats & sit<> stand. 04/24/22: Asst'd ankle DF and IV; standing heel raises. 05/22/22: HEP: R knee strengthening ex for sitting flex/ext. 06/10/22: I/S pt in isis knee flex and sitting hip flex/AD w/ankle EV strengthening STG Duration 04/29/22 progressing 05/22/22 [facility] Goal (LTG) Improve gait speed. 05/08/22: Gt speed with cane, ankle support/GB/SBA, 20ft/14 secs = 1.42 ft/sec. 05/22/22: Gt speed w/cane/ ankle support/SBA is 20'/12 secs = 1.67 ft/sec. LTG Duration 08/07/22 progressing 05/22/22 Assessment Summary Assessment Pt feels she doesn't need R AFO because she is not catching her R toes on ground. Pt able to control sit with sit<>stands when cued. She appears to be WBing more through RLE with walking and exercise. Pt not able to maintain slight flex in R knee at end of therapy due to fatigue. Physical Therapy Plan Frequency and Duration Frequency of Treatment 2x/Week Duration of treatment (weeks) 12 Plan of Care Start Date 05/22/22 Plan of Care End Date 08/07/22 Next Visit Focus/Plan Next Note Type Treatment Note Next Visit Plan Pt will talk to jesse YANG in June about possible need for R AFO for walking. POC: L CVA rehab. R knee/ankle (avoiding increasing R knee hyper ext tone) & core & pelvic strengthening, and ROM R ankle ex's (EV, cont DF), Balance training for weight shifting and ambulation on incline/decline and uneven surfaces. Balance/gait ex.
--- NOTE | 2022-07-07 11:15 | PT.OTN ---
Current Diagnoses Hyperlipidemia, unspecified (07/07/22) Essential (primary) hypertension (07/07/22) Muscle weakness (generalized) (07/07/22) Other specified disorders of muscle (07/07/22) Unsteadiness on feet (07/07/22) Other abnormalities of gait and mobility (07/07/22) Physical Therapy Treatment Note PT-OP-A Visit Information Start: 03/18/22 12:11 Freq: Status: Active Protocol: Document 07/07/22 10:35 SP (Rec: 07/07/22 11:48 SP [id number]) Out-Patient Physical Therapy Visit Information Visit Information Visit Type Treatment Note Visit Note 5 after PN Visit Start Time 10:35 Visit Stop Time 11:15 Total Visit Minutes 40 Visit Number 15 Number of IMPLANT POLISHER Visits 1 Evaluation Information Evaluation Date 03/18/22 Precautions Precautions Osteoporosis, history of falls , HBP controlled by meds. PT-OP-B Current Condition Start: 03/18/22 12:11 Freq: Status: Active Protocol: Document 03/18/22 13:51 LRN (Rec: 03/18/22 14:42 LRN [id number]) Current Condition History of Current Condition Onset Date A few weeks ago referred for stroke rehab at pt request. L CVA 07/22/18 Current Complaints Hasn't had therapy in a yr. 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 States since stroke she has had therapy for a few months each year. Referred by Dr Jose Mcginnis at [facility], who will no longer be following her because he was a fill in physician. Has follow up visit with a physician in June 2022, who will be her primary care physician. Pt reports her walking is still unsteady and her R hand is useless. Pt will be receiving PT & OT. States hamstrings are begining to improve, feeling in her feet is improving, and the inner R ankle ms are getting stronger, so she is not rolling her R ankle any more. Pt complains she doesn't have big toes to help her balance because they curl in. If she steps on something unevenly then it causes her to loose her balance. When walking she looks down at the ground, and if she hears someone behind her, it causes her to tense up and decreases her balance ability because it is very distracting to her. Her balance when statioinary is good, but dynamically is not good. Prior Treatments and Tests See development section below. Developmental History Developmental History She continues to make progress and feels therapy seems to help. Stoke in 07/22/2018 in [place]. Was in intensive care a few days, hospital a week and rehab inpt for 1 month. Home health the following month and outpatient OT/PT from September-Feb 2019. Started therapy again 06/2019 to 10/2019. Fall 08/03/19 with concusion. In 2020 had outpt PT 07/12 to 11/09. Treatment Goals Patient/Caregiver Goals Pt goals: Able to walk up/down hill. Currently she needs to hand onto someone if she is on a incline. Wants to walk on [place] without help. Wants to walk on different surfaces safely (grass, soft sand or gravel, cobblestones). Improve gait stability and speed. Able to step over 4 doorframe or other objects. Prior Functional Status Baseline Function- ADL's Independent Baseline Function- Mobility Independent Baseline Function- Work/School Homemaker. Current Functional Impairments (Reported) Functional Limitations- ADL's Past 2 months walks 1.25 miles 6 days/week. Other exercise is housework. Before walking on trails was doing modified yoga and Pilates exercise daily. Functional Limitations- Mobility/Gait Ambs with SPC, 1.25 miles with cane with spouse assist with inclines and declines. Personal Factors Other Personal Factors That May Effect Pt lives with spouse and son Therapy/Recovery who is a high functioning adult with autism, osteoporosis, intracranial meningioma. PT-OP-C Subjective Start: 03/18/22 12:11 Freq: Status: Active Protocol: Document 07/07/22 10:35 SP (Rec: 07/07/22 11:48 SP [id number]) OP-PT Subjective Patient Comments Patient Comments Pt states performing STS w/ RLE back to make harder. Walking better with good clearance. More confident on R Leg with [place] to allow positioning leg out and back motioning but her R knee locks and so wants to get better at this. She reports has been doing off wall leans and lifting R leg but hard time SLS and balance, wants to work on this. PT-OP-D Balance Start: 03/18/22 12:11 Freq: Status: Active Protocol: Document 06/06/22 14:37 LRN (Rec: 06/06/22 17:14 LRN [id number]) [place] Balance Assessment Evaluation Sitting to Standing Ability Independent w/out Hands Unsupported Stance Safely- 2 minutes Sitting Unsupported, Feet on Floor Safely- 2 minutes Standing to Sitting Ability Safely, Minimal Hand Use Transfer Ability Safely, Minimal Hand Use Unsupported Stance- Eyes Closed Safely, 10 seconds Unsupported Stance- Eyes Open Independent, 1 minute Reaching Forward Standing Confidently, 10 inches Pick- Up Object From Floor Independent/Safe Look Behind Shoulder - Standing Shifts Weight Well Turning 360 Degrees Turns slowly, but safely Unsupported Stance, Alternating Feet on (I)- 8 Steps in 20 secs Stair Unsupported Tandem Stance Balance Lost- Step/Stand Unilateral Leg Stance Unable,assist to not fall Total Score [place] Total Score (out of 56 points) 46 [place] Impairment Rating 1 to 19% Impaired (Score 45-55 ) PT-OP-E Functional Tests Start: 03/18/22 12:11 Freq: Status: Active Protocol: Document 05/08/22 13:09 LRN (Rec: 05/08/22 15:43 LRN [id number]) Functional Tests Five Times Sit to Stand Test Score 17 secs Comments Previous on 03/18/22: 19 secs. Timed Up and Go (TUG) Score 23 secs Comments Previous 27 secs TUG Impairment Rating 100% Impaired (Score 20) PT-OP-G Mobility & Gait Start: 03/18/22 12:11 Freq: Status: Active Protocol: Document 03/18/22 13:51 LRN (Rec: 03/18/22 14:42 LRN [id number]) OP Mobility Evaluation Transfers Sit to Stand Stand to sit sometime uncontrolled. Stands greater on LLE. OP Gait Assessment Gait Gait Assistance Required: Standby Assistance Able to Maintain Weight Bearing Status Yes During Gait Assistive Devices Assistive Device Gait Belt,Straight Cane Orthotic/Prosthetic Devices or Brace: No Gait Deviations General Gait Pattern Decreased Stride Length,Flexed Trunk,Lateral Trunk Lean,Wide Based Gait Factors Limiting Gait Function Factors Limiting Gait Function Abnormal Tonal Influences, Decreased Strength,Limited Range of Motion,Poor Balance Comments Gait Comments Circumducts R LE, R drop foot, holds trunk in R rot, R arm held in flexion contracture. PT-OP-H Neuro Start: 03/18/22 12:11 Freq: Status: Active Protocol: Document 03/18/22 13:51 LRN (Rec: 03/18/22 14:42 LRN [id number]) Sensation Evaluation Gross Sensation Gross Sensation WNL PT-OP-J Posture/Palpation/Skin Start: 03/18/22 12:11 Freq: Status: Active Protocol: Document 03/18/22 13:51 LRN (Rec: 03/18/22 14:42 LRN [id number]) Posture Evaluation Position Standing Head/C-Spine Posture Forward Head T-Spine Posture Rotation Right Shoulder Posture (L) Elevated Knee Posture (R) Genu Recurvatum Comments Posture Comments R handed. PT-OP-M Strength Start: 03/18/22 12:11 Freq: Status: Active Protocol: Document 05/30/22 14:31 LRN (Rec: 05/30/22 15:19 LRN [id number]) Ankle/Foot Strength Ankle and Foot Manual Muscle Testing Right Dorsiflexion (L4) 0 Zero Plantarflexion (S1) 2- Poor- Inversion 1 Trace Eversion (S1) 1 Trace Left Comments Generally 5/5 PT-OP-Q Treatments Start: 03/18/22 12:11 Freq: Status: Active Protocol: Document 07/07/22 10:35 SP (Rec: 07/07/22 11:48 SP [id number]) Cardio Equipment Recumbent Bicycle Duration (Minutes) 6 Resistance 5 Seat Position 1 (0/87 miles) Other R foot strapped to pedal, Lifting legs vx pushing legs. Therapeutic Exercises Sitting Exercises Knee flex Sitting Exercise Name knee flex - TB resisting and assisting Side right Resistance AAROM needed support Equipment Used seated fully backmesh chair, wedge behind back, red scooter Reps/Minutes x10 reps Comments cued level trunk/pelvis alignment Standing Exercises step up/back down Standing Exercise Name added to HEP (no HO provided) Side bilateral Equipment Used L HR, SBA Reps/Minutes 4x5 reps lead each LE Comments cued tall posture, quad/HS fac concentric/eccentric- improved form stab mini squat holds Standing Exercise Name HS strengthening Equipment Used PRN light contact back chair Reps/Minutes 2x10 reps 5 SH Comments RLE more posterior stagger stance putting weight more onto RLE, good form. Weight shifting Standing Exercise Name Wgt shifting tall posture over REL Equipment Used RUE/shld contact wall, R foot 4 away from wall Reps/Minutes 5 min Comments Phys cuing & ant contact R knee to pt, improved decrease R knee ext locking PT-OP-T Assessment and Plan Start: 03/18/22 12:11 Freq: Status: Active Protocol: Document 07/07/22 10:35 SP (Rec: 07/07/22 11:48 SP [id number]) Physical Therapy Assessment Goals Four Impairment Decreased standing dynamic balance. Impairment Pt requires railing UE support to step over objects. 03/21/22: [place] Balance Score is 44 (>35 is safe amb w/ assistive device, >45 is safe w/o assist device) Short Term Goal (STG) Pt will be able to walk on different surfaces safely ( grass, soft sand or gravel to mimic cobblestones) with CGA> SBA. 05/08/22: Walked on hard sand with spouse giving CGA. 05/22/22: Pt needs guarding and assist every ~10 steps, used to be every step. Walked on trampled grass by self for 10' and grass/gravel w/spouse giving CGA with 1-2x [place]. 06/06/22: [place] Balance Score is 46, safe amb w/o assist device. Pt demonstrating gait consistent with L CVA ( weakness and tone on RLE). STG Duration 07/21/21 progressing 05/22/22. Custodial Goal (LTG) Pt will be able to step over 4 doorframe or other objects with use of SPC. 06/06/22: Pt able to step over 4 and 5 objects ( doorframe like) with use of SPC safely. LTG Duration 08/07/22 (06/06/22: MET GOAL) Three Impairment Decreased ability to walk up/ down inclines Impairment Requires arm hold assist when walking on an incline for safety. Short Term Goal (STG) Able to walk up/down a hill with CGA>SBA for safety. 05/08/22: Walking small incline on [place]. 05/22/22: Walking on [place] gentle hills (inclines/ declines) 4x. She can walk by self now. Spouse helps 1x each way, used to be all the time. Able to do inclines/ declines when weather is good and no wet leaves around. STG Duration 07/21/22 Goal partially met 05/22/22. Custodial Goal (LTG) Pt will be able to walk on [place] with SBA and an adaptive device for the RLE ( AFO) as needed. 05/08/22: Pt walking with spouse on [place] with SBA and ankle support. 05/22/22: Pt walking w/spoulse [place] with SBA> independent/cane/ankle support ). LTG Duration 08/07/22 (: MET GOAL). Two Impairment Decreased R LE strength Impairment Hyperextension of R knee with gait. R knee strength: Flex is 2/5, Ext is 4/5 and lacking ECC control with end-range extension. R ankle strength: Generally 1 /5 except ankle DF is 0/5. Short Term Goal (STG) Improve R knee and ankle strength 1/2 grade. 05/22/22: R knee flex 3-/5, Ext 4+/5. STG Duration 04/29/22 (05/22/22: MET GOAL ) Custodial Goal (LTG) Pt will demonstrate improved stability with gait with ability to limit R knee hyperextension during gait. 06/10/22: Pt needs phys & v cuing to prevent hyper ext of R knee during gait. 07/07/22: improved trunk alignment and decrease hip hike, better hip/ knee flexion RLE during gait post step con /ecc step ups. LTG Duration 08/07/22 progressing 07/07/22 One Impairment Lacks appropriate self care HEP. Impairment Gait speed: 1.33 ft/sec ( measured over 20' walking span ) Short Term Goal (STG) Pt will be independent and consistent with a self care HEP. 04/03/22: Mini squats & sit<> stand. 04/24/22: Asst'd ankle DF and IV; standing heel raises. 05/22/22: HEP: R knee strengthening ex for sitting flex/ext. 06/10/22: I/S pt in del knee flex and sitting hip flex/AD w/ankle EV strengthening STG Duration 04/29/22 progressing 05/22/22 Risk And Insurance Manager Goal (LTG) Improve gait speed. 11/17/22: Gt speed with cane, ankle support/GB/SBA, 20ft/14 secs = 1.42 ft/sec. 05/22/22: Gt speed w/cane/ ankle support/SBA is 20'/12 secs = 1.67 ft/sec. LTG Duration 08/07/22 progressing 05/22/22 Assessment Summary Assessment Pt improved trunk alignment and decrease hip hike, better hip/ knee flexion RLE during gait post step con/ecc step ups. Improved self postural correction alignment, mini squat and at wall activity core and hip abd/HS/Quad fac. Physical Therapy Plan Frequency and Duration Frequency of Treatment 2x/Week Duration of treatment (weeks) 12 Plan of Care Start Date 05/22/22 Plan of Care End Date 08/07/22 Therapeutic Interventions Therapeutic Interventions Gait Training,Home Exercise Program,Neuromuscular Re- education,Patient/Caregiver Education,Self-Care/Home Management,Therapeutic Exercises Modalities Cold Pack/Ice Massage,Hot Packs Next Visit Focus/Plan Next Note Type Treatment Note Next Visit Plan Repeat step ups, assess 6MWT and gait speed, update progress goals. Add hurdles. Recheck: Pt will talk to new MD in June about possible need for R AFO for walking. POC: L CVA rehab. R knee/ankle (avoiding increasing R knee hyper ext tone) & core & pelvic strengthening, and ROM R ankle ex's (EV, cont DF), Balance training for weight shifting and ambulation on incline/decline and uneven surfaces. Balance/gait ex.
--- NOTE | 2022-07-17 17:27 | PT.OTN ---
Current Diagnoses Hyperlipidemia, unspecified (07/17/22) Essential (primary) hypertension (07/17/22) Muscle weakness (generalized) (07/17/22) Other specified disorders of muscle (07/17/22) Unsteadiness on feet (07/17/22) Other abnormalities of gait and mobility (07/17/22) Physical Therapy Treatment Note PT-OP-A Visit Information Start: 03/18/22 12:11 Freq: Status: Active Protocol: Document 07/17/22 13:03 LRN (Rec: 07/17/22 13:48 LRN [id number]) Out-Patient Physical Therapy Visit Information Visit Information Visit Type Treatment Note Visit Note 6 after PN Visit Start Time 13:03 Visit Stop Time 13:42 Total Visit Minutes 39 Visit Number 16 Evaluation Information Evaluation Date 03/18/22 Precautions Precautions Osteoporosis, history of falls , HBP controlled by meds. PT-OP-B Current Condition Start: 03/18/22 12:11 Freq: Status: Active Protocol: Document 03/18/22 13:51 LRN (Rec: 03/18/22 14:42 LRN [id number]) Current Condition History of Current Condition Onset Date A few weeks ago referred for stroke rehab at pt request. L CVA 07/22/18 Current Complaints Hasn't had therapy in a yr. 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 States since stroke she has had therapy for a few months each year. Referred by Dr Jose cMginnis at [facility], who will no longer be following her because he was a fill in physician. Has follow up visit with a physician in June 2022, who will be her primary care physician. Pt reports her walking is still unsteady and her R hand is useless. Pt will be receiving PT & OT. States hamstrings are begining to improve, feeling in her feet is improving, and the inner R ankle ms are getting stronger, so she is not rolling her R ankle any more. Pt complains she doesn't have big toes to help her balance because they curl in. If she steps on something unevenly then it causes her to loose her balance. When walking she looks down at the ground, and if she hears someone behind her, it causes her to tense up and decreases her balance ability because it is very distracting to her. Her balance when statioinary is good, but dynamically is not good. Prior Treatments and Tests See development section below. Developmental History Developmental History She continues to make progress and feels therapy seems to help. Stoke in 07/22/2018 in [place]. Was in intensive care a few days, hospital a week and rehab inpt for 1 month. Home health the following month and outpatient OT/PT from September-Feb 2019. Started therapy again 06/2019 to 10/2019. Fall 08/03/19 with concusion. In 2020 had outpt PT 07/12 to 11/09. Treatment Goals Patient/Caregiver Goals Pt goals: Able to walk up/down hill. Currently she needs to hand onto someone if she is on a incline. Wants to walk on [place] without help. Wants to walk on different surfaces safely (grass, soft sand or gravel, cobblestones). Improve gait stability and speed. Able to step over 4 doorframe or other objects. Prior Functional Status Baseline Function- ADL's Independent Baseline Function- Mobility Independent Baseline Function- Work/School Homemaker. Current Functional Impairments (Reported) Functional Limitations- ADL's Past 2 months walks 1.25 miles 6 days/week. Other exercise is housework. Before walking on trails was doing modified yoga and Pilates exercise daily. Functional Limitations- Mobility/Gait Ambs with SPC, 1.25 miles with cane with spouse assist with inclines and declines. Personal Factors Other Personal Factors That May Effect Pt lives with spouse and son Therapy/Recovery who is a high functioning adult with autism, osteoporosis, intracranial meningioma. PT-OP-C Subjective Start: 03/18/22 12:11 Freq: Status: Active Protocol: Document 07/17/22 13:03 LRN (Rec: 07/17/22 13:48 LRN [id number]) OP-PT Subjective Patient Comments Patient Comments States she walks better when the weather is warmer. Today she feels cold. WAlking 3-4 days/week. PT-OP-D Balance Start: 03/18/22 12:11 Freq: Status: Active Protocol: Document 06/06/22 14:37 LRN (Rec: 06/06/22 17:14 LRN [id number]) [place] Balance Assessment Evaluation Sitting to Standing Ability Independent w/out Hands Unsupported Stance Safely- 2 minutes Sitting Unsupported, Feet on Floor Safely- 2 minutes Standing to Sitting Ability Safely, Minimal Hand Use Transfer Ability Safely, Minimal Hand Use Unsupported Stance- Eyes Closed Safely, 10 seconds Unsupported Stance- Eyes Open Independent, 1 minute Reaching Forward Standing Confidently, 10 inches Pick- Up Object From Floor Independent/Safe Look Behind Shoulder - Standing Shifts Weight Well Turning 360 Degrees Turns slowly, but safely Unsupported Stance, Alternating Feet on (I)- 8 Steps in 20 secs Stair Unsupported Tandem Stance Balance Lost- Step/Stand Unilateral Leg Stance Unable,assist to not fall Total Score [place]ford Total Score (out of 56 points) 46 [place] Impairment Rating 1 to 19% Impaired (Score 45-55 ) PT-OP-E Functional Tests Start: 03/18/22 12:11 Freq: Status: Active Protocol: Document 07/17/22 13:03 LRN (Rec: 07/17/22 13:48 LRN [id number]) Functional Tests 6 Minute Walk Test Distance 313 ft Device Used L SPC Comments Tennis shoes, cuing to not lock R knee into extension PT-OP-G Mobility & Gait Start: 03/18/22 12:11 Freq: Status: Active Protocol: Document 03/18/22 13:51 LRN (Rec: 03/18/22 14:42 LRN [id number]) OP Mobility Evaluation Transfers Sit to Stand Stand to sit sometime uncontrolled. Stands greater on LLE. OP Gait Assessment Gait Gait Assistance Required: Standby Assistance Able to Maintain Weight Bearing Status Yes During Gait Assistive Devices Assistive Device Gait Belt,Straight Cane Orthotic/Prosthetic Devices or Brace: No Gait Deviations General Gait Pattern Decreased Stride Length,Flexed Trunk,Lateral Trunk Lean,Wide Based Gait Factors Limiting Gait Function Factors Limiting Gait Function Abnormal Tonal Influences, Decreased Strength,Limited Range of Motion,Poor Balance Comments Gait Comments Circumducts R LE, R drop foot, holds trunk in R rot, R arm held in flexion contracture. PT-OP-H Neuro Start: 03/18/22 12:11 Freq: Status: Active Protocol: Document 03/18/22 13:51 LRN (Rec: 03/18/22 14:42 LRN [id number]) Sensation Evaluation Gross Sensation Gross Sensation WNL PT-OP-J Posture/Palpation/Skin Start: 03/18/22 12:11 Freq: Status: Active Protocol: Document 03/18/22 13:51 LRN (Rec: 03/18/22 14:42 LRN [id number]) Posture Evaluation Position Standing Head/C-Spine Posture Forward Head T-Spine Posture Rotation Right Shoulder Posture (L) Elevated Knee Posture (R) Genu Recurvatum Comments Posture Comments R handed. PT-OP-M Strength Start: 03/18/22 12:11 Freq: Status: Active Protocol: Document 05/30/22 14:31 LRN (Rec: 05/30/22 15:19 LRN [id number]) Ankle/Foot Strength Ankle and Foot Manual Muscle Testing Right Dorsiflexion (L4) 0 Zero Plantarflexion (S1) 2- Poor- Inversion 1 Trace Eversion (S1) 1 Trace Left Comments Generally 5/5 PT-OP-Q Treatments Start: 03/18/22 12:11 Freq: Status: Active Protocol: Document 07/17/22 13:03 LRN (Rec: 07/17/22 13:48 LRN [id number]) Cardio Equipment Recumbent Bicycle Duration (Minutes) 8 Resistance 1 Seat Position 1 Other R foot strapped to pedal, Lifting legs vx pushing legs. Therapeutic Exercises Sitting Exercises Knee flex Sitting Exercise Name knee flex - TB resisting and end-range assisting Side right Resistance AAROM needed support Equipment Used seated fully backmesh chair, and sit on end of plinth Reps/Minutes 8' Comments cued level trunk/pelvis alignment Gait Training Gait Activity R Knee control Description Lifting R knee in strgt plane & limiting knee hyerext & circumduction. Device Used SPC Level of Assistance Moderate cuing to R knee and CGA Surface Level Distance/Duration 23 min Treatment Focus R knee control to prevent hyperextension, ankle DF Comments verbal and physical cuing to keep R knee from hyper extending. (initial assess on 03/18/22: Gait speed: 20'/15 secs = 1.33 ft/sec.) (2nd assess on 05/08/22: Gt speed 20/14 secs = 1.42 ft/sec ). (3rd assess on 05/22/22: Gt speed 20'/12 secs = 1.67 ft/ sec). (07/17/22: 6' Walk Test - 313 ft). PT-OP-T Assessment and Plan Start: 03/18/22 12:11 Freq: Status: Active Protocol: Document 07/17/22 13:03 LRN (Rec: 07/17/22 13:48 LRN [id number]) Physical Therapy Assessment Goals Four Impairment Decreased standing dynamic balance. Impairment Pt requires railing UE support to step over objects. 03/21/22: [place]ORD Balance Score is 44 (>35 is safe amb w/ assistive device, >45 is safe w/o assist device) Short Term Goal (STG) Pt will be able to walk on different surfaces safely ( grass, soft sand or gravel to mimic cobblestones) with CGA> SBA. 05/08/22: Walked on hard sand with spouse giving CGA. 05/22/22: Pt needs guarding and assist every ~10 steps, used to be every step. Walked on trampled grass by self for 10' and grass/gravel w/spouse giving CGA with 1-2x [place]. 06/06/22: [place] Balance Score is 46, safe amb w/o assist device. Pt demonstrating gait consistent with L CVA ( weakness and tone on RLE). STG Duration 07/21/21 progressing 05/22/22. 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 06/06/22: Pt able to step over 4 and 5 objects ( doorframe like) with use of SPC safely. LTG Duration 08/07/22 (06/06/22: MET GOAL) Three Impairment Decreased ability to walk up/ down inclines Impairment Requires arm hold assist when walking on an incline for safety. Short Term Goal (STG) Able to walk up/down a hill with CGA>SBA for safety. 05/08/22: Walking small incline on [place]. 05/22/22: Walking on [place] gentle hills (inclines/ declines) 4x. She can walk by self now. Spouse helps 1x each way, used to be all the time. Able to do inclines/ declines when weather is good and no wet leaves around. STG Duration 07/21/22 Goal partially met 05/22/22. Alf Goal (LTG) Pt will be able to walk on [place] with SBA and an adaptive device for the RLE ( AFO) as needed. 05/08/22: Pt walking with spouse on [place] with SBA and ankle support. 05/22/22: Pt walking w/spoulse [place] with SBA> independent/cane/ankle support ). LTG Duration 08/07/22 (: MET GOAL). Two Impairment Decreased R LE strength Impairment Hyperextension of R knee with gait. R knee strength: Flex is 2/5, Ext is 4/5 and lacking ECC control with end-range extension. R ankle strength: Generally 1 /5 except ankle DF is 0/5. Short Term Goal (STG) Improve R knee and ankle strength 1/2 grade. 05/22/22: R knee flex 3-/5, Ext 4+/5. STG Duration 04/29/22 (05/22/22: MET GOAL ) Alf Goal (LTG) Pt will demonstrate improved stability with gait with ability to limit R knee hyperextension during gait. 06/10/22: Pt needs phys & v cuing to prevent hyper ext of R knee during gait. 07/07/22: improved trunk alignment and decrease hip hike, better hip/ knee flexion RLE during gait post step con /ecc step ups. LTG Duration 08/07/22 progressing 07/07/22 One Impairment Lacks appropriate self care HEP. Impairment Gait speed: 1.33 ft/sec ( measured over 20' walking span ) Short Term Goal (STG) Pt will be independent and consistent with a self care HEP. 04/03/22: Mini squats & sit<> stand. 04/24/22: Asst'd ankle DF and IV; standing heel raises. 05/22/22: HEP: R knee strengthening ex for sitting flex/ext. 06/10/22: I/S pt in del knee flex and sitting hip flex/AD w/ankle EV strengthening STG Duration 04/29/22 progressing 05/22/22 Alf Goal (LTG) Improve gait speed. 05/08/22: Gt speed with cane, ankle support/GB/SBA, 20ft/14 secs = 1.42 ft/sec. 05/22/22: Gt speed w/cane/ ankle support/SBA is 20'/12 secs = 1.67 ft/sec. LTG Duration 08/07/22 progressing 05/22/22 Assessment Summary Assessment After much cuing pt was able to ambulate with improved R knee control and not locking knee straight with initiation of heel strike phase. Pt lacks active R knee flex at end-range due to weakness; overall weak with knee flexion . Physical Therapy Plan Frequency and Duration Frequency of Treatment 2x/Week Duration of treatment (weeks) 12 Plan of Care Start Date 05/22/22 Plan of Care End Date 08/07/22 Next Visit Focus/Plan Next Note Type Treatment Note Next Visit Plan Repeat step ups, assess gait speed, update progress goals. Add hurdles. Recheck: Pt will talk to jesse YANG in June about possible need for R AFO for walking. POC: L CVA rehab. R knee/ankle (avoiding increasing R knee hyper ext tone) & core & pelvic strengthening, and ROM R ankle ex's (EV, cont DF), Balance training for weight shifting and ambulation on incline/decline and uneven surfaces. Balance/gait ex.
--- NOTE | 2022-07-22 15:14 | PT.OTN ---
Current Diagnoses Hyperlipidemia, unspecified (07/22/22) Essential (primary) hypertension (07/22/22) Muscle weakness (generalized) (07/22/22) Other specified disorders of muscle (07/22/22) Unsteadiness on feet (07/22/22) Other abnormalities of gait and mobility (07/22/22) Physical Therapy Treatment Note PT-OP-A Visit Information Start: 03/18/22 12:11 Freq: Status: Active Protocol: Document 07/22/22 13:02 LRN (Rec: 07/22/22 13:52 LRN [id number]) Out-Patient Physical Therapy Visit Information Visit Information Visit Type Treatment Note Visit Start Time 13:02 Visit Stop Time 13:45 Total Visit Minutes 43 Visit Number 17 Evaluation Information Evaluation Date 03/18/22 Precautions Precautions Osteoporosis, history of falls , HBP controlled by meds. PT-OP-B Current Condition Start: 03/18/22 12:11 Freq: Status: Active Protocol: Document 03/18/22 13:51 LRN (Rec: 03/18/22 14:42 LRN [id number]) Current Condition History of Current Condition Onset Date A few weeks ago referred for stroke rehab at pt request. L CVA 07/22/18 Current Complaints Hasn't had therapy in a yr. 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 States since stroke she has had therapy for a few months each year. Referred by Dr Jose Mcginnis at [facility], who will no longer be following her because he was a fill in physician. Has follow up visit with a physician in June 2022, who will be her primary care physician. Pt reports her walking is still unsteady and her R hand is useless. Pt will be receiving PT & OT. States hamstrings are begining to improve, feeling in her feet is improving, and the inner R ankle ms are getting stronger, so she is not rolling her R ankle any more. Pt complains she doesn't have big toes to help her balance because they curl in. If she steps on something unevenly then it causes her to loose her balance. When walking she looks down at the ground, and if she hears someone behind her, it causes her to tense up and decreases her balance ability because it is very distracting to her. Her balance when statioinary is good, but dynamically is not good. Prior Treatments and Tests See development section below. Developmental History Developmental History She continues to make progress and feels therapy seems to help. Stoke in 07/22/2018 in [place]. Was in intensive care a few days, hospital a week and rehab in for 1 month. Home health the following month and outpatient OT/PT from September-Feb 2019. Started therapy again 06/2019 to 10/2019. Fall 08/03/19 with concusion. In 2020 had outpt PT 07/12 to 11/09. Treatment Goals Patient/Caregiver Goals Pt goals: Able to walk up/down hill. Currently she needs to hand onto someone if she is on a incline. Wants to walk on [place] without help. Wants to walk on different surfaces safely (grass, soft sand or gravel, cobblestones). Improve gait stability and speed. Able to step over 4 doorframe or other objects. Prior Functional Status Baseline Function- ADL's Independent Baseline Function- Mobility Independent Baseline Function- Work/School Homemaker. Current Functional Impairments (Reported) Functional Limitations- ADL's Past 2 months walks 1.25 miles 6 days/week. Other exercise is housework. Before walking on trails was doing modified yoga and Pilates exercise daily. Functional Limitations- Mobility/Gait Ambs with SPC, 1.25 miles with cane with spouse assist with inclines and declines. Personal Factors Other Personal Factors That May Effect Pt lives with spouse and son Therapy/Recovery who is a high functioning adult with autism, osteoporosis, intracranial meningioma. PT-OP-C Subjective Start: 03/18/22 12:11 Freq: Status: Active Protocol: Document 07/22/22 13:02 LRN (Rec: 07/22/22 13:52 LRN [id number]) OP-PT Subjective Patient Comments Patient Comments Pt reports yesterday suffering a R groin strain, pointing to hip AD's. Pt felt at end of her normal walk (slow pace) in cold weather. PT-OP-D Balance Start: 03/18/22 12:11 Freq: Status: Active Protocol: Document 06/06/22 14:37 LRN (Rec: 06/06/22 17:14 LRN [id number]) [place] Balance Assessment Evaluation Sitting to Standing Ability Independent w/out Hands Unsupported Stance Safely- 2 minutes Sitting Unsupported, Feet on Floor Safely- 2 minutes Standing to Sitting Ability Safely, Minimal Hand Use Transfer Ability Safely, Minimal Hand Use Unsupported Stance- Eyes Closed Safely, 10 seconds Unsupported Stance- Eyes Open Independent, 1 minute Reaching Forward Standing Confidently, 10 inches Pick- Up Object From Floor Independent/Safe Look Behind Shoulder - Standing Shifts Weight Well Turning 360 Degrees Turns slowly, but safely Unsupported Stance, Alternating Feet on (I)- 8 Steps in 20 secs Stair Unsupported Tandem Stance Balance Lost- Step/Stand Unilateral Leg Stance Unable,assist to not fall Total Score [place] Total Score (out of 56 points) 46 [place] Impairment Rating 1 to 19% Impaired (Score 45-55 ) PT-OP-E Functional Tests Start: 03/18/22 12:11 Freq: Status: Active Protocol: Document 07/17/22 13:03 LRN (Rec: 07/17/22 13:48 [facility] [id number]) Functional Tests 6 Minute Walk Test Distance 313 ft Device Used L SPC Comments Tennis shoes, cuing to not lock R knee into extension PT-OP-G Mobility & Gait Start: 03/18/22 12:11 Freq: Status: Active Protocol: Document 03/18/22 13:51 LRN (Rec: 03/18/22 14:42 LR [id number]) OP Mobility Evaluation Transfers Sit to Stand Stand to sit sometime uncontrolled. Stands greater on LLE. OP Gait Assessment Gait Gait Assistance Required: Standby Assistance Able to Maintain Weight Bearing Status Yes During Gait Assistive Devices Assistive Device Gait Belt,Straight Cane Orthotic/Prosthetic Devices or Brace: No Gait Deviations General Gait Pattern Decreased Stride Length,Flexed Trunk,Lateral Trunk Lean,Wide Based Gait Factors Limiting Gait Function Factors Limiting Gait Function Abnormal Tonal Influences, Decreased Strength,Limited Range of Motion,Poor Balance Comments Gait Comments Circumducts R LE, R drop foot, holds trunk in R rot, R arm held in flexion contracture. PT-OP-H Neuro Start: 03/18/22 12:11 Freq: Status: Active Protocol: Document 03/18/22 13:51 LRN (Rec: 03/18/22 14:42 [facility] [id number]) Sensation Evaluation Gross Sensation Gross Sensation WNL PT-OP-J Posture/Palpation/Skin Start: 03/18/22 12:11 Freq: Status: Active Protocol: Document 03/18/22 13:51 LRN (Rec: 03/18/22 14:42 LRN [id number]) Posture Evaluation Position Standing Head/C-Spine Posture Forward Head T-Spine Posture Rotation Right Shoulder Posture (L) Elevated Knee Posture (R) Genu Recurvatum Comments Posture Comments R handed. PT-OP-M Strength Start: 03/18/22 12:11 Freq: Status: Active Protocol: Document 05/30/22 14:31 LRN (Rec: 05/30/22 15:19 LRN [id number]) Ankle/Foot Strength Ankle and Foot Manual Muscle Testing Right Dorsiflexion (L4) 0 Zero Plantarflexion (S1) 2- Poor- Inversion 1 Trace Eversion (S1) 1 Trace Left Comments Generally 5/5 PT-OP-Q Treatments Start: 03/18/22 12:11 Freq: Status: Active Protocol: Document 07/22/22 13:02 LRN (Rec: 07/22/22 13:52 LRN [id number]) Therapeutic Exercises Sitting Exercises Knee flex Sitting Exercise Name knee flex - TB resisting and end-range assisting Side right Resistance AAROM needed support Equipment Used seated fully backmesh chair, and sit on end of plinth Reps/Minutes 8' Hamstring - medial/lateral/ both Comments cued level trunk/pelvis alignment Gait Training Gait Activity R Knee control Description Lifting R knee in strgt plane & limiting knee hyerext & circumduction. Device Used SPC Level of Assistance Moderate cuing to R knee and CGA, assist w/foot (toe lift off, R foot EV) Surface Level Distance/Duration 9 min Treatment Focus R knee control to prevent hyperextension, ankle DF, heel strike, toe off Comments verbal and physical cuing to keep R knee from hyper extending. (initial assess on 03/18/22: Gait speed: 20'/20 secs = 1.0 ft/sec.) (2nd assess on 05/08/22: Gt speed 20/14 secs = 1.42 ft/sec ). (3rd assess on 05/22/22: Gt speed 20'/12 secs = 1.67 ft/ sec). (07/17/22: 6' Walk Test - 313 ft). (07/22/22: Gt speed 1.0 ft/sec with pt focusing on gt mechanics). Manual Therapy Treatment Soft Tissue Mobilization Hip AD Body Location R hip Add Brevis Mobilization Type Strumming,Sustained Pressure, Trigger Point Release Intensity/Depth Moderate Body Position Supine Comments Good release of multiple active points , including active sites at pubic bone PT-OP-T Assessment and Plan Start: 03/18/22 12:11 Freq: Status: Active Protocol: Document 07/22/22 13:02 LRN (Rec: 07/22/22 13:52 LRN [id number]) Physical Therapy Assessment Goals Four Impairment Decreased standing dynamic balance. Impairment Pt requires railing UE support to step over objects. 03/21/22: [place] Balance Score is 44 (>35 is safe amb w/ assistive device, >45 is safe w/o assist device) Short Term Goal (STG) Pt will be able to walk on different surfaces safely ( grass, soft sand or gravel to mimic cobblestones) with CGA> SBA. 05/08/22: Walked on hard sand with spouse giving CGA. 05/22/22: Pt needs guarding and assist every ~10 steps, used to be every step. Walked on trampled grass by self for 10' and grass/gravel w/spouse giving CGA with 1-2x [place]. 06/06/22: [place] Balance Score is 46, safe amb w/o assist device. Pt demonstrating gait consistent with L CVA ( weakness and tone on RLE). STG Duration 07/21/21 progressing 05/22/22. Detention Goal (LTG) Pt will be able to step over 4 doorframe or other objects with use of SPC. 06/06/22: Pt able to step over 4 and 5 objects ( doorframe like) with use of SPC safely. LTG Duration 08/07/22 (06/06/22: MET GOAL) Three Impairment Decreased ability to walk up/ down inclines Impairment Requires arm hold assist when walking on an incline for safety. Short Term Goal (STG) Able to walk up/down a hill with CGA>SBA for safety. 05/08/22: Walking small incline on [place]. 05/22/22: Walking on [place] gentle hills (inclines/ declines) 4x. She can walk by self now. Spouse helps 1x each way, used to be all the time. Able to do inclines/ declines when weather is good and no wet leaves around. STG Duration 07/21/22 Goal partially met 05/22/22. Pulp Making Plant Operator Goal (LTG) Pt will be able to walk on [place] with SBA and an adaptive device for the RLE ( AFO) as needed. 05/08/22: Pt walking with spouse on [place] with SBA and ankle support. 05/22/22: Pt walking w/spoulse [place] with SBA> independent/cane/ankle support ). LTG Duration 08/07/22 (: MET GOAL). Two Impairment Decreased R LE strength Impairment Hyperextension of R knee with gait. R knee strength: Flex is 2/5, Ext is 4/5 and lacking ECC control with end-range extension. R ankle strength: Generally 1 /5 except ankle DF is 0/5. Short Term Goal (STG) Improve R knee and ankle strength 1/2 grade. 05/22/22: R knee flex 3-/5, Ext 4+/5. STG Duration 04/29/22 (05/22/22: MET GOAL ) Pulp Making Plant Operator Goal (LTG) Pt will demonstrate improved stability with gait with ability to limit R knee hyperextension during gait. 06/10/22: Pt needs phys & v cuing to prevent hyper ext of R knee during gait. 07/07/22: improved trunk alignment and decrease hip hike, better hip/ knee flexion RLE during gait post step con /ecc step ups. LTG Duration 08/07/22 progressing 07/07/22 One Impairment Lacks appropriate self care HEP. Impairment Gait speed: 1.33 ft/sec ( measured over 20' walking span ) Short Term Goal (STG) Pt will be independent and consistent with a self care HEP. 04/03/22: Mini squats & sit<> stand. 04/24/22: Asst'd ankle DF and IV; standing heel raises. 05/22/22: HEP: R knee strengthening ex for sitting flex/ext. 06/10/22: I/S pt in del knee flex and sitting hip flex/AD w/ankle EV strengthening STG Duration 04/29/22 progressing 05/22/22 Detention Goal (LTG) Improve gait speed. 05/08/22: Gt speed with cane, ankle support/GB/SBA, 20ft/14 secs = 1.42 ft/sec. 05/22/22: Gt speed w/cane/ ankle support/SBA is 20'/12 secs = 1.67 ft/sec. 07/22/22: Gt speed w/cane/ ankle support/SBA/pt concentrating on gt mechanics is 20'/20 secs = 1.0 ft/sec. LTG Duration 08/07/22 progressing 05/22/22 , worse 07/22/22 due to pt focus on mechanics Assessment Summary Assessment Gt speed worse as pt was concentrating on proper gait mechanics (R LE: not locking knee, heel strike, toe off). Pt able to control knee hyper ext after training and was able to walk out of clinic keeping R knee slightly flexed . Physical Therapy Plan Frequency and Duration Frequency of Treatment 2x/Week Duration of treatment (weeks) 12 Plan of Care Start Date 05/22/22 Plan of Care End Date 08/07/22 Next Visit Focus/Plan Next Note Type Treatment Note Next Visit Plan Progress note in 2 visits. Repeat step ups, update progress goals. Add hurdles. Recheck: Pt will talk to jesse YANG in June about possible need for R AFO for walking. POC: L CVA rehab. R knee/ankle (avoiding increasing R knee hyper ext tone) & core & pelvic strengthening, and ROM R ankle ex's (EV, cont DF), Balance training for weight shifting and ambulation on incline/decline and uneven surfaces. Balance/gait ex.
--- NOTE | 2022-07-28 13:45 | PT.OTN ---
Current Diagnoses Hyperlipidemia, unspecified (07/28/22) Essential (primary) hypertension (07/28/22) Muscle weakness (generalized) (07/28/22) Other specified disorders of muscle (07/28/22) Unsteadiness on feet (07/28/22) Other abnormalities of gait and mobility (07/28/22) Physical Therapy Treatment Note PT-OP-A Visit Information Start: 03/18/22 12:11 Freq: Status: Active Protocol: Document 07/28/22 13:05 SP (Rec: 07/28/22 13:50 SP [id number]) Out-Patient Physical Therapy Visit Information Visit Information Visit Type Treatment Note Visit Start Time 13:05 Visit Stop Time 13:45 Total Visit Minutes 40 Visit Number 18 Number of SUPERVIS[employer] PILOT Visits 1 Evaluation Information Evaluation Date 03/18/22 Precautions Precautions Osteoporosis, history of falls , HBP controlled by meds. PT-OP-B Current Condition Start: 03/18/22 12:11 Freq: Status: Active Protocol: Document 03/18/22 13:51 LRN (Rec: 03/18/22 14:42 LRN [id number]) Current Condition History of Current Condition Onset Date A few weeks ago referred for stroke rehab at pt request. L CVA 07/22/18 Current Complaints Hasn't had therapy in a yr. 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 States since stroke she has had therapy for a few months each year. Referred by Dr Jose Mcginnis at [facility], who will no longer be following her because he was a fill in physician. Has follow up visit with a physician in June 2022, who will be her primary care physician. Pt reports her walking is still unsteady and her R hand is useless. Pt will be receiving PT & OT. States hamstrings are begining to improve, feeling in her feet is improving, and the inner R ankle ms are getting stronger, so she is not rolling her R ankle any more. Pt complains she doesn't have big toes to help her balance because they curl in. If she steps on something unevenly then it causes her to loose her balance. When walking she looks down at the ground, and if she hears someone behind her, it causes her to tense up and decreases her balance ability because it is very distracting to her. Her balance when statioinary is good, but dynamically is not good. Prior Treatments and Tests See development section below. Developmental History Developmental History She continues to make progress and feels therapy seems to help. Stoke in 07/22/2018 in [place]. Was in intensive care a few days, hospital a week and rehab in for 1 month. Home health the following month and outpatient OT/PT from September-Feb 2019. Started therapy again 06/2019 to 10/2019. Fall 08/03/19 with concusion. In 2020 had outpt PT 07/12 to 11/09. Treatment Goals Patient/Caregiver Goals Pt goals: Able to walk up/down hill. Currently she needs to hand onto someone if she is on a incline. Wants to walk on [place] without help. Wants to walk on different surfaces safely (grass, soft sand or gravel, cobblestones). Improve gait stability and speed. Able to step over 4 doorframe or other objects. Prior Functional Status Baseline Function- ADL's Independent Baseline Function- Mobility Independent Baseline Function- Work/School Homemaker. Current Functional Impairments (Reported) Functional Limitations- ADL's Past 2 months walks 1.25 miles 6 days/week. Other exercise is housework. Before walking on trails was doing modified yoga and Pilates exercise daily. Functional Limitations- Mobility/Gait Ambs with SPC, 1.25 miles with cane with spouse assist with inclines and declines. Personal Factors Other Personal Factors That May Effect Pt lives with spouse and son Therapy/Recovery who is a high functioning adult with autism, osteoporosis, intracranial meningioma. PT-OP-C Subjective Start: 03/18/22 12:11 Freq: Status: Active Protocol: Document 07/28/22 13:05 SP (Rec: 07/28/22 13:50 SP [id number]) OP-PT Subjective Patient Comments Patient Comments Pt reports little discomfort medial R ankle but has been better about knee flexion during advancement into midstance so wondering if the muscles are working more and why feeling this area. PT-OP-D Balance Start: 03/18/22 12:11 Freq: Status: Active Protocol: Document 06/06/22 14:37 LRN (Rec: 06/06/22 17:14 LRN [id number]) [place] Balance Assessment Evaluation Sitting to Standing Ability Independent w/out Hands Unsupported Stance Safely- 2 minutes Sitting Unsupported, Feet on Floor Safely- 2 minutes Standing to Sitting Ability Safely, Minimal Hand Use Transfer Ability Safely, Minimal Hand Use Unsupported Stance- Eyes Closed Safely, 10 seconds Unsupported Stance- Eyes Open Independent, 1 minute Reaching Forward Standing Confidently, 10 inches Pick- Up Object From Floor Independent/Safe Look Behind Shoulder - Standing Shifts Weight Well Turning 360 Degrees Turns slowly, but safely Unsupported Stance, Alternating Feet on (I)- 8 Steps in 20 secs Stair Unsupported Tandem Stance Balance Lost- Step/Stand Unilateral Leg Stance Unable,assist to not fall Total Score [place] Total Score (out of 56 points) 46 [place] Impairment Rating 1 to 19% Impaired (Score 45-55 ) PT-OP-E Functional Tests Start: 03/18/22 12:11 Freq: Status: Active Protocol: Document 07/17/22 13:03 LRN (Rec: 07/17/22 13:48 [facility] [id number]) Functional Tests 6 Minute Walk Test Distance 313 ft Device Used L SPC Comments Tennis shoes, cuing to not lock R knee into extension PT-OP-G Mobility & Gait Start: 03/18/22 12:11 Freq: Status: Active Protocol: Document 03/18/22 13:51 LRN (Rec: 03/18/22 14:42 LRN [id number]) OP Mobility Evaluation Transfers Sit to Stand Stand to sit sometime uncontrolled. Stands greater on LLE. OP Gait Assessment Gait Gait Assistance Required: Standby Assistance Able to Maintain Weight Bearing Status Yes During Gait Assistive Devices Assistive Device Gait Belt,Straight Cane Orthotic/Prosthetic Devices or Brace: No Gait Deviations General Gait Pattern Decreased Stride Length,Flexed Trunk,Lateral Trunk Lean,Wide Based Gait Factors Limiting Gait Function Factors Limiting Gait Function Abnormal Tonal Influences, Decreased Strength,Limited Range of Motion,Poor Balance Comments Gait Comments Circumducts R LE, R drop foot, holds trunk in R rot, R arm held in flexion contracture. PT-OP-H Neuro Start: 03/18/22 12:11 Freq: Status: Active Protocol: Document 03/18/22 13:51 LRN (Rec: 03/18/22 14:42 [facility] [id number]) Sensation Evaluation Gross Sensation Gross Sensation WNL PT-OP-J Posture/Palpation/Skin Start: 03/18/22 12:11 Freq: Status: Active Protocol: Document 03/18/22 13:51 LRN (Rec: 03/18/22 14:42 LRN [id number]) Posture Evaluation Position Standing Head/C-Spine Posture Forward Head T-Spine Posture Rotation Right Shoulder Posture (L) Elevated Knee Posture (R) Genu Recurvatum Comments Posture Comments R handed. PT-OP-M Strength Start: 03/18/22 12:11 Freq: Status: Active Protocol: Document 05/30/22 14:31 LRN (Rec: 05/30/22 15:19 LRN [id number]) Ankle/Foot Strength Ankle and Foot Manual Muscle Testing Right Dorsiflexion (L4) 0 Zero Plantarflexion (S1) 2- Poor- Inversion 1 Trace Eversion (S1) 1 Trace Left Comments Generally 5/5 PT-OP-Q Treatments Start: 03/18/22 12:11 Freq: Status: Active Protocol: Document 07/28/22 13:05 SP (Rec: 07/28/22 13:50 SP [id number]) Therapeutic Exercises Sitting Exercises Knee flex Sitting Exercise Name knee flex - TB resisting and end-range assisting Side right Resistance TB #1 (discussed anchor bed leg/cradenza) Equipment Used seated fully backmesh chair therapist anchor Reps/Minutes 8' Hamstring - medial/lateral/ both Comments cued level trunk/pelvis alignment Active assisted R ankle DF Sitting Exercise Name Active eccentric ankle DF Side right Resistance TB #1> #2 Reps/Minutes x10 Comments good eccentric Df Gait Training Gait Activity uneven incline/decline Description uneven surface gait Device Used L SPC Level of Assistance CGA-5-10%A Surface blue mat, 2 overlapping black yoga mats with a fold, 2 wood wedge incline Distance/Duration 2 laps Treatment Focus WB onto RLE soft knee, stability over uneven surface, incline/decline wedge Comments improved soft R knee WB midstance>glut push off, self corrections R ankle fwd positioning as advanced, foot clearance (R foot caught folded mat, repositioned and increase hip/knee flexion clear), cues for SPC positioning at times slight advance feet and and controlled stable steps COG over SHEFALI not to big steps incline/decline. Suggested use gait belt on walks for support [place] incline/ decline support vs use R arm for self corrections then support RUE on his dredge deckhand if needed. R Knee control Description Lifting R knee in strgt plane & limiting knee hyerext & circumduction. Device Used SPC Level of Assistance Moderate cuing to R knee and CGA, assist w/foot (toe lift off, R foot EV) Surface Level Distance/Duration 9 min Treatment Focus R knee control to prevent hyperextension, ankle DF, heel strike, toe off Comments verbal and physical cuing to keep R knee from hyper extending. (initial assess on 03/18/22: Gait speed: 20'/20 secs = 1.0 ft/sec.) (2nd assess on 05/08/22: Gt speed 20/14 secs = 1.42 ft/sec ). (3rd assess on 05/22/22: Gt speed 20'/12 secs = 1.67 ft/ sec). (07/17/22: 6' Walk Test - 313 ft). (07/22/22: Gt speed 1.0 ft/sec with pt focusing on gt mechanics). Neuro Re-Education Treatment Balance Activities uneven surface Details (pre dynamic uneven surface gait) Surface 4 oval cushions Equipment L HR or BEER STILL RUNNER COMPOUNDER Min A Reps/Duration 10 ft x3 laps Comments stagger stepping, cued R soft knee midstance improved glut fac as push off wt shift fwd onto LLE. PT-OP-T Assessment and Plan Start: 03/18/22 12:11 Freq: Status: Active Protocol: Document 07/28/22 13:05 SP (Rec: 07/28/22 13:50 SP [id number]) Physical Therapy Assessment Goals Four Impairment Decreased standing dynamic balance. Impairment Pt requires railing UE support to step over objects. 03/21/22: [place] Balance Score is 44 (>35 is safe amb w/ assistive device, >45 is safe w/o assist device) Short Term Goal (STG) Pt will be able to walk on different surfaces safely ( grass, soft sand or gravel to mimic cobblestones) with CGA> SBA. 05/08/22: Walked on hard sand with spouse giving CGA. 05/22/22: Pt needs guarding and assist every ~10 steps, used to be every step. Walked on trampled grass by self for 10' and grass/gravel w/spouse giving CGA with 1-2x [place]. 06/06/22: [place] Balance Score is 46, safe amb w/o assist device. Pt demonstrating gait consistent with L CVA ( weakness and tone on RLE). STG Duration 07/21/21 progressing 05/22/22. Senior Care Goal (LTG) Pt will be able to step over 4 doorframe or other objects with use of SPC. 06/06/22: Pt able to step over 4 and 5 objects ( doorframe like) with use of SPC safely. LTG Duration 08/07/22 (06/06/22: MET GOAL) Three Impairment Decreased ability to walk up/ down inclines Impairment Requires arm hold assist when walking on an incline for safety. Short Term Goal (STG) Able to walk up/down a hill with CGA>SBA for safety. 05/08/22: Walking small incline on [place]. 05/22/22: Walking on [place] gentle hills (inclines/ declines) 4x. She can walk by self now. Spouse helps 1x each way, used to be all the time. Able to do inclines/ declines when weather is good and no wet leaves around. 07/28/22: [place] hold hand for stability decline but ok to do. Tx able ascend/descend uneven double mats/wedges CG/ MinAx1 w/SPC STG Duration 07/21/22 Goal partially met 07/28/22. Senior Care Goal (LTG) Pt will be able to walk on [place] with SBA and an adaptive device for the RLE ( AFO) as needed. 05/08/22: Pt walking with spouse on [place] with SBA and ankle support. 05/22/22: Pt walking w/spoulse [place] with SBA> independent/cane/ankle support ). LTG Duration 08/07/22 (: MET GOAL). Two Impairment Decreased R LE strength Impairment Hyperextension of R knee with gait. R knee strength: Flex is 2/5, Ext is 4/5 and lacking ECC control with end-range extension. R ankle strength: Generally 1 /5 except ankle DF is 0/5. Short Term Goal (STG) Improve R knee and ankle strength 1/2 grade. 05/22/22: R knee flex 3-/5, Ext 4+/5. STG Duration 04/29/22 (05/22/22: MET GOAL ) Network Security Analyst Goal (LTG) Pt will demonstrate improved stability with gait with ability to limit R knee hyperextension during gait. 06/10/22: Pt needs phys & v cuing to prevent hyper ext of R knee during gait. 07/07/22: improved trunk alignment and decrease hip hike, better hip/ knee flexion RLE during gait post step con /ecc step ups 07/28/22: improved R knee soft knee flex midstance for LLE advancement w/use SPC in LLE. LTG Duration 08/07/22 progressing 07/28/22 One Impairment Lacks appropriate self care HEP. Impairment Gait speed: 1.33 ft/sec ( measured over 20' walking span ) Short Term Goal (STG) Pt will be independent and consistent with a self care HEP. 04/03/22: Mini squats & sit<> stand. 04/24/22: Asst'd ankle DF and IV; standing heel raises. 05/22/22: HEP: R knee strengthening ex for sitting flex/ext. 06/10/22: I/S pt in del knee flex and sitting hip flex/AD w/ankle EV strengthening STG Duration 04/29/22 progressing 05/22/22 Network Security Analyst Goal (LTG) Improve gait speed. 05/08/22: Gt speed with cane, ankle support/GB/SBA, 20ft/14 secs = 1.42 ft/sec. 05/22/22: Gt speed w/cane/ ankle support/SBA is 20'/12 secs = 1.67 ft/sec. 07/22/22: Gt speed w/cane/ ankle support/SBA/pt concentrating on gt mechanics is 20'/20 secs = 1.0 ft/sec. LTG Duration 08/07/22 progressing 05/22/22 , worse 07/22/22 due to pt focus on mechanics Assessment Summary Assessment Pt improved eccentric DF with increased resistance HEP review and better understanding can anchor for self I. Pt improved confidence with support uneven surface gait through gait belt and self uses L SPC or rail over uneven incline/ decline to assimulate grass, CG-5%A. 1 foot caught mat but relifted foot and clearance CG -5%A. Physical Therapy Plan Frequency and Duration Frequency of Treatment 2x/Week Duration of treatment (weeks) 12 Plan of Care Start Date 05/22/22 Plan of Care End Date 08/07/22 Therapeutic Interventions Therapeutic Interventions Gait Training,Home Exercise Program,Neuromuscular Re- education,Patient/Caregiver Education,Self-Care/Home Management,Therapeutic Exercises Modalities Cold Pack/Ice Massage,Hot Packs Next Visit Focus/Plan Next Note Type Treatment Note Next Visit Plan Progress note in 2 visits. Repeat step ups, update progress goals. Add hurdles. Recheck: Pt will talk to new MD in June about possible need for R AFO for walking. POC: L CVA rehab. R knee/ankle (avoiding increasing R knee hyper ext tone) & core & pelvic strengthening, and ROM R ankle ex's (EV, cont DF), Balance training for weight shifting and ambulation on incline/decline and uneven surfaces. Balance/gait ex.
--- NOTE | 2022-08-05 16:41 | PT.OTN ---
Current Diagnoses Hyperlipidemia, unspecified (08/05/22) Essential (primary) hypertension (08/05/22) Muscle weakness (generalized) (08/05/22) Other specified disorders of muscle (08/05/22) Unsteadiness on feet (08/05/22) Other abnormalities of gait and mobility (08/05/22) Physical Therapy Treatment Note PT-OP-A Visit Information Start: 03/18/22 12:11 Freq: Status: Active Protocol: Document 08/05/22 14:38 LRN (Rec: 08/05/22 15:20 LRN [id number]) Out-Patient Physical Therapy Visit Information Visit Information Visit Type Treatment Note Visit Start Time 14:38 Visit Stop Time 15:18 Total Visit Minutes 40 Visit Number 19 PT-OP-B Current Condition Start: 03/18/22 12:11 Freq: Status: Active Protocol: Document 03/18/22 13:51 LRN (Rec: 03/18/22 14:42 LRN [id number]) Current Condition History of Current Condition Onset Date A few weeks ago referred for stroke rehab at pt request. L CVA 07/22/18 Current Complaints Hasn't had therapy in a yr. 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 States since stroke she has had therapy for a few months each year. Referred by Dr Jose Mcginnis at [facility], who will no longer be following her because he was a fill in physician. Has follow up visit with a physician in June 2022, who will be her primary care physician. Pt reports her walking is still unsteady and her R hand is useless. Pt will be receiving PT & OT. States hamstrings are begining to improve, feeling in her feet is improving, and the inner R ankle ms are getting stronger, so she is not rolling her R ankle any more. Pt complains she doesn't have big toes to help her balance because they curl in. If she steps on something unevenly then it causes her to loose her balance. When walking she looks down at the ground, and if she hears someone behind her, it causes her to tense up and decreases her balance ability because it is very distracting to her. Her balance when statioinary is good, but dynamically is not good. Prior Treatments and Tests See development section below. Developmental History Developmental History She continues to make progress and feels therapy seems to help. Stoke in 07/22/2018 in [place]. Was in intensive care a few days, hospital a week and rehab inpt for 1 month. Home health the following month and outpatient OT/PT from September-Feb 2019. Started therapy again 06/2019 to 10/2019. Fall 08/03/19 with concusion. In 2020 had outpt PT 07/12 to 11/09. Treatment Goals Patient/Caregiver Goals Pt goals: Able to walk up/down hill. Currently she needs to hand onto someone if she is on a incline. Wants to walk on [place] without help. Wants to walk on different surfaces safely (grass, soft sand or gravel, cobblestones). Improve gait stability and speed. Able to step over 4 doorframe or other objects. Prior Functional Status Baseline Function- ADL's Independent Baseline Function- Mobility Independent Baseline Function- Work/School Homemaker. Current Functional Impairments (Reported) Functional Limitations- ADL's Past 2 months walks 1.25 miles 6 days/week. Other exercise is housework. Before walking on trails was doing modified yoga and Pilates exercise daily. Functional Limitations- Mobility/Gait Ambs with SPC, 1.25 miles with cane with spouse assist with inclines and declines. Personal Factors Other Personal Factors That May Effect Pt lives with spouse and son Therapy/Recovery who is a high functioning adult with autism, osteoporosis, intracranial meningioma. PT-OP-C Subjective Start: 03/18/22 12:11 Freq: Status: Active Protocol: Document 08/05/22 14:38 LRN (Rec: 08/05/22 15:20 LRN [id number]) OP-PT Subjective Patient Comments Patient Comments Was trying to walk with lifting the heel so the toes are the last on the floor and she noticed the tone kicks in. She has noticed that her inner lower leg and calf are stronger and she thinks it has helped her with her walking. States she has been walking up hill by herself. PT-OP-D Balance Start: 03/18/22 12:11 Freq: Status: Active Protocol: Document 06/06/22 14:37 LRN (Rec: 06/06/22 17:14 LRN [id number]) [place] Balance Assessment Evaluation Sitting to Standing Ability Independent w/out Hands Unsupported Stance Safely- 2 minutes Sitting Unsupported, Feet on Floor Safely- 2 minutes Standing to Sitting Ability Safely, Minimal Hand Use Transfer Ability Safely, Minimal Hand Use Unsupported Stance- Eyes Closed Safely, 10 seconds Unsupported Stance- Eyes Open Independent, 1 minute Reaching Forward Standing Confidently, 10 inches Pick- Up Object From Floor Independent/Safe Look Behind Shoulder - Standing Shifts Weight Well Turning 360 Degrees Turns slowly, but safely Unsupported Stance, Alternating Feet on (I)- 8 Steps in 20 secs Stair Unsupported Tandem Stance Balance Lost- Step/Stand Unilateral Leg Stance Unable,assist to not fall Total Score [place] Total Score (out of 56 points) 46 [place] Impairment Rating 1 to 19% Impaired (Score 45-55 ) PT-OP-E Functional Tests Start: 03/18/22 12:11 Freq: Status: Active Protocol: Document 07/17/22 13:03 LRN (Rec: 07/17/22 13:48 [facility] [id number]) Functional Tests 6 Minute Walk Test Distance 313 ft Device Used L SPC Comments Tennis shoes, cuing to not lock R knee into extension PT-OP-G Mobility & Gait Start: 03/18/22 12:11 Freq: Status: Active Protocol: Document 03/18/22 13:51 LRN (Rec: 03/18/22 14:42 LRN [id number]) OP Mobility Evaluation Transfers Sit to Stand Stand to sit sometime uncontrolled. Stands greater on LLE. OP Gait Assessment Gait Gait Assistance Required: Standby Assistance Able to Maintain Weight Bearing Status Yes During Gait Assistive Devices Assistive Device Gait Belt,Straight Cane Orthotic/Prosthetic Devices or Brace: No Gait Deviations General Gait Pattern Decreased Stride Length,Flexed Trunk,Lateral Trunk Lean,Wide Based Gait Factors Limiting Gait Function Factors Limiting Gait Function Abnormal Tonal Influences, Decreased Strength,Limited Range of Motion,Poor Balance Comments Gait Comments Circumducts R LE, R drop foot, holds trunk in R rot, R arm held in flexion contracture. PT-OP-H Neuro Start: 03/18/22 12:11 Freq: Status: Active Protocol: Document 03/18/22 13:51 LRN (Rec: 03/18/22 14:42 [facility] [id number]) Sensation Evaluation Gross Sensation Gross Sensation WNL PT-OP-J Posture/Palpation/Skin Start: 03/18/22 12:11 Freq: Status: Active Protocol: Document 03/18/22 13:51 LRN (Rec: 03/18/22 14:42 LRN [id number]) Posture Evaluation Position Standing Head/C-Spine Posture Forward Head T-Spine Posture Rotation Right Shoulder Posture (L) Elevated Knee Posture (R) Genu Recurvatum Comments Posture Comments R handed. PT-OP-M Strength Start: 03/18/22 12:11 Freq: Status: Active Protocol: Document 05/30/22 14:31 LRN (Rec: 05/30/22 15:19 LRN [id number]) Ankle/Foot Strength Ankle and Foot Manual Muscle Testing Right Dorsiflexion (L4) 0 Zero Plantarflexion (S1) 2- Poor- Inversion 1 Trace Eversion (S1) 1 Trace Left Comments Generally 5/5 PT-OP-Q Treatments Start: 03/18/22 12:11 Freq: Status: Active Protocol: Document 08/05/22 14:38 LRN (Rec: 08/05/22 15:20 LRN [id number]) Cardio Equipment Recumbent Bicycle Duration (Minutes) 8 Resistance 1 Seat Position 1 Other R foot strapped to pedal, Lifting legs vx pushing legs. Therapeutic Exercises Standing Exercises Turning Standing Exercise Name 360 & 180 deg's Comments 360 deg's turn: 7 secs left, 6 secs right. 180 stepping fwd while turning. Gait Training Gait Activity R Knee control Description R knee flex before toe off and heel strike, incr'd WBing in RLE. Device Used SPC/Railing Level of Assistance Constant cuing to R knee and CGA, assist w/foot (toe lift off, R foot EV) Surface Level Distance/Duration 23 min Treatment Focus R knee control for ankle DF w/ heel strike, toe off/knee flex , no R hyperext Comments verbal and physical cuing to keep R knee from hyper extending. (initial assess on 03/18/22: Gait speed: 20'/20 secs = 1.0 ft/sec.) (2nd assess on 05/08/22: Gt speed 20/14 secs = 1.42 ft/sec ). (3rd assess on 05/22/22: Gt speed 20'/12 secs = 1.67 ft/ sec). (07/17/22: 6' Walk Test - 313 ft). (07/22/22: Gt speed 1.0 ft/sec with pt focusing on gt mechanics). PT-OP-T Assessment and Plan Start: 03/18/22 12:11 Freq: Status: Active Protocol: Document 08/05/22 14:38 LRN (Rec: 08/05/22 15:20 LRN [id number]) Physical Therapy Assessment Goals Four Impairment Decreased standing dynamic balance. Impairment Pt requires railing UE support to step over objects. 03/21/22: [place] Balance Score is 44 (>35 is safe amb w/ assistive device, >45 is safe w/o assist device) Short Term Goal (STG) Pt will be able to walk on different surfaces safely ( grass, soft sand or gravel to mimic cobblestones) with CGA> SBA. 05/08/22: Walked on hard sand with spouse giving CGA. 05/22/22: Pt needs guarding and assist every ~10 steps, used to be every step. Walked on trampled grass by self for 10' and grass/gravel w/spouse giving CGA with 1-2x [place]. 06/06/22: [place] Balance Score is 46, safe amb w/o assist device. Pt demonstrating gait consistent with L CVA ( weakness and tone on RLE). STG Duration 07/21/21 progressing 05/22/22. Management Trainee Marketing Goal (LTG) Pt will be able to step over 4 doorframe or other objects with use of SPC. 06/06/22: Pt able to step over 4 and 5 objects ( doorframe like) with use of SPC safely. LTG Duration 08/07/22 (06/06/22: MET GOAL) Three Impairment Decreased ability to walk up/ down inclines Impairment Requires arm hold assist when walking on an incline for safety. Short Term Goal (STG) Able to walk up/down a hill with CGA>SBA for safety. 05/08/22: Walking small incline on [place]. 05/22/22: Walking on [place] gentle hills (inclines/ declines) 4x. She can walk by self now. Spouse helps 1x each way, used to be all the time. Able to do inclines/ declines when weather is good and no wet leaves around. 07/28/22: [place] hold hand for stability decline but ok to do. Tx able ascend/descend uneven double mats/wedges CG/ MinAx1 w/SPC STG Duration 07/21/22 Goal partially met 07/28/22. Fdc Goal (LTG) Pt will be able to walk on [place] with SBA and an adaptive device for the RLE ( AFO) as needed. 05/08/22: Pt walking with spouse on [place] with SBA and ankle support. 05/22/22: Pt walking w/spoulse [place] with SBA> independent/cane/ankle support ). LTG Duration 08/07/22 (: MET GOAL). Two Impairment Decreased R LE strength Impairment Hyperextension of R knee with gait. R knee strength: Flex is 2/5, Ext is 4/5 and lacking ECC control with end-range extension. R ankle strength: Generally 1 /5 except ankle DF is 0/5. Short Term Goal (STG) Improve R knee and ankle strength 1/2 grade. 05/22/22: R knee flex 3-/5, Ext 4+/5. STG Duration 04/29/22 (05/22/22: MET GOAL ) Management Trainee Marketing Goal (LTG) Pt will demonstrate improved stability with gait with ability to limit R knee hyperextension during gait. 06/10/22: Pt needs phys & v cuing to prevent hyper ext of R knee during gait. 07/07/22: improved trunk alignment and decrease hip hike, better hip/ knee flexion RLE during gait post step con /ecc step ups 07/28/22: improved R knee soft knee flex midstance for LLE advancement w/use SPC in LLE. 08/05/22: Pt perceives stability with gait when keeping R knee slightly flexed on stance phase. LTG Duration 08/07/22 (08/05/22: MET GOAL) One Impairment Lacks appropriate self care HEP. Impairment Gait speed: 1.33 ft/sec ( measured over 20' walking span ) Short Term Goal (STG) Pt will be independent and consistent with a self care HEP. 04/03/22: Mini squats & sit<> stand. 04/24/22: Asst'd ankle DF and IV; standing heel raises. 05/22/22: HEP: R knee strengthening ex for sitting flex/ext. 06/10/22: I/S pt in del knee flex and sitting hip flex/AD w/ankle EV strengthening 08/05/22: Pt appears to always have a good understanding of home ex's and is able to recall ex's issued. STG Duration 04/29/22 (08/05/22: MET GOAL) Management Trainee Marketing Goal (LTG) Improve gait speed. 05/08/22: Gt speed with cane, ankle support/GB/SBA, 20ft/14 secs = 1.42 ft/sec. 05/22/22: Gt speed w/cane/ ankle support/SBA is 20'/12 secs = 1.67 ft/sec. 07/22/22: Gt speed w/cane/ ankle support/SBA/pt concentrating on gt mechanics is 20'/20 secs = 1.0 ft/sec. LTG Duration 08/07/22 progressing 05/22/22 , worse 07/22/22 due to pt focus on mechanics Assessment Summary Assessment Pt was able to increase WBing in RLE with gait and for short period of time showed full WBing w/mod A for balance with gait w/o AD. When pt passively flexes R knee prior to toe off she appears to be able to avoid R knee hyperextension on stance phase . Pt feels secure with R knee slightly flexed with gait, showing improvement in stability with gait. Physical Therapy Plan Frequency and Duration Frequency of Treatment 2x/Week Duration of treatment (weeks) 12 Plan of Care Start Date 05/22/22 Plan of Care End Date 08/07/22 Next Visit Focus/Plan Next Note Type Treatment Note Next Visit Plan Progress note next visit. Repeat step ups, update progress goals. Add hurdles to improve WBing through RLE safely, monitoring WBing through LUE. Recheck: Pt will talk to jesse YANG in June about possible need for R AFO for walking. POC: L CVA rehab. R knee/ankle (avoiding increasing R knee hyper ext tone) & core & pelvic strengthening, and ROM R ankle ex's (EV, cont DF), Balance training for weight shifting onto RLE and ambulation on incline/decline and uneven surfaces. Balance/gait ex.
--- NOTE | 2022-08-08 17:29 | PT.OPPN ---
Current Diagnoses Hyperlipidemia, unspecified (08/05/22) Essential (primary) hypertension (08/05/22) Muscle weakness (generalized) (08/05/22) Other specified disorders of muscle (08/05/22) Unsteadiness on feet (08/05/22) Other abnormalities of gait and mobility (08/05/22) Physical Therapy Progress Note PT-OP-A Visit Information Start: 03/18/22 12:11 Freq: Status: Active Protocol: Document 08/05/22 14:38 LRN (Rec: 08/05/22 15:20 LRN [id number]) Out-Patient Physical Therapy Visit Information Visit Information Visit Type Treatment Note Visit Start Time 14:38 Visit Stop Time 15:18 Total Visit Minutes 40 Visit Number 19 PT-OP-B Current Condition Start: 03/18/22 12:11 Freq: Status: Active Protocol: Document 03/18/22 13:51 LRN (Rec: 03/18/22 14:42 LRN [id number]) Current Condition History of Current Condition Onset Date A few weeks ago referred for stroke rehab at pt request. L CVA 07/22/18 Current Complaints Hasn't had therapy in a yr. 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 States since stroke she has had therapy for a few months each year. Referred by Dr Jose Mcginnis at [facility], who will no longer be following her because he was a fill in physician. Has follow up visit with a physician in June 2022, who will be her primary care physician. Pt reports her walking is still unsteady and her R hand is useless. Pt will be receiving PT & OT. States hamstrings are begining to improve, feeling in her feet is improving, and the inner R ankle ms are getting stronger, so she is not rolling her R ankle any more. Pt complains she doesn't have big toes to help her balance because they curl in. If she steps on something unevenly then it causes her to loose her balance. When walking she looks down at the ground, and if she hears someone behind her, it causes her to tense up and decreases her balance ability because it is very distracting to her. Her balance when statioinary is good, but dynamically is not good. Prior Treatments and Tests See development section below. Developmental History Developmental History She continues to make progress and feels therapy seems to help. Stoke in 07/22/2018 in [place]. Was in intensive care a few days, hospital a week and rehab inpt for 1 month. Home health the following month and outpatient OT/PT from September-Feb 2019. Started therapy again 06/2019 to 10/2019. Fall 08/03/19 with concusion. In 2020 had outpt PT 07/12 to 11/09. Treatment Goals Patient/Caregiver Goals Pt goals: Able to walk up/down hill. Currently she needs to hand onto someone if she is on a incline. Wants to walk on [place] without help. Wants to walk on different surfaces safely (grass, soft sand or gravel, cobblestones). Improve gait stability and speed. Able to step over 4 doorframe or other objects. Prior Functional Status Baseline Function- ADL's Independent Baseline Function- Mobility Independent Baseline Function- Work/School Homemaker. Current Functional Impairments (Reported) Functional Limitations- ADL's Past 2 months walks 1.25 miles 6 days/week. Other exercise is housework. Before walking on trails was doing modified yoga and Pilates exercise daily. Functional Limitations- Mobility/Gait Ambs with SPC, 1.25 miles with cane with spouse assist with inclines and declines. Personal Factors Other Personal Factors That May Effect Pt lives with spouse and son Therapy/Recovery who is a high functioning adult with autism, osteoporosis, intracranial meningioma. PT-OP-C Subjective Start: 03/18/22 12:11 Freq: Status: Active Protocol: Document 08/05/22 14:38 LRN (Rec: 08/05/22 15:20 LRN [id number]) OP-PT Subjective Patient Comments Patient Comments Was trying to walk with lifting the heel so the toes are the last on the floor and she noticed the tone kicks in. She has noticed that her inner lower leg and calf are stronger and she thinks it has helped her with her walking. States she has been walking up hill by herself. PT-OP-D Balance Start: 03/18/22 12:11 Freq: Status: Active Protocol: Document 06/06/22 14:37 LRN (Rec: 06/06/22 17:14 LRN [id number]) [place] Balance Assessment Evaluation Sitting to Standing Ability Independent w/out Hands Unsupported Stance Safely- 2 minutes Sitting Unsupported, Feet on Floor Safely- 2 minutes Standing to Sitting Ability Safely, Minimal Hand Use Transfer Ability Safely, Minimal Hand Use Unsupported Stance- Eyes Closed Safely, 10 seconds Unsupported Stance- Eyes Open Independent, 1 minute Reaching Forward Standing Confidently, 10 inches Pick- Up Object From Floor Independent/Safe Look Behind Shoulder - Standing Shifts Weight Well Turning 360 Degrees Turns slowly, but safely Unsupported Stance, Alternating Feet on (I)- 8 Steps in 20 secs Stair Unsupported Tandem Stance Balance Lost- Step/Stand Unilateral Leg Stance Unable,assist to not fall Total Score [place] Total Score (out of 56 points) 46 [place] Impairment Rating 1 to 19% Impaired (Score 45-55 ) PT-OP-E Functional Tests Start: 03/18/22 12:11 Freq: Status: Active Protocol: Document 07/17/22 13:03 LRN (Rec: 07/17/22 13:48 [facility] [id number]) Functional Tests 6 Minute Walk Test Distance 313 ft Device Used L SPC Comments Tennis shoes, cuing to not lock R knee into extension PT-OP-G Mobility & Gait Start: 03/18/22 12:11 Freq: Status: Active Protocol: Document 03/18/22 13:51 LRN (Rec: 03/18/22 14:42 LRN [id number]) OP Mobility Evaluation Transfers Sit to Stand Stand to sit sometime uncontrolled. Stands greater on LLE. OP Gait Assessment Gait Gait Assistance Required: Standby Assistance Able to Maintain Weight Bearing Status Yes During Gait Assistive Devices Assistive Device Gait Belt,Straight Cane Orthotic/Prosthetic Devices or Brace: No Gait Deviations General Gait Pattern Decreased Stride Length,Flexed Trunk,Lateral Trunk Lean,Wide Based Gait Factors Limiting Gait Function Factors Limiting Gait Function Abnormal Tonal Influences, Decreased Strength,Limited Range of Motion,Poor Balance Comments Gait Comments Circumducts R LE, R drop foot, holds trunk in R rot, R arm held in flexion contracture. PT-OP-H Neuro Start: 03/18/22 12:11 Freq: Status: Active Protocol: Document 03/18/22 13:51 LRN (Rec: 03/18/22 14:42 [facility] [id number]) Sensation Evaluation Gross Sensation Gross Sensation WNL PT-OP-J Posture/Palpation/Skin Start: 03/18/22 12:11 Freq: Status: Active Protocol: Document 03/18/22 13:51 LRN (Rec: 03/18/22 14:42 LRN [id number]) Posture Evaluation Position Standing Head/C-Spine Posture Forward Head T-Spine Posture Rotation Right Shoulder Posture (L) Elevated Knee Posture (R) Genu Recurvatum Comments Posture Comments R handed. PT-OP-M Strength Start: 03/18/22 12:11 Freq: Status: Active Protocol: Document 05/30/22 14:31 LRN (Rec: 05/30/22 15:19 LRN [id number]) Ankle/Foot Strength Ankle and Foot Manual Muscle Testing Right Dorsiflexion (L4) 0 Zero Plantarflexion (S1) 2- Poor- Inversion 1 Trace Eversion (S1) 1 Trace Left Comments Generally 5/5 PT-OP-T Assessment and Plan Start: 03/18/22 12:11 Freq: Status: Active Protocol: Document 08/08/22 17:17 LRN (Rec: 08/08/22 17:29 LRN [id number]) Physical Therapy Assessment Goals Four Impairment Decreased standing dynamic balance. Impairment Pt requires railing UE support to step over objects. 03/21/22: [place] Balance Score is 44 (>35 is safe amb w/ assistive device, >45 is safe w/o assist device) Short Term Goal (STG) Pt will be able to walk on different surfaces safely ( grass, soft sand or gravel to mimic cobblestones) with CGA> SBA. 05/08/22: Walked on hard sand with spouse giving CGA. 05/22/22: Pt needs guarding and assist every ~10 steps, used to be every step. Walked on trampled grass by self for 10' and grass/gravel w/spouse giving CGA with 1-2x [place]. 06/06/22: [place] Balance Score is 46, safe amb w/o assist device. Pt demonstrating gait consistent with L CVA ( weakness and tone on RLE). STG Duration 09/19/22 progressing 05/22/22. Longterm Goal (LTG) Pt will be able to step over 4 doorframe or other objects with use of SPC. 06/06/22: Pt able to step over 4 and 5 objects ( doorframe like) with use of SPC safely. LTG Duration 08/07/22 (06/06/22: MET GOAL) Three Impairment Decreased ability to walk up/ down inclines Impairment Requires arm hold assist when walking on an incline for safety. Short Term Goal (STG) Able to walk up/down a hill with CGA>SBA for safety. 05/08/22: Walking small incline on [place]. 05/22/22: Walking on [place] gentle hills (inclines/ declines) 4x. She can walk by self now. Spouse helps 1x each way, used to be all the time. Able to do inclines/ declines when weather is good and no wet leaves around. 07/28/22: [place] hold hand for stability decline but ok to do. Tx able ascend/descend uneven double mats/wedges CG/ MinAx1 w/SPC STG Duration 11/07/22 Goal partially met 07/28/22. Longterm Goal (LTG) Pt will be able to walk on [place] with SBA and an adaptive device for the RLE ( AFO) as needed. 05/08/22: Pt walking with spouse on [place] with SBA and ankle support. 05/22/22: Pt walking w/spoulse [place] with SBA> independent/cane/ankle support ). LTG Duration 08/07/22 (: MET GOAL). Two Impairment Decreased R LE strength Impairment Hyperextension of R knee with gait. R knee strength: Flex is 2/5, Ext is 4/5 and lacking ECC control with end-range extension. R ankle strength: Generally 1 /5 except ankle DF is 0/5. Short Term Goal (STG) Improve R knee and ankle strength 1/2 grade. 05/22/22: R knee flex 3-/5, Ext 4+/5. STG Duration 04/29/22 (05/22/22: MET GOAL ) [employer] Goal (LTG) Pt will demonstrate improved stability with gait with ability to limit R knee hyperextension during gait. 06/10/22: Pt needs phys & v cuing to prevent hyper ext of R knee during gait. 07/07/22: improved trunk alignment and decrease hip hike, better hip/ knee flexion RLE during gait post step con /ecc step ups 07/28/22: improved R knee soft knee flex midstance for LLE advancement w/use SPC in LLE. 08/05/22: Pt perceives stability with gait when keeping R knee slightly flexed on stance phase. LTG Duration 08/07/22 (08/05/22: MET GOAL) One Impairment Lacks appropriate self care HEP. Impairment Gait speed: 1.33 ft/sec ( measured over 20' walking span ) Short Term Goal (STG) Pt will be independent and consistent with a self care HEP. 04/03/22: Mini squats & sit<> stand. 04/24/22: Asst'd ankle DF and IV; standing heel raises. 05/22/22: HEP: R knee strengthening ex for sitting flex/ext. 06/10/22: I/S pt in del knee flex and sitting hip flex/AD w/ankle EV strengthening 08/05/22: Pt appears to always have a good understanding of home ex's and is able to recall ex's issued. STG Duration 04/29/22 (08/05/22: MET GOAL) Longterm Goal (LTG) Improve gait speed. 05/08/22: Gt speed with cane, ankle support/GB/SBA, 20ft/14 secs = 1.42 ft/sec. 05/22/22: Gt speed w/cane/ ankle support/SBA is 20'/12 secs = 1.67 ft/sec. 07/22/22: Gt speed w/cane/ ankle support/SBA/pt concentrating on gt mechanics is 20'/20 secs = 1.0 ft/sec. LTG Duration 11/07/22 progressing 05/22/22 , worse 07/22/22 due to pt focus on mechanics Assessment Summary Assessment Pt was seen on 08/05/22 and at that time showed consistency with her self care HEP to date . She also reported she perceived greater stability with gait when keeping R knee flexed on stance phase. The pt continues to have weakness in her R LE as expected from her CVA, but is very slowly improving in her stability with weightbearing through her RLE. The pt has a very supportive spouse who is walking with her most days on a daily basis. The pt is very motivated to continue to improve her R LE strength, gait stability and balance. I would recommend continuation of therapy to maximize her stability with gait, improve her balance and strength of her core & RLE. Physical Therapy Plan Frequency and Duration Frequency of Treatment 2x/Week Duration of treatment (weeks) 12 Plan of Care Start Date 08/08/22 Plan of Care End Date 11/07/22 Next Visit Focus/Plan Next Note Type Treatment Note Next Visit Plan Repeat step ups, & strengthen RLE. Add hurdles to improve WBing through RLE safely, monitoring WBing through LUE. Gait training. Recheck: Pt will talk to jesse YANG in June about possible need for R AFO for walking. POC: L CVA rehab. R knee/ankle (avoiding increasing R knee hyper ext tone) & core & pelvic strengthening, and ROM R ankle ex's (EV, cont DF), Balance training for weight shifting onto RLE and ambulation on incline/decline and uneven surfaces. Balance ex.
--- NOTE | 2022-08-11 14:30 | PT.OTN ---
Current Diagnoses Hyperlipidemia, unspecified (08/11/22) Essential (primary) hypertension (08/11/22) Muscle weakness (generalized) (08/11/22) Other specified disorders of muscle (08/11/22) Unsteadiness on feet (08/11/22) Other abnormalities of gait and mobility (08/11/22) Physical Therapy Treatment Note PT-OP-A Visit Information Start: 03/18/22 12:11 Freq: Status: Active Protocol: Document 08/11/22 13:46 SP (Rec: 08/11/22 16:23 SP [id number]) Out-Patient Physical Therapy Visit Information Visit Information Visit Type Treatment Note Visit Start Time 13:46 Visit Stop Time 14:30 Total Visit Minutes 44 Visit Number 20 Number of VACCINE MANAGER Visits 1 Evaluation Information Evaluation Date 03/18/22 Precautions Precautions Osteoporosis, history of falls , HBP controlled by meds. PT-OP-B Current Condition Start: 03/18/22 12:11 Freq: Status: Active Protocol: Document 03/18/22 13:51 LRN (Rec: 03/18/22 14:42 LRN [id number]) Current Condition History of Current Condition Onset Date A few weeks ago referred for stroke rehab at pt request. L CVA 07/22/18 Current Complaints Hasn't had therapy in a yr. 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 States since stroke she has had therapy for a few months each year. Referred by Dr Jose Mcginnis at [facility], who will no longer be following her because he was a fill in physician. Has follow up visit with a physician in June 2022, who will be her primary care physician. Pt reports her walking is still unsteady and her R hand is useless. Pt will be receiving PT & OT. States hamstrings are begining to improve, feeling in her feet is improving, and the inner R ankle ms are getting stronger, so she is not rolling her R ankle any more. Pt complains she doesn't have big toes to help her balance because they curl in. If she steps on something unevenly then it causes her to loose her balance. When walking she looks down at the ground, and if she hears someone behind her, it causes her to tense up and decreases her balance ability because it is very distracting to her. Her balance when statioinary is good, but dynamically is not good. Prior Treatments and Tests See development section below. Developmental History Developmental History She continues to make progress and feels therapy seems to help. Stoke in 07/22/2018 in [place]. Was in intensive care a few days, hospital a week and rehab in for 1 month. Home health the following month and outpatient OT/PT from September-Feb 2019. Started therapy again 06/2019 to 10/2019. Fall 08/03/19 with concusion. In 2020 had outpt PT 07/12 to 11/09. Treatment Goals Patient/Caregiver Goals Pt goals: Able to walk up/down hill. Currently she needs to hand onto someone if she is on a incline. Wants to walk on [place] without help. Wants to walk on different surfaces safely (grass, soft sand or gravel, cobblestones). Improve gait stability and speed. Able to step over 4 doorframe or other objects. Prior Functional Status Baseline Function- ADL's Independent Baseline Function- Mobility Independent Baseline Function- Work/School Homemaker. Current Functional Impairments (Reported) Functional Limitations- ADL's Past 2 months walks 1.25 miles 6 days/week. Other exercise is housework. Before walking on trails was doing modified yoga and Pilates exercise daily. Functional Limitations- Mobility/Gait Ambs with SPC, 1.25 miles with cane with spouse assist with inclines and declines. Personal Factors Other Personal Factors That May Effect Pt lives with spouse and son Therapy/Recovery who is a high functioning adult with autism, osteoporosis, intracranial meningioma. PT-OP-C Subjective Start: 03/18/22 12:11 Freq: Status: Active Protocol: Document 08/11/22 13:46 SP (Rec: 08/11/22 16:23 SP [id number]) OP-PT Subjective Patient Comments Patient Comments Pt reports on a waiting list to follow up with PT for POC update. Pt reports felt better about wt shift into R toe with LLE advancement glut, felt confused though after last tx [place] trying remember R/ L which toe down/ heel lift and found made her more off balance. PT-OP-D Balance Start: 03/18/22 12:11 Freq: Status: Active Protocol: Document 06/06/22 14:37 LRN (Rec: 06/06/22 17:14 LRN [id number]) [place] Balance Assessment Evaluation Sitting to Standing Ability Independent w/out Hands Unsupported Stance Safely- 2 minutes Sitting Unsupported, Feet on Floor Safely- 2 minutes Standing to Sitting Ability Safely, Minimal Hand Use Transfer Ability Safely, Minimal Hand Use Unsupported Stance- Eyes Closed Safely, 10 seconds Unsupported Stance- Eyes Open Independent, 1 minute Reaching Forward Standing Confidently, 10 inches Pick- Up Object From Floor Independent/Safe Look Behind Shoulder - Standing Shifts Weight Well Turning 360 Degrees Turns slowly, but safely Unsupported Stance, Alternating Feet on (I)- 8 Steps in 20 secs Stair Unsupported Tandem Stance Balance Lost- Step/Stand Unilateral Leg Stance Unable,assist to not fall Total Score [place]ford Total Score (out of 56 points) 46 [place] Impairment Rating 1 to 19% Impaired (Score 45-55 ) PT-OP-E Functional Tests Start: 03/18/22 12:11 Freq: Status: Active Protocol: Document 07/17/22 13:03 LRN (Rec: 07/17/22 13:48 LRN [id number]) Functional Tests 6 Minute Walk Test Distance 313 ft Device Used L SPC Comments Tennis shoes, cuing to not lock R knee into extension PT-OP-G Mobility & Gait Start: 03/18/22 12:11 Freq: Status: Active Protocol: Document 03/18/22 13:51 LRN (Rec: 03/18/22 14:42 LRN [id number]) OP Mobility Evaluation Transfers Sit to Stand Stand to sit sometime uncontrolled. Stands greater on LLE. OP Gait Assessment Gait Gait Assistance Required: Standby Assistance Able to Maintain Weight Bearing Status Yes During Gait Assistive Devices Assistive Device Gait Belt,Straight Cane Orthotic/Prosthetic Devices or Brace: No Gait Deviations General Gait Pattern Decreased Stride Length,Flexed Trunk,Lateral Trunk Lean,Wide Based Gait Factors Limiting Gait Function Factors Limiting Gait Function Abnormal Tonal Influences, Decreased Strength,Limited Range of Motion,Poor Balance Comments Gait Comments Circumducts R LE, R drop foot, holds trunk in R rot, R arm held in flexion contracture. PT-OP-H Neuro Start: 03/18/22 12:11 Freq: Status: Active Protocol: Document 03/18/22 13:51 LRN (Rec: 03/18/22 14:42 LRN [id number]) Sensation Evaluation Gross Sensation Gross Sensation WNL PT-OP-J Posture/Palpation/Skin Start: 03/18/22 12:11 Freq: Status: Active Protocol: Document 03/18/22 13:51 LRN (Rec: 03/18/22 14:42 LRN [id number]) Posture Evaluation Position Standing Head/C-Spine Posture Forward Head T-Spine Posture Rotation Right Shoulder Posture (L) Elevated Knee Posture (R) Genu Recurvatum Comments Posture Comments R handed. PT-OP-M Strength Start: 03/18/22 12:11 Freq: Status: Active Protocol: Document 05/30/22 14:31 LRN (Rec: 05/30/22 15:19 LRN [id number]) Ankle/Foot Strength Ankle and Foot Manual Muscle Testing Right Dorsiflexion (L4) 0 Zero Plantarflexion (S1) 2- Poor- Inversion 1 Trace Eversion (S1) 1 Trace Left Comments Generally 5/5 PT-OP-Q Treatments Start: 03/18/22 12:11 Freq: Status: Active Protocol: Document 08/11/22 13:46 SP (Rec: 08/11/22 16:23 SP [id number]) Cardio Equipment Recumbent Stepper (Sci-Fit) Duration (Minutes) 8 Resistance 2 Seat Position 5 Other LEs only, 35 RPMs (recumbent not avaiable) Therapeutic Exercises Standing Exercises Turning Standing Exercise Name 360 & 180 deg's Reps/Minutes 8 min- time next tx Comments cued tall scapular squeeze, soft R knee during wB LLE advancement. Heel Raises Standing Exercise Name Heel Raises in // bars Side bilateral Equipment Used rail BUE (mod WB) Reps/Minutes 2x5 resp Comments cued soft knee RLE, even BLE Gait Training Gait Activity R Knee control Description R knee flex before toe off and heel strike, incr'd WBing in RLE. Device Used rail, then open space Level of Assistance Constant cuing to R knee and CGA, assist w/foot (toe lift off, R foot EV) Surface Level Distance/Duration 23 min Treatment Focus R knee control for ankle DF w/ heel strike, toe off/knee flex , no R hyperext Comments cued tall posturing, scap retraction, each LE adancement , R soft knee during WB Neuro Re-Education Treatment Balance Activities clifford stepping Details step to patterning Equipment 4 hurdles (hurdles on side), near rail not used Reps/Duration 10 ft x4 laps Comments cued soft R knee, tall posturing, R glut fac- improved stability 10%A>CGA step over back clifford Equipment 1 clifford Reps/Duration 2x 8 reps Comments cued soft R knee, tall posturing, R glut fac- improved stability SLS Details SLS Surface RLE Equipment BUE rail support heavy Reps/Duration 5x5 sec hold Comments anterior R knee support Mod- light needed. Cued tall/ scap fac/core fac to allow stacked stability. decreased anterior R knee support light/Min PT-OP-T Assessment and Plan Start: 03/18/22 12:11 Freq: Status: Active Protocol: Document 08/11/22 13:46 SP (Rec: 08/11/22 16:23 SP [id number]) Physical Therapy Assessment Goals Four Impairment Decreased standing dynamic balance. Impairment Pt requires railing UE support to step over objects. 03/21/22: [place]ORD Balance Score is 44 (>35 is safe amb w/ assistive device, >45 is safe w/o assist device) Short Term Goal (STG) Pt will be able to walk on different surfaces safely ( grass, soft sand or gravel to mimic cobblestones) with CGA> SBA. 05/08/22: Walked on hard sand with spouse giving CGA. 05/22/22: Pt needs guarding and assist every ~10 steps, used to be every step. Walked on trampled grass by self for 10' and grass/gravel w/spouse giving CGA with 1-2x [place]. 06/06/22: [place]HERFORD Balance Score is 46, safe amb w/o assist device. Pt demonstrating gait consistent with L CVA ( weakness and tone on RLE). : went to aug[place] walking on brick use cane cane in LUE and husbands arm on R. [place] inclines self w/ SPC LUE still assist approx 5%A. STG Duration 09/19/22 progressing 08/11/22. Group Home Goal (LTG) Pt will be able to step over 4 doorframe or other objects with use of SPC. 06/06/22: Pt able to step over 4 and 5 objects ( doorframe like) with use of SPC safely. LTG Duration 08/07/22 (06/06/22: MET GOAL) Three Impairment Decreased ability to walk up/ down inclines Impairment Requires arm hold assist when walking on an incline for safety. Short Term Goal (STG) Able to walk up/down a hill with CGA>SBA for safety. 05/08/22: Walking small incline on [place]. 05/22/22: Walking on [place] gentle hills (inclines/ declines) 4x. She can walk by self now. Spouse helps 1x each way, used to be all the time. Able to do inclines/ declines when weather is good and no wet leaves around. 07/28/22: [place] hold hand for stability decline but ok to do. Tx able ascend/descend uneven double mats/wedges CG/ MinAx1 w/SPC STG Duration 11/07/22 Goal partially met 07/28/22. Florist Supplies Salesperson Goal (LTG) Pt will be able to walk on [place] with SBA and an adaptive device for the RLE ( AFO) as needed. 05/08/22: Pt walking with spouse on [place] with SBA and ankle support. 05/22/22: Pt walking w/spoulse [place] with SBA> independent/cane/ankle support ). LTG Duration 08/07/22 (: MET GOAL). Two Impairment Decreased R LE strength Impairment Hyperextension of R knee with gait. R knee strength: Flex is 2/5, Ext is 4/5 and lacking ECC control with end-range extension. R ankle strength: Generally 1 /5 except ankle DF is 0/5. Short Term Goal (STG) Improve R knee and ankle strength 1/2 grade. 05/22/22: R knee flex 3-/5, Ext 4+/5. STG Duration 04/29/22 (05/22/22: MET GOAL ) Group Home Goal (LTG) Pt will demonstrate improved stability with gait with ability to limit R knee hyperextension during gait. 06/10/22: Pt needs phys & v cuing to prevent hyper ext of R knee during gait. 07/07/22: improved trunk alignment and decrease hip hike, better hip/ knee flexion RLE during gait post step con /ecc step ups 07/28/22: improved R knee soft knee flex midstance for LLE advancement w/use SPC in LLE. 08/05/22: Pt perceives stability with gait when keeping R knee slightly flexed on stance phase. LTG Duration 08/07/22 (08/05/22: MET GOAL) One Impairment Lacks appropriate self care HEP. Impairment Gait speed: 1.33 ft/sec ( measured over 20' walking span ) Short Term Goal (STG) Pt will be independent and consistent with a self care HEP. 04/03/22: Mini squats & sit<> stand. 04/24/22: Asst'd ankle DF and IV; standing heel raises. 05/22/22: HEP: R knee strengthening ex for sitting flex/ext. 06/10/22: I/S pt in del knee flex and sitting hip flex/AD w/ankle EV strengthening 08/05/22: Pt appears to always have a good understanding of home ex's and is able to recall ex's issued. STG Duration 04/29/22 (08/05/22: MET GOAL) Florist Supplies Salesperson Goal (LTG) Improve gait speed. 05/08/22: Gt speed with cane, ankle support/GB/SBA, 20ft/14 secs = 1.42 ft/sec. 05/22/22: Gt speed w/cane/ ankle support/SBA is 20'/12 secs = 1.67 ft/sec. 07/22/22: Gt speed w/cane/ ankle support/SBA/pt concentrating on gt mechanics is 20'/20 secs = 1.0 ft/sec. LTG Duration 11/07/22 progressing 05/22/22 , worse 07/22/22 due to pt focus on mechanics Assessment Summary Assessment Pt improved R soft knee during clifford stepping progression, fair carryover gait front mirror no AD with cues for tall posturing, R soft knee stance time. Better understanding and verbalized wasn't so confused what leg/ toe positioning. Physical Therapy Plan Frequency and Duration Frequency of Treatment 2x/Week Duration of treatment (weeks) 12 Plan of Care Start Date 08/08/22 Plan of Care End Date 11/07/22 Therapeutic Interventions Therapeutic Interventions Gait Training,Home Exercise Program,Neuromuscular Re- education,Patient/Caregiver Education,Self-Care/Home Management,Therapeutic Exercises Modalities Cold Pack/Ice Massage,Hot Packs Next Visit Focus/Plan Next Note Type Treatment Note Next Visit Plan 6MWT initial next tx. Continue clifford WB Stance LE stepping, Repeat step ups, & strengthen RLE. Gait training. Recheck: Pt will talk to new MD in June about possible need for R AFO for walking. POC: L CVA rehab. R knee/ankle (avoiding increasing R knee hyper ext tone) & core & pelvic strengthening, and ROM R ankle ex's (EV, cont DF), Balance training for weight shifting onto RLE and ambulation on incline/decline and uneven surfaces. Balance ex.
--- NOTE | 2022-08-14 17:29 | PT-OP ANOTE ---
Called [facility] to verify receipt of pt's POC update sent 08/08/22. Alessandra at call center will leave message to Dr. Sinai Parsons who has been assigned to pt's care from Dr. Jose Mcginnis.
--- NOTE | 2022-08-18 15:15 | PT.OTN ---
Current Diagnoses Hyperlipidemia, unspecified (08/18/22) Essential (primary) hypertension (08/18/22) Muscle weakness (generalized) (08/18/22) Other specified disorders of muscle (08/18/22) Unsteadiness on feet (08/18/22) Other abnormalities of gait and mobility (08/18/22) Physical Therapy Treatment Note PT-OP-A Visit Information Start: 03/18/22 12:11 Freq: Status: Active Protocol: Document 08/18/22 14:34 SP (Rec: 08/18/22 15:40 SP [id number]) Out-Patient Physical Therapy Visit Information Visit Information Visit Type Treatment Note Visit Note * 6MWT next tx. Visit Start Time 14:34 Visit Stop Time 15:15 Total Visit Minutes 41 Visit Number 21 Number of SECOND CRUSHER Visits 2 Evaluation Information Evaluation Date 03/18/22 Precautions Precautions Osteoporosis, history of falls , HBP controlled by meds. PT-OP-B Current Condition Start: 03/18/22 12:11 Freq: Status: Active Protocol: Document 03/18/22 13:51 LRN (Rec: 03/18/22 14:42 LRN [id number]) Current Condition History of Current Condition Onset Date A few weeks ago referred for stroke rehab at pt request. L CVA 07/22/18 Current Complaints Hasn't had therapy in a yr. 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 States since stroke she has had therapy for a few months each year. Referred by Dr Jose Mcginnis at [facility], who will no longer be following her because he was a fill in physician. Has follow up visit with a physician in June 2022, who will be her primary care physician. Pt reports her walking is still unsteady and her R hand is useless. Pt will be receiving PT & OT. States hamstrings are begining to improve, feeling in her feet is improving, and the inner R ankle ms are getting stronger, so she is not rolling her R ankle any more. Pt complains she doesn't have big toes to help her balance because they curl in. If she steps on something unevenly then it causes her to loose her balance. When walking she looks down at the ground, and if she hears someone behind her, it causes her to tense up and decreases her balance ability because it is very distracting to her. Her balance when statioinary is good, but dynamically is not good. Prior Treatments and Tests See development section below. Developmental History Developmental History She continues to make progress and feels therapy seems to help. Stoke in 07/22/2018 in [place]. Was in intensive care a few days, hospital a week and rehab inpt for 1 month. Home health the following month and outpatient OT/PT from September-Feb 2019. Started therapy again 06/2019 to 10/2019. Fall 08/03/19 with concusion. In 2020 had outpt PT 07/12 to 11/09. Treatment Goals Patient/Caregiver Goals Pt goals: Able to walk up/down hill. Currently she needs to hand onto someone if she is on a incline. Wants to walk on [place] without help. Wants to walk on different surfaces safely (grass, soft sand or gravel, cobblestones). Improve gait stability and speed. Able to step over 4 doorframe or other objects. Prior Functional Status Baseline Function- ADL's Independent Baseline Function- Mobility Independent Baseline Function- Work/School Homemaker. Current Functional Impairments (Reported) Functional Limitations- ADL's Past 2 months walks 1.25 miles 6 days/week. Other exercise is housework. Before walking on trails was doing modified yoga and Pilates exercise daily. Functional Limitations- Mobility/Gait Ambs with SPC, 1.25 miles with cane with spouse assist with inclines and declines. Personal Factors Other Personal Factors That May Effect Pt lives with spouse and son Therapy/Recovery who is a high functioning adult with autism, osteoporosis, intracranial meningioma. PT-OP-C Subjective Start: 03/18/22 12:11 Freq: Status: Active Protocol: Document 08/18/22 14:34 SP (Rec: 08/18/22 15:40 SP [id number]) OP-PT Subjective Patient Comments Patient Comments Pt was asked by her OT during her PT tx if would be ok to wear a weight on R wrist to assist elbow extension during gait to support arm swing, usually did with weighted wrist brace but with cold weather is challenging with don/doff jackets but can put a wrist weight over her clothes . PT-OP-D Balance Start: 03/18/22 12:11 Freq: Status: Active Protocol: Document 06/06/22 14:37 LRN (Rec: 06/06/22 17:14 LRN [id number]) [place] Balance Assessment Evaluation Sitting to Standing Ability Independent w/out Hands Unsupported Stance Safely- 2 minutes Sitting Unsupported, Feet on Floor Safely- 2 minutes Standing to Sitting Ability Safely, Minimal Hand Use Transfer Ability Safely, Minimal Hand Use Unsupported Stance- Eyes Closed Safely, 10 seconds Unsupported Stance- Eyes Open Independent, 1 minute Reaching Forward Standing Confidently, 10 inches Pick- Up Object From Floor Independent/Safe Look Behind Shoulder - Standing Shifts Weight Well Turning 360 Degrees Turns slowly, but safely Unsupported Stance, Alternating Feet on (I)- 8 Steps in 20 secs Stair Unsupported Tandem Stance Balance Lost- Step/Stand Unilateral Leg Stance Unable,assist to not fall Total Score Rutherford Total Score (out of 56 points) 46 [place]ford Impairment Rating 1 to 19% Impaired (Score 45-55 ) PT-OP-E Functional Tests Start: 03/18/22 12:11 Freq: Status: Active Protocol: Document 07/17/22 13:03 LRN (Rec: 07/17/22 13:48 LRN [id number]) Functional Tests 6 Minute Walk Test Distance 313 ft Device Used L SPC Comments Tennis shoes, cuing to not lock R knee into extension PT-OP-G Mobility & Gait Start: 03/18/22 12:11 Freq: Status: Active Protocol: Document 03/18/22 13:51 LRN (Rec: 03/18/22 14:42 LRN [id number]) OP Mobility Evaluation Transfers Sit to Stand Stand to sit sometime uncontrolled. Stands greater on LLE. OP Gait Assessment Gait Gait Assistance Required: Standby Assistance Able to Maintain Weight Bearing Status Yes During Gait Assistive Devices Assistive Device Gait Belt,Straight Cane Orthotic/Prosthetic Devices or Brace: No Gait Deviations General Gait Pattern Decreased Stride Length,Flexed Trunk,Lateral Trunk Lean,Wide Based Gait Factors Limiting Gait Function Factors Limiting Gait Function Abnormal Tonal Influences, Decreased Strength,Limited Range of Motion,Poor Balance Comments Gait Comments Circumducts R LE, R drop foot, holds trunk in R rot, R arm held in flexion contracture. PT-OP-H Neuro Start: 03/18/22 12:11 Freq: Status: Active Protocol: Document 03/18/22 13:51 LRN (Rec: 03/18/22 14:42 LRN [id number]) Sensation Evaluation Gross Sensation Gross Sensation WNL PT-OP-J Posture/Palpation/Skin Start: 03/18/22 12:11 Freq: Status: Active Protocol: Document 03/18/22 13:51 LRN (Rec: 03/18/22 14:42 LRN [id number]) Posture Evaluation Position Standing Head/C-Spine Posture Forward Head T-Spine Posture Rotation Right Shoulder Posture (L) Elevated Knee Posture (R) Genu Recurvatum Comments Posture Comments R handed. PT-OP-M Strength Start: 03/18/22 12:11 Freq: Status: Active Protocol: Document 05/30/22 14:31 LRN (Rec: 05/30/22 15:19 LRN [id number]) Ankle/Foot Strength Ankle and Foot Manual Muscle Testing Right Dorsiflexion (L4) 0 Zero Plantarflexion (S1) 2- Poor- Inversion 1 Trace Eversion (S1) 1 Trace Left Comments Generally 5/5 PT-OP-Q Treatments Start: 03/18/22 12:11 Freq: Status: Active Protocol: Document 08/18/22 14:34 SP (Rec: 08/18/22 15:40 SP [id number]) Therapeutic Exercises Sitting Exercises Sit<>Stand Sitting Exercise Name Sit<>Stand: reach back BUEs Resistance 2# R wrist weight Equipment Used mesh chair, lrg chair near lockers Reps/Minutes 3x5 reps Comments Mod cues for hip hinge and slow descent while reach bk BUEs- no flop last1 Gait Training Gait Activity forward/backward stepping Description R knee flexion/ heel toe fwd, R knee/hip flexion while perform hip extensio Device Used none, gait belt Level of Assistance CG-5%A by SECOND CRUSHER, wand PT Aide fac receiprocal arms swing/BLE stepping (behd) Surface carpet/level Distance/Duration 10 ft x4 reps Treatment Focus RLE foot clearance fwd/bwd stepping Comments cued R knee/hip flexion heel toe advancement fwd, cued knee /hip flexion while back step, improved foot clearance w/ Cues and lessened lateral SB L for clearance backing up to chair. R Knee control Description R knee flexion swing phase, eccentric heel strike, R elbow ext/swing wt'd Device Used wands initial, open space Level of Assistance Min cuing for // feet, elbow ext/ swing Surface Level Distance/Duration 30 min Treatment Focus R knee soft flexion into WB/ flexion swinge phase, R UE extended arm swing Comments cued tall posturing, RLE foot clearance, R elbow straight hand to floor, support extension with RLE advancement . Improved with 2# wrist wt. PT-OP-T Assessment and Plan Start: 03/18/22 12:11 Freq: Status: Active Protocol: Document 08/18/22 14:34 SP (Rec: 08/18/22 15:40 SP [id number]) Physical Therapy Assessment Goals Four Impairment Decreased standing dynamic balance. Impairment Pt requires railing UE support to step over objects. Short Term Goal (STG) Pt will be able to walk on different surfaces safely ( grass, soft sand or gravel to mimic cobblestones) with CGA> SBA. 03/21/22: [place]ORD Balance Score is 44 (>35 is safe amb w/ assistive device, >45 is safe w/o assist device) 05/08/22: Walked on hard sand with spouse giving CGA. 05/22/22: Pt needs guarding and assist every ~10 steps, used to be every step. Walked on trampled grass by self for 10' and grass/gravel w/spouse giving CGA with 1-2x [place]. 06/06/22: [place]ORD Balance Score is 46, safe amb w/o assist device. Pt demonstrating gait consistent with L CVA ( weakness and tone on RLE). : [place] use cane cane in LUE and husbands arm on R. [place] inclines self w/ SPC LUE still assist approx 5%A. STG Duration 09/19/22 progressing 08/11/22. Fpc Goal (LTG) Pt will be able to step over 4 doorframe or other objects with use of SPC. 06/06/22: Pt able to step over 4 and 5 objects ( doorframe like) with use of SPC safely. LTG Duration 08/07/22 (06/06/22: MET GOAL) Three Impairment Decreased ability to walk up/ down inclines Impairment Requires arm hold assist when walking on an incline for safety. Short Term Goal (STG) Able to walk up/down a hill with CGA>SBA for safety. 05/08/22: Walking small incline on [place]. 05/22/22: Walking on [place] gentle hills (inclines/ declines) 4x. She can walk by self now. Spouse helps 1x each way, used to be all the time. Able to do inclines/ declines when weather is good and no wet leaves around. 07/28/22: [place] hold hand for stability decline but ok to do. Tx able ascend/descend uneven double mats/wedges CG/ MinAx1 w/SPC STG Duration 11/07/22 Goal partially met 07/28/22. Fpc Goal (LTG) Pt will be able to walk on [place] with SBA and an adaptive device for the RLE ( AFO) as needed. 05/08/22: Pt walking with spouse on [place] with SBA and ankle support. 05/22/22: Pt walking w/spoulse [place] with SBA> independent/cane/ankle support ). LTG Duration 08/07/22 (: MET GOAL). One Impairment Lacks appropriate self care HEP. Impairment Gait speed: 1.33 ft/sec ( measured over 20' walking span ) Short Term Goal (STG) Pt will be independent and consistent with a self care HEP. 04/03/22: Mini squats & sit<> stand. 04/24/22: Asst'd ankle DF and IV; standing heel raises. 05/22/22: HEP: R knee strengthening ex for sitting flex/ext. 06/10/22: I/S pt in [place] knee flex and sitting hip flex/AD w/ankle EV strengthening 08/05/22: Pt appears to always have a good understanding of home ex's and is able to recall ex's issued. STG Duration 04/29/22 (08/05/22: MET GOAL) Pulmonary Function Technician Goal (LTG) Improve gait speed. 05/08/22: Gt speed with cane, ankle support/GB/SBA, 20ft/14 secs = 1.42 ft/sec. 05/22/22: Gt speed w/cane/ ankle support/SBA is 20'/12 secs = 1.67 ft/sec. 07/22/22: Gt speed w/cane/ ankle support/SBA/pt concentrating on gt mechanics is 20'/20 secs = 1.0 ft/sec. LTG Duration 11/07/22 progressing 05/22/22 , worse 07/22/22 due to pt focus on mechanics Assessment Summary Assessment Pt improved RLE foot clearance and alignment //feet during receiprocal stepping with PT Aide RUE armswing facilitation and able increase R elbow extension with assist. Pt improved back stepping foot clearance with cues for R knee & hip flexion while extend/ step back, lessened hip hike compensations with repetitions . Physical Therapy Plan Frequency and Duration Frequency of Treatment 2x/Week Duration of treatment (weeks) 12 Plan of Care Start Date 08/08/22 Plan of Care End Date 11/07/22 Therapeutic Interventions Therapeutic Interventions Gait Training,Home Exercise Program,Neuromuscular Re- education,Patient/Caregiver Education,Self-Care/Home Management,Therapeutic Exercises Modalities Cold Pack/Ice Massage,Hot Packs Next Visit Focus/Plan Next Note Type Treatment Note Next Visit Plan 6MWT initial next tx. Continue clifford WB Stance LE stepping, Repeat step ups, & strengthen RLE. Gait training. Recheck: Pt will talk to new in June about possible need for R AFO for walking. POC: L CVA rehab. R knee/ankle (avoiding increasing R knee hyper ext tone) & core & pelvic strengthening, and ROM R ankle ex's (EV, cont DF), Balance training for weight shifting onto RLE and ambulation on incline/decline and uneven surfaces. Balance ex.
--- NOTE | 2022-08-26 15:15 | PT.OTN ---
Current Diagnoses Hyperlipidemia, unspecified (08/26/22) Essential (primary) hypertension (08/26/22) Muscle weakness (generalized) (08/26/22) Other specified disorders of muscle (08/26/22) Unsteadiness on feet (08/26/22) Other abnormalities of gait and mobility (08/26/22) Physical Therapy Treatment Note PT-OP-A Visit Information Start: 03/18/22 12:11 Freq: Status: Active Protocol: Document 08/26/22 14:32 SP (Rec: 08/26/22 16:06 SP [id number]) Out-Patient Physical Therapy Visit Information Visit Information Visit Type Treatment Note Visit Start Time 14:32 Visit Stop Time 15:15 Total Visit Minutes 43 Visit Number 22 Number of [employer] ADMINISTRATOR Visits 3 Evaluation Information Evaluation Date 03/18/22 Precautions Precautions Osteoporosis, history of falls , HBP controlled by meds. PT-OP-B Current Condition Start: 03/18/22 12:11 Freq: Status: Active Protocol: Document 03/18/22 13:51 LRN (Rec: 03/18/22 14:42 LRN [id number]) Current Condition History of Current Condition Onset Date A few weeks ago referred for stroke rehab at pt request. L CVA 07/22/18 Current Complaints Hasn't had therapy in a yr. 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 States since stroke she has had therapy for a few months each year. Referred by Dr Jose Mcginnis at [facility], who will no longer be following her because he was a fill in physician. Has follow up visit with a physician in June 2022, who will be her primary care physician. Pt reports her walking is still unsteady and her R hand is useless. Pt will be receiving PT & OT. States hamstrings are begining to improve, feeling in her feet is improving, and the inner R ankle ms are getting stronger, so she is not rolling her R ankle any more. Pt complains she doesn't have big toes to help her balance because they curl in. If she steps on something unevenly then it causes her to loose her balance. When walking she looks down at the ground, and if she hears someone behind her, it causes her to tense up and decreases her balance ability because it is very distracting to her. Her balance when statioinary is good, but dynamically is not good. Prior Treatments and Tests See development section below. Developmental History Developmental History She continues to make progress and feels therapy seems to help. Stoke in 07/22/2018 in [place]. Was in intensive care a few days, hospital a week and rehab inpt for 1 month. Home health the following month and outpatient OT/PT from September-Feb 2019. Started therapy again 06/2019 to 10/2019. Fall 08/03/19 with concusion. In 2020 had outpt PT 07/12 to 11/09. Treatment Goals Patient/Caregiver Goals Pt goals: Able to walk up/down hill. Currently she needs to hand onto someone if she is on a incline. Wants to walk on [place] without help. Wants to walk on different surfaces safely (grass, soft sand or gravel, cobblestones). Improve gait stability and speed. Able to step over 4 doorframe or other objects. Prior Functional Status Baseline Function- ADL's Independent Baseline Function- Mobility Independent Baseline Function- Work/School Homemaker. Current Functional Impairments (Reported) Functional Limitations- ADL's Past 2 months walks 1.25 miles 6 days/week. Other exercise is housework. Before walking on trails was doing modified yoga and Pilates exercise daily. Functional Limitations- Mobility/Gait Ambs with SPC, 1.25 miles with cane with spouse assist with inclines and declines. Personal Factors Other Personal Factors That May Effect Pt lives with spouse and son Therapy/Recovery who is a high functioning adult with autism, osteoporosis, intracranial meningioma. PT-OP-C Subjective Start: 03/18/22 12:11 Freq: Status: Active Protocol: Document 08/26/22 14:32 SP (Rec: 08/26/22 16:06 SP [id number]) OP-PT Subjective Patient Comments Patient Comments Pt reported getting more feeling in posterior R calf, heel, plantar surface. She has been doing little cliffrod ( like in PT) stepping over/back at home hanging onto counter on L. She states noticing R foot more neutral and less thought of turning out, tended to turn in in past. PT-OP-D Balance Start: 03/18/22 12:11 Freq: Status: Active Protocol: Document 06/06/22 14:37 LRN (Rec: 06/06/22 17:14 LRN [id number]) R[place]ford Balance Assessment Evaluation Sitting to Standing Ability Independent w/out Hands Unsupported Stance Safely- 2 minutes Sitting Unsupported, Feet on Floor Safely- 2 minutes Standing to Sitting Ability Safely, Minimal Hand Use Transfer Ability Safely, Minimal Hand Use Unsupported Stance- Eyes Closed Safely, 10 seconds Unsupported Stance- Eyes Open Independent, 1 minute Reaching Forward Standing Confidently, 10 inches Pick- Up Object From Floor Independent/Safe Look Behind Shoulder - Standing Shifts Weight Well Turning 360 Degrees Turns slowly, but safely Unsupported Stance, Alternating Feet on (I)- 8 Steps in 20 secs Stair Unsupported Tandem Stance Balance Lost- Step/Stand Unilateral Leg Stance Unable,assist to not fall Total Score Rutherford Total Score (out of 56 points) 46 R[place]ford Impairment Rating 1 to 19% Impaired (Score 45-55 ) PT-OP-E Functional Tests Start: 03/18/22 12:11 Freq: Status: Active Protocol: Document 07/17/22 13:03 LRN (Rec: 07/17/22 13:48 LRN [id number]) Functional Tests 6 Minute Walk Test Distance 313 ft Device Used L SPC Comments Tennis shoes, cuing to not lock R knee into extension PT-OP-G Mobility & Gait Start: 03/18/22 12:11 Freq: Status: Active Protocol: Document 03/18/22 13:51 LRN (Rec: 03/18/22 14:42 LRN [id number]) OP Mobility Evaluation Transfers Sit to Stand Stand to sit sometime uncontrolled. Stands greater on LLE. OP Gait Assessment Gait Gait Assistance Required: Standby Assistance Able to Maintain Weight Bearing Status Yes During Gait Assistive Devices Assistive Device Gait Belt,Straight Cane Orthotic/Prosthetic Devices or Brace: No Gait Deviations General Gait Pattern Decreased Stride Length,Flexed Trunk,Lateral Trunk Lean,Wide Based Gait Factors Limiting Gait Function Factors Limiting Gait Function Abnormal Tonal Influences, Decreased Strength,Limited Range of Motion,Poor Balance Comments Gait Comments Circumducts R LE, R drop foot, holds trunk in R rot, R arm held in flexion contracture. PT-OP-H Neuro Start: 03/18/22 12:11 Freq: Status: Active Protocol: Document 03/18/22 13:51 LRN (Rec: 03/18/22 14:42 LRN [id number]) Sensation Evaluation Gross Sensation Gross Sensation WNL PT-OP-J Posture/Palpation/Skin Start: 03/18/22 12:11 Freq: Status: Active Protocol: Document 03/18/22 13:51 LRN (Rec: 03/18/22 14:42 LRN [id number]) Posture Evaluation Position Standing Head/C-Spine Posture Forward Head T-Spine Posture Rotation Right Shoulder Posture (L) Elevated Knee Posture (R) Genu Recurvatum Comments Posture Comments R handed. PT-OP-M Strength Start: 03/18/22 12:11 Freq: Status: Active Protocol: Document 05/30/22 14:31 LRN (Rec: 05/30/22 15:19 LRN [id number]) Ankle/Foot Strength Ankle and Foot Manual Muscle Testing Right Dorsiflexion (L4) 0 Zero Plantarflexion (S1) 2- Poor- Inversion 1 Trace Eversion (S1) 1 Trace Left Comments Generally 5/5 PT-OP-Q Treatments Start: 03/18/22 12:11 Freq: Status: Active Protocol: Document 08/26/22 14:32 SP (Rec: 08/26/22 16:06 SP [id number]) Therapeutic Exercises Sitting Exercises Knee flex Sitting Exercise Name knee flex-HEP reviewed Side right Resistance TB #1 (anchored on cradenza) Equipment Used seated as fully back in mesh chair as can Reps/Minutes x15 reps- foot sliding on floor best Comments cued tall sitting, BUE rested on seat Gait Training Gait Activity stairs Description step to patterning (2# arm wt on RUE) Device Used SPC LUE (uses L HR at home) Level of Assistance CGA-5%A Distance/Duration 7 stairs outside side MAP dg Treatment Focus R LE hip/knee flexion/ DF clearance advancement, Comments Cued tall posturing/ core fac with increase R hip/knee flexion & DF mindfulness during advancement, improved ease. 6MWT Description endurance assessment in gait speed Device Used SPC LUE Level of Assistance S Surface carpet Distance/Duration 538 ft in 6 min Treatment Focus soft/unlocked R knee during midstance/foot clearance Comments R foot caught x1 when asked a question, self recovery. uneven incline/decline Description MAP [facility] incline gravel asc/ descend Device Used SPC LUE Level of Assistance CGA for safety Distance/Duration 15 ft x2 laps Treatment Focus R foot clearance, RLE WB soft knee and heel toe advancement Neuro Re-Education Treatment Balance Activities clifford stepping Details step to patterning Equipment 6 hurdles (hurdles on side), near rail not used Reps/Duration 10 ft x4 laps Comments cued soft R knee, tall posturing, R glut fac- improved stability 5%A>CGA, leading each LE each direction. PT-OP-T Assessment and Plan Start: 03/18/22 12:11 Freq: Status: Active Protocol: Document 08/26/22 14:32 SP (Rec: 08/26/22 16:06 SP [id number]) Physical Therapy Assessment Goals Four Impairment Decreased standing dynamic balance. Impairment Pt requires railing UE support to step over objects. Short Term Goal (STG) Pt will be able to walk on different surfaces safely ( grass, soft sand or gravel to mimic cobblestones) with CGA> SBA. 03/21/22: RUTHERFORD Balance Score is 44 (>35 is safe amb w/ assistive device, >45 is safe w/o assist device) 05/08/22: Walked on hard sand with spouse giving CGA. 05/22/22: Pt needs guarding and assist every ~10 steps, used to be every step. Walked on trampled grass by self for 10' and grass/gravel w/spouse giving CGA with 1-2x Odal[place]. 06/06/22: RUTHERFORD Balance Score is 46, safe amb w/o assist device. Pt demonstrating gait consistent with L CVA ( weakness and tone on RLE). : went [place] walking on brick use cane cane in LUE and husbands arm on R. [place] inclines self w/ SPC LUE still assist approx 5%A. 08/26/22: progressing: CG-5%A ascend/descend incline gravel MAP bldg, cued small stepping, improved R quad/glut, continues quick LLE advancememt. She states she has to walk little slower during incline/decline [place] but feeling more confident less support required. STG Duration 09/19/22 progressing 08/26/22. Usp Goal (LTG) Pt will be able to step over 4 doorframe or other objects with use of SPC. 06/06/22: Pt able to step over 4 and 5 objects ( doorframe like) with use of SPC safely. LTG Duration 08/07/22 (06/06/22: MET GOAL) Three Impairment Decreased ability to walk up/ down inclines Impairment Requires arm hold assist when walking on an incline for safety. Short Term Goal (STG) Able to walk up/down a hill with CGA>SBA for safety. 05/08/22: Walking small incline on [place]. 05/22/22: Walking on [place] gentle hills (inclines/ declines) 4x. She can walk by self now. Spouse helps 1x each way, used to be all the time. Able to do inclines/ declines when weather is good and no wet leaves around. 07/28/22: [place] hold hand for stability decline but ok to do. Tx able ascend/descend uneven double mats/wedges CG/ MinAx1 w/SPC 08/26/22: progressing: CG-5%A through gait belt ascend/ descend incline gravel MAP bldg, cued small stepping, improved R quad/glut, continues quick LLE advancememt. She states she has to walk little slower during incline/decline [place] but feeling more confident less 's arm support required. STG Duration 11/07/22 PRogressing 08/26/22 Horse Trader Goal (LTG) Pt will be able to walk on [place] with SBA and an adaptive device for the RLE ( AFO) as needed. 05/08/22: Pt walking with spouse on [place] with SBA and ankle support. 05/22/22: Pt walking w/spoulse [place] with SBA> independent/cane/ankle support ). LTG Duration 08/07/22 (: MET GOAL). One Impairment Lacks appropriate self care HEP. Impairment Gait speed: 1.33 ft/sec ( measured over 20' walking span ) Short Term Goal (STG) Pt will be independent and consistent with a self care HEP. 04/03/22: Mini squats & sit<> stand. 04/24/22: Asst'd ankle DF and IV; standing heel raises. 05/22/22: HEP: R knee strengthening ex for sitting flex/ext. 06/10/22: I/S pt in del knee flex and sitting hip flex/AD w/ankle EV strengthening 08/05/22: Pt appears to always have a good understanding of home ex's and is able to recall ex's issued. STG Duration 04/29/22 (08/05/22: MET GOAL) Usp Goal (LTG) Improve gait speed. 05/08/22: Gt speed with cane, ankle support/GB/SBA, 20ft/14 secs = 1.42 ft/sec. 05/22/22: Gt speed w/cane/ ankle support/SBA is 20'/12 secs = 1.67 ft/sec. 07/22/22: Gt speed w/cane/ ankle support/SBA/pt concentrating on gt mechanics is 20'/20 secs = 1.0 ft/sec. 08/26/22: gait speed: 538 ft in 6 min= 1.49ft/sec using SPC in LUE LTG Duration 11/07/22 progressing 08/26/22 Progress Towards Goals Progress Comments Gained .02 ft/sec (1.49 ft/sec ) during gait speed 6MWT today 's tx. Assessment Summary Assessment Pt improved gait speed, occasional cues for R soft knee during midstance and R knee flexion swing through with heel toe mindfulness pattern. Noted less trunk lean L end tx post uneven surface gait, stairs and clifford stepping. Physical Therapy Plan Frequency and Duration Frequency of Treatment 2x/Week Duration of treatment (weeks) 12 Plan of Care Start Date 08/08/22 Plan of Care End Date 11/07/22 Therapeutic Interventions Therapeutic Interventions Gait Training,Home Exercise Program,Neuromuscular Re- education,Patient/Caregiver Education,Self-Care/Home Management,Therapeutic Exercises Modalities Cold Pack/Ice Massage,Hot Packs Next Visit Focus/Plan Next Note Type Treatment Note Next Visit Plan Continue clifford WB Stance RLE stepping, Repeat step ups, & strengthen RLE. Gait training long distance and uneven surface mat. Recheck: Pt will talk to jesse YANG in June about possible need for R AFO for walking. POC: L CVA rehab. R knee/ankle (avoiding increasing R knee hyper ext tone) & core & pelvic strengthening, and ROM R ankle ex's (EV, cont DF), Balance training for weight shifting onto RLE and ambulation on incline/decline and uneven surfaces. Balance ex.
--- NOTE | 2022-09-04 13:47 | PT.OTN ---
Current Diagnoses Hyperlipidemia, unspecified (09/04/22) Essential (primary) hypertension (09/04/22) Muscle weakness (generalized) (09/04/22) Other specified disorders of muscle (09/04/22) Unsteadiness on feet (09/04/22) Other abnormalities of gait and mobility (09/04/22) Physical Therapy Treatment Note PT-OP-A Visit Information Start: 03/18/22 12:11 Freq: Status: Active Protocol: Document 09/04/22 13:08 SP (Rec: 09/04/22 13:49 SP [id number]) Out-Patient Physical Therapy Visit Information Visit Information Visit Type Treatment Note Visit Start Time 13:08 Visit Stop Time 13:47 Total Visit Minutes 39 Visit Number 23 Number of OPHTHALMIC SURGEON Visits 4 Evaluation Information Evaluation Date 03/18/22 Precautions Precautions Osteoporosis, history of falls , HBP controlled by meds. PT-OP-B Current Condition Start: 03/18/22 12:11 Freq: Status: Active Protocol: Document 03/18/22 13:51 LRN (Rec: 03/18/22 14:42 LRN [id number]) Current Condition History of Current Condition Onset Date A few weeks ago referred for stroke rehab at pt request. L CVA 07/22/18 Current Complaints Hasn't had therapy in a yr. 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 States since stroke she has had therapy for a few months each year. Referred by Dr Jose Mcginnis at [facility], who will no longer be following her because he was a fill in physician. Has follow up visit with a physician in June 2022, who will be her primary care physician. Pt reports her walking is still unsteady and her R hand is useless. Pt will be receiving PT & OT. States hamstrings are begining to improve, feeling in her feet is improving, and the inner R ankle ms are getting stronger, so she is not rolling her R ankle any more. Pt complains she doesn't have big toes to help her balance because they curl in. If she steps on something unevenly then it causes her to loose her balance. When walking she looks down at the ground, and if she hears someone behind her, it causes her to tense up and decreases her balance ability because it is very distracting to her. Her balance when statioinary is good, but dynamically is not good. Prior Treatments and Tests See development section below. Developmental History Developmental History She continues to make progress and feels therapy seems to help. Stoke in 07/22/2018 in [place]. Was in intensive care a few days, hospital a week and rehab in for 1 month. Home health the following month and outpatient OT/PT from September-Feb 2019. Started therapy again 06/2019 to 10/2019. Fall 08/03/19 with concusion. In 2020 had outpt PT 07/12 to 11/09. Treatment Goals Patient/Caregiver Goals Pt goals: Able to walk up/down hill. Currently she needs to hand onto someone if she is on a incline. Wants to walk on [place] without help. Wants to walk on different surfaces safely (grass, soft sand or gravel, cobblestones). Improve gait stability and speed. Able to step over 4 doorframe or other objects. Prior Functional Status Baseline Function- ADL's Independent Baseline Function- Mobility Independent Baseline Function- Work/School Homemaker. Current Functional Impairments (Reported) Functional Limitations- ADL's Past 2 months walks 1.25 miles 6 days/week. Other exercise is housework. Before walking on trails was doing modified yoga and Pilates exercise daily. Functional Limitations- Mobility/Gait Ambs with SPC, 1.25 miles with cane with spouse assist with inclines and declines. Personal Factors Other Personal Factors That May Effect Pt lives with spouse and son Therapy/Recovery who is a high functioning adult with autism, osteoporosis, intracranial meningioma. PT-OP-C Subjective Start: 03/18/22 12:11 Freq: Status: Active Protocol: Document 09/04/22 13:08 SP (Rec: 09/04/22 13:49 SP [id number]) OP-PT Subjective Patient Comments Patient Comments Pt reports trying not to over think her gait quality only soft R knee and heel toe. She states if she thinks to much about foot quaility then causes her to feel off balance just, thinks is getting better. Personal goal is to walk uneven surface: parkinglot, gravel, grass, [place] ideally without SPC support. PT-OP-D Balance Start: 03/18/22 12:11 Freq: Status: Active Protocol: Document 06/06/22 14:37 LRN (Rec: 06/06/22 17:14 LRN [id number]) [place] Balance Assessment Evaluation Sitting to Standing Ability Independent w/out Hands Unsupported Stance Safely- 2 minutes Sitting Unsupported, Feet on Floor Safely- 2 minutes Standing to Sitting Ability Safely, Minimal Hand Use Transfer Ability Safely, Minimal Hand Use Unsupported Stance- Eyes Closed Safely, 10 seconds Unsupported Stance- Eyes Open Independent, 1 minute Reaching Forward Standing Confidently, 10 inches Pick- Up Object From Floor Independent/Safe Look Behind Shoulder - Standing Shifts Weight Well Turning 360 Degrees Turns slowly, but safely Unsupported Stance, Alternating Feet on (I)- 8 Steps in 20 secs Stair Unsupported Tandem Stance Balance Lost- Step/Stand Unilateral Leg Stance Unable,assist to not fall Total Score [place] Total Score (out of 56 points) 46 [place] Impairment Rating 1 to 19% Impaired (Score 45-55 ) PT-OP-E Functional Tests Start: 03/18/22 12:11 Freq: Status: Active Protocol: Document 07/17/22 13:03 LRN (Rec: 07/17/22 13:48 LRN [id number]) Functional Tests 6 Minute Walk Test Distance 313 ft Device Used L SPC Comments Tennis shoes, cuing to not lock R knee into extension PT-OP-G Mobility & Gait Start: 03/18/22 12:11 Freq: Status: Active Protocol: Document 03/18/22 13:51 LRN (Rec: 03/18/22 14:42 LRN [id number]) OP Mobility Evaluation Transfers Sit to Stand Stand to sit sometime uncontrolled. Stands greater on LLE. OP Gait Assessment Gait Gait Assistance Required: Standby Assistance Able to Maintain Weight Bearing Status Yes During Gait Assistive Devices Assistive Device Gait Belt,Straight Cane Orthotic/Prosthetic Devices or Brace: No Gait Deviations General Gait Pattern Decreased Stride Length,Flexed Trunk,Lateral Trunk Lean,Wide Based Gait Factors Limiting Gait Function Factors Limiting Gait Function Abnormal Tonal Influences, Decreased Strength,Limited Range of Motion,Poor Balance Comments Gait Comments Circumducts R LE, R drop foot, holds trunk in R rot, R arm held in flexion contracture. PT-OP-H Neuro Start: 03/18/22 12:11 Freq: Status: Active Protocol: Document 03/18/22 13:51 LRN (Rec: 03/18/22 14:42 LRN [id number]) Sensation Evaluation Gross Sensation Gross Sensation WNL PT-OP-J Posture/Palpation/Skin Start: 03/18/22 12:11 Freq: Status: Active Protocol: Document 03/18/22 13:51 LRN (Rec: 03/18/22 14:42 LRN [id number]) Posture Evaluation Position Standing Head/C-Spine Posture Forward Head T-Spine Posture Rotation Right Shoulder Posture (L) Elevated Knee Posture (R) Genu Recurvatum Comments Posture Comments R handed. PT-OP-M Strength Start: 03/18/22 12:11 Freq: Status: Active Protocol: Document 05/30/22 14:31 LRN (Rec: 05/30/22 15:19 LRN [id number]) Ankle/Foot Strength Ankle and Foot Manual Muscle Testing Right Dorsiflexion (L4) 0 Zero Plantarflexion (S1) 2- Poor- Inversion 1 Trace Eversion (S1) 1 Trace Left Comments Generally 5/5 PT-OP-Q Treatments Start: 03/18/22 12:11 Freq: Status: Active Protocol: Document 09/04/22 13:08 SP (Rec: 09/04/22 13:49 SP [id number]) Gym Equipment Shuttle Recovery Unilateral Squats Details folded towel under forfoot R- support DF and glut/quad fac Resistance 37# L, 25# R Shuttle Recovery Platform Stable Reps/Time x10 Bilateral Squats Details cued soft R knee extension, no hyperextension Resistance 50# (old bands) Shuttle Recovery Platform Stable Reps/Time x10 Therapeutic Exercises Standing Exercises calf stretch Standing Exercise Name initiated in PT post shuttle press Equipment Used towel under forfoot, BUE on rail Reps/Minutes 30 x2 Comments good feedback stretch Gait Training Gait Activity R Knee control Description R knee flexion swing phase, eccentric heel strike, R elbow ext/swing wt'd Device Used SPC then nothing Level of Assistance Min cuing for // feet, elbow ext/ swing Surface Level Distance/Duration 23 min Treatment Focus R knee soft flexion swing phase, R LE extension to heel strike, R arm swing Comments cued tall posturing, RLE foot clearance, R elbow straight hand to floor (2# arm wt last 2 tx suggested by OT), soft knee midstance RLE during LLE advancement. Neuro Re-Education Treatment Balance Activities Alternate foot on step Details Alternate foot up on step Surface 8 step Equipment light contact 30% on HR during RLE stance time Reps/Duration 8 steps x 2 Comments did time today 09/04/22, 20-21 sec last assessed by PT. Standing Reach Details Standing Reach Reps/Duration 2x on L side Comments Extra time taken to for pt positioning and balance to perform. Pt able to reach 11 inches with LUE only. PT-OP-T Assessment and Plan Start: 03/18/22 12:11 Freq: Status: Active Protocol: Document 09/04/22 13:08 SP (Rec: 09/04/22 13:49 SP [id number]) Physical Therapy Assessment Goals Four Impairment Decreased standing dynamic balance. Impairment Pt requires railing UE support to step over objects. Short Term Goal (STG) Pt will be able to walk on different surfaces safely ( grass, soft sand or gravel to mimic cobblestones) with CGA> SBA. 03/21/22: [place] Balance Score is 44 (>35 is safe amb w/ assistive device, >45 is safe w/o assist device) 05/08/22: Walked on hard sand with spouse giving CGA. 05/22/22: Pt needs guarding and assist every ~10 steps, used to be every step. Walked on trampled grass by self for 10' and grass/gravel w/spouse giving CGA with 1-2x [place]. 06/06/22: [place] Balance Score is 46, safe amb w/o assist device. Pt demonstrating gait consistent with L CVA ( weakness and tone on RLE). : went to [employer] august walking on brick use cane cane in LUE and husbands arm on R. [place] inclines self w/ SPC LUE still assist approx 5%A. 08/26/22: progressing: CG-5%A ascend/descend incline gravel MAP bldg, cued small stepping, improved R quad/glut, continues quick LLE advancememt. She states she has to walk little slower during incline/decline [place] but feeling more confident less support required. STG Duration 09/19/22 progressing 08/26/22. Usp Goal (LTG) Pt will be able to step over 4 doorframe or other objects with use of SPC. 06/06/22: Pt able to step over 4 and 5 objects ( doorframe like) with use of SPC safely. LTG Duration 08/07/22 (06/06/22: MET GOAL) Three Impairment Decreased ability to walk up/ down inclines Impairment Requires arm hold assist when walking on an incline for safety. Short Term Goal (STG) Able to walk up/down a hill with CGA>SBA for safety. 05/08/22: Walking small incline on [place]. 05/22/22: Walking on [place] gentle hills (inclines/ declines) 4x. She can walk by self now. Spouse helps 1x each way, used to be all the time. Able to do inclines/ declines when weather is good and no wet leaves around. 07/28/22: [place] hold hand for stability decline but ok to do. Tx able ascend/descend uneven double mats/wedges CG/ MinAx1 w/SPC 08/26/22: progressing: CG-5%A through gait belt ascend/ descend incline gravel MAP bldg, cued small stepping, improved R quad/glut, continues quick LLE advancememt. She states she has to walk little slower during incline/decline [place] but feeling more confident less 's arm support required. STG Duration 11/07/22 PRogressing 08/26/22 Band Saw Operator Cake Cutting Goal (LTG) Pt will be able to walk on [place] with SBA and an adaptive device for the RLE ( AFO) as needed. 05/08/22: Pt walking with spouse on [place] with SBA and ankle support. 05/22/22: Pt walking w/spoulse [place] with SBA> independent/cane/ankle support ). LTG Duration 08/07/22 (: MET GOAL). One Impairment Lacks appropriate self care HEP. Impairment Gait speed: 1.33 ft/sec ( measured over 20' walking span ) Short Term Goal (STG) Pt will be independent and consistent with a self care HEP. 04/03/22: Mini squats & sit<> stand. 04/24/22: Asst'd ankle DF and IV; standing heel raises. 12/1/22: HEP: R knee strengthening ex for sitting flex/ext. 06/10/22: I/S pt in del knee flex and sitting hip flex/AD w/ankle EV strengthening 08/05/22: Pt appears to always have a good understanding of home ex's and is able to recall ex's issued. STG Duration 04/29/22 (08/05/22: MET GOAL) Usp Goal (LTG) Improve gait speed. 05/08/22: Gt speed with cane, ankle support/GB/SBA, 20ft/14 secs = 1.42 ft/sec. 05/22/22: Gt speed w/cane/ ankle support/SBA is 20'/12 secs = 1.67 ft/sec. 07/22/22: Gt speed w/cane/ ankle support/SBA/pt concentrating on gt mechanics is 20'/20 secs = 1.0 ft/sec. 08/26/22: gait speed: 538 ft in 6 min= 1.49ft/sec using SPC in LUE LTG Duration 11/07/22 progressing 08/26/22 Assessment Summary Assessment Cues to wt shift into each forward foot advancement for stability with awareness tall posuring, not to big stepping and awareness of R knee soft flexion during midstance, maintains 75% of the time. Physical Therapy Plan Frequency and Duration Frequency of Treatment 2x/Week Duration of treatment (weeks) 12 Plan of Care Start Date 08/08/22 Plan of Care End Date 11/07/22 Therapeutic Interventions Therapeutic Interventions Gait Training,Home Exercise Program,Neuromuscular Re- education,Patient/Caregiver Education,Self-Care/Home Management,Therapeutic Exercises Modalities Cold Pack/Ice Massage,Hot Packs Next Visit Focus/Plan Next Note Type Treatment Note Next Visit Plan Recheck step taps timing, 360 deg turn update, Repeat step ups, & strengthen RLE. Continue gait training long distance receiprocal eccentric and uneven surface mat. Recheck: Pt will talk to jesse YANG in June about possible need for R AFO for walking. POC: L CVA rehab. R knee/ankle (avoiding increasing R knee hyper ext tone) & core & pelvic strengthening, and ROM R ankle ex's (EV, cont DF), Balance training for weight shifting onto RLE and ambulation on incline/decline and uneven surfaces. Balance ex.
--- NOTE | 2022-09-09 16:28 | PT.OTN ---
Current Diagnoses Hyperlipidemia, unspecified (09/09/22) Essential (primary) hypertension (09/09/22) Muscle weakness (generalized) (09/09/22) Other specified disorders of muscle (09/09/22) Unsteadiness on feet (09/09/22) Other abnormalities of gait and mobility (09/09/22) Physical Therapy Treatment Note PT-OP-A Visit Information Start: 03/18/22 12:11 Freq: Status: Active Protocol: Document 09/09/22 15:23 LRN (Rec: 09/09/22 16:27 LRN [id number]) Out-Patient Physical Therapy Visit Information Visit Information Visit Type Treatment Note Visit Note 5 after PN Visit Start Time 15:23 Visit Stop Time 16:05 Total Visit Minutes 42 Visit Number 24 total, 05/10 Evaluation Information Evaluation Date 03/18/22 Precautions Precautions Osteoporosis, history of falls , HBP controlled by meds. PT-OP-B Current Condition Start: 03/18/22 12:11 Freq: Status: Active Protocol: Document 03/18/22 13:51 LRN (Rec: 03/18/22 14:42 LRN [id number]) Current Condition History of Current Condition Onset Date A few weeks ago referred for stroke rehab at pt request. L CVA 07/22/18 Current Complaints Hasn't had therapy in a yr. 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 States since stroke she has had therapy for a few months each year. Referred by Dr Jose Mcginnis at [facility], who will no longer be following her because he was a fill in physician. Has follow up visit with a physician in June 2022, who will be her primary care physician. Pt reports her walking is still unsteady and her R hand is useless. Pt will be receiving PT & OT. States hamstrings are begining to improve, feeling in her feet is improving, and the inner R ankle ms are getting stronger, so she is not rolling her R ankle any more. Pt complains she doesn't have big toes to help her balance because they curl in. If she steps on something unevenly then it causes her to loose her balance. When walking she looks down at the ground, and if she hears someone behind her, it causes her to tense up and decreases her balance ability because it is very distracting to her. Her balance when statioinary is good, but dynamically is not good. Prior Treatments and Tests See development section below. Developmental History Developmental History She continues to make progress and feels therapy seems to help. Stoke in 07/22/2018 in [place]. Was in intensive care a few days, hospital a week and rehab inpt for 1 month. Home health the following month and outpatient OT/PT from September-Feb 2019. Started therapy again 06/2019 to 10/2019. Fall 08/03/19 with concusion. In 2020 had outpt PT 07/12 to 11/09. Treatment Goals Patient/Caregiver Goals Pt goals: Able to walk up/down hill. Currently she needs to hand onto someone if she is on a incline. Wants to walk on [place] without help. Wants to walk on different surfaces safely (grass, soft sand or gravel, cobblestones). Improve gait stability and speed. Able to step over 4 doorframe or other objects. Prior Functional Status Baseline Function- ADL's Independent Baseline Function- Mobility Independent Baseline Function- Work/School Homemaker. Current Functional Impairments (Reported) Functional Limitations- ADL's Past 2 months walks 1.25 miles 6 days/week. Other exercise is housework. Before walking on trails was doing modified yoga and Pilates exercise daily. Functional Limitations- Mobility/Gait Ambs with SPC, 1.25 miles with cane with spouse assist with inclines and declines. Personal Factors Other Personal Factors That May Effect Pt lives with spouse and son Therapy/Recovery who is a high functioning adult with autism, osteoporosis, intracranial meningioma. PT-OP-C Subjective Start: 03/18/22 12:11 Freq: Status: Active Protocol: Document 09/09/22 15:23 LRN (Rec: 09/09/22 16:27 LRN [id number]) OP-PT Subjective Patient Comments Patient Comments Using a small wedge under toes to do squats and sit<>stand, forcing R knee from locking straight. PT-OP-D Balance Start: 03/18/22 12:11 Freq: Status: Active Protocol: Document 06/06/22 14:37 LRN (Rec: 06/06/22 17:14 LRN [id number]) [place] Balance Assessment Evaluation Sitting to Standing Ability Independent w/out Hands Unsupported Stance Safely- 2 minutes Sitting Unsupported, Feet on Floor Safely- 2 minutes Standing to Sitting Ability Safely, Minimal Hand Use Transfer Ability Safely, Minimal Hand Use Unsupported Stance- Eyes Closed Safely, 10 seconds Unsupported Stance- Eyes Open Independent, 1 minute Reaching Forward Standing Confidently, 10 inches Pick- Up Object From Floor Independent/Safe Look Behind Shoulder - Standing Shifts Weight Well Turning 360 Degrees Turns slowly, but safely Unsupported Stance, Alternating Feet on (I)- 8 Steps in 20 secs Stair Unsupported Tandem Stance Balance Lost- Step/Stand Unilateral Leg Stance Unable,assist to not fall Total Score R[place]ford Total Score (out of 56 points) 46 [place] Impairment Rating 1 to 19% Impaired (Score 45-55 ) PT-OP-E Functional Tests Start: 03/18/22 12:11 Freq: Status: Active Protocol: Document 07/17/22 13:03 LRN (Rec: 07/17/22 13:48 LRN [id number]) Functional Tests 6 Minute Walk Test Distance 313 ft Device Used L SPC Comments Tennis shoes, cuing to not lock R knee into extension PT-OP-G Mobility & Gait Start: 03/18/22 12:11 Freq: Status: Active Protocol: Document 03/18/22 13:51 LRN (Rec: 03/18/22 14:42 LRN [id number]) OP Mobility Evaluation Transfers Sit to Stand Stand to sit sometime uncontrolled. Stands greater on LLE. OP Gait Assessment Gait Gait Assistance Required: Standby Assistance Able to Maintain Weight Bearing Status Yes During Gait Assistive Devices Assistive Device Gait Belt,Straight Cane Orthotic/Prosthetic Devices or Brace: No Gait Deviations General Gait Pattern Decreased Stride Length,Flexed Trunk,Lateral Trunk Lean,Wide Based Gait Factors Limiting Gait Function Factors Limiting Gait Function Abnormal Tonal Influences, Decreased Strength,Limited Range of Motion,Poor Balance Comments Gait Comments Circumducts R LE, R drop foot, holds trunk in R rot, R arm held in flexion contracture. PT-OP-H Neuro Start: 03/18/22 12:11 Freq: Status: Active Protocol: Document 03/18/22 13:51 LRN (Rec: 03/18/22 14:42 LRN [id number]) Sensation Evaluation Gross Sensation Gross Sensation WNL PT-OP-J Posture/Palpation/Skin Start: 03/18/22 12:11 Freq: Status: Active Protocol: Document 03/18/22 13:51 LRN (Rec: 03/18/22 14:42 LRN [id number]) Posture Evaluation Position Standing Head/C-Spine Posture Forward Head T-Spine Posture Rotation Right Shoulder Posture (L) Elevated Knee Posture (R) Genu Recurvatum Comments Posture Comments R handed. PT-OP-M Strength Start: 03/18/22 12:11 Freq: Status: Active Protocol: Document 05/30/22 14:31 LRN (Rec: 05/30/22 15:19 LRN [id number]) Ankle/Foot Strength Ankle and Foot Manual Muscle Testing Right Dorsiflexion (L4) 0 Zero Plantarflexion (S1) 2- Poor- Inversion 1 Trace Eversion (S1) 1 Trace Left Comments Generally 5/5 PT-OP-Q Treatments Start: 03/18/22 12:11 Freq: Status: Active Protocol: Document 09/09/22 15:23 LRN (Rec: 09/09/22 16:27 LRN [id number]) Gym Equipment Shuttle Recovery Bilateral Squats Details cued soft R knee extension, no hyperextension Resistance 50# (old bands) Shuttle Recovery Platform Stable Reps/Time x10 Gait Training Gait Activity R Knee control Description SLS RLE, R knee flexion swing phase Device Used SPC then nothing Level of Assistance Min cuing for // feet, elbow ext/ swing Surface Level Distance/Duration 23 min Treatment Focus R knee soft flexion swing phase, R LE extension to heel strike, R arm swing Comments cued tall posturing, RLE foot clearance, R elbow straight hand to floor (2# arm wt last 2 tx suggested by OT), soft knee midstance RLE during LLE advancement. Neuro Re-Education Treatment Balance Activities Bouncing on trampoline Details Bend/straighten knees on trampoline with CGA holding R hand to bar Equipment Shuttle Rebounder-trampoline Reps/Duration 5' Alternate foot on step Details Alternate foot up on step Surface 8 step Equipment light contact 30% on HR during RLE stance time Reps/Duration 12 steps x 2 Comments Assist for R hip flex and focus on getting knee flexion. did time today 09/04/22, 20-21 sec last assessed by PT. PT-OP-T Assessment and Plan Start: 03/18/22 12:11 Freq: Status: Active Protocol: Document 09/09/22 15:23 LRN (Rec: 09/09/22 16:27 LRN [id number]) Physical Therapy Assessment Goals Four Impairment Decreased standing dynamic balance. Impairment Pt requires railing UE support to step over objects. Short Term Goal (STG) Pt will be able to walk on different surfaces safely ( grass, soft sand or gravel to mimic cobblestones) with CGA> SBA. 03/21/22: [place]ORD Balance Score is 44 (>35 is safe amb w/ assistive device, >45 is safe w/o assist device) 05/08/22: Walked on hard sand with spouse giving CGA. 05/22/22: Pt needs guarding and assist every ~10 steps, used to be every step. Walked on trampled grass by self for 10' and grass/gravel w/spouse giving CGA with 1-2x [place]. 06/06/22: [place]ORD Balance Score is 46, safe amb w/o assist device. Pt demonstrating gait consistent with L CVA ( weakness and tone on RLE). : went to aug[place] walking on brick use cane cane in LUE and husbands arm on R. [place] inclines self w/ SPC LUE still assist approx 5%A. 08/26/22: progressing: CG-5%A ascend/descend incline gravel MAP bldg, cued small stepping, improved R quad/glut, continues quick LLE advancememt. She states she has to walk little slower during incline/decline [place] but feeling more confident less support required. 09/09/22: Walked on carpet ramp yesterday. Walks slow because she is thinking too much on mechanics of gait, so spouse has been helping her more. STG Duration 09/19/22 progressing 09/09/22. Hop Sorter Goal (LTG) Pt will be able to step over 4 doorframe or other objects with use of SPC. 06/06/22: Pt able to step over 4 and 5 objects ( doorframe like) with use of SPC safely. LTG Duration 08/07/22 (06/06/22: MET GOAL) Three Impairment Decreased ability to walk up/ down inclines Impairment Requires arm hold assist when walking on an incline for safety. Short Term Goal (STG) Able to walk up/down a hill with CGA>SBA for safety. 05/08/22: Walking small incline on [place]. 05/22/22: Walking on [place] gentle hills (inclines/ declines) 4x. She can walk by self now. Spouse helps 1x each way, used to be all the time. Able to do inclines/ declines when weather is good and no wet leaves around. 07/28/22: [place] hold hand for stability decline but ok to do. Tx able ascend/descend uneven double mats/wedges CG/ MinAx1 w/SPC 08/26/22: progressing: CG-5%A through gait belt ascend/ descend incline gravel MAP bldg, cued small stepping, improved R quad/glut, continues quick LLE advancememt. She states she has to walk little slower during incline/decline [place] but feeling more confident less 's arm support required. STG Duration 11/07/22 progressing 08/26/22 Hop Sorter Goal (LTG) Pt will be able to walk on [place] with SBA and an adaptive device for the RLE ( AFO) as needed. 05/08/22: Pt walking with spouse on [place] with SBA and ankle support. 05/22/22: Pt walking w/spoulse [place] with SBA> independent/cane/ankle support ). 09/09/22: Visual distraction with gait is worse, so spouse holds her when walking if someone is going to pass by; otherwise he doen't hold onto her. She is walking 1 mile vs 1.t miles due to taking smaller steps lengths. LTG Duration 08/07/22 (: MET GOAL). One Impairment Lacks appropriate self care HEP. Impairment Gait speed: 1.33 ft/sec ( measured over 20' walking span ) Short Term Goal (STG) Pt will be independent and consistent with a self care HEP. 04/03/22: Mini squats & sit<> stand. 04/24/22: Asst'd ankle DF and IV; standing heel raises. 05/22/22: HEP: R knee strengthening ex for sitting flex/ext. 06/10/22: I/S pt in del knee flex and sitting hip flex/AD w/ankle EV strengthening 08/05/22: Pt appears to always have a good understanding of home ex's and is able to recall ex's issued. STG Duration 04/29/22 (08/05/22: MET GOAL) Mcc Goal (LTG) Improve gait speed. 05/08/22: Gt speed with cane, ankle support/GB/SBA, 20ft/14 secs = 1.42 ft/sec. 05/22/22: Gt speed w/cane/ ankle support/SBA is 20'/12 secs = 1.67 ft/sec. 07/22/22: Gt speed w/cane/ ankle support/SBA/pt concentrating on gt mechanics is 20'/20 secs = 1.0 ft/sec. 08/26/22: gait speed: 538 ft in 6 min= 1.49ft/sec using SPC in LUE LTG Duration 11/07/22 (09/09/22: MET GOAL ) Assessment Summary Assessment Goal # 1 MET for improved gait speed from initial of 1.33 ft /sec to 1.49ft/sec using SPC in LUE. Pt is progressing in her ability to walk up/down inclines and on [place] with SBA (last session CG-5%A ascend/descend incline gravel MAP bldg) and an adaptive device for the RLE (AFO) and assist approx 5%A. Pt goals almost met. Pt walks with hyperextension of R knee unless cued. Pt educated in cost of constant hyper extension of the knee with gait; therefore further training is needed with gait to improve gt mechanics to decrease R knee hyperextension w/gait. Pt does not appear to want another AFO with gait since she has soft ankle brace to assist with keeping R foot in neutral vs. having foot drop. Physical Therapy Plan Frequency and Duration Frequency of Treatment 2x/Week Duration of treatment (weeks) 12 Plan of Care Start Date 08/08/22 Plan of Care End Date 11/07/22 Next Visit Focus/Plan Next Note Type Treatment Note Next Visit Plan Recheck step taps timing, 360 deg turn update, Strengthen RLE. Continue gait training long distance reciprocal eccentric and uneven surface mat with soft R knee (no hyperextension ). POC: L CVA rehab. R knee/ankle (avoiding increasing R knee hyper ext tone) & core & pelvic strengthening, ROM R ankle ex' s (EV, DF), Balance training for ambulation on incline/decline and uneven surfaces.
--- NOTE | 2022-09-16 11:15 | PT.OTN ---
Current Diagnoses Hyperlipidemia, unspecified (09/16/22) Essential (primary) hypertension (09/16/22) Muscle weakness (generalized) (09/16/22) Other specified disorders of muscle (09/16/22) Unsteadiness on feet (09/16/22) Other abnormalities of gait and mobility (09/16/22) Physical Therapy Treatment Note PT-OP-A Visit Information Start: 03/18/22 12:11 Freq: Status: Active Protocol: Document 09/16/22 10:34 SP (Rec: 09/16/22 11:21 SP [id number]) Out-Patient Physical Therapy Visit Information Visit Information Visit Type Treatment Note Visit Note 6 after PN Visit Start Time 10:34 Visit Stop Time 11:15 Total Visit Minutes 41 Visit Number 25 total, 06/09 Number of ABRASIVE GRINDER Visits 1 Evaluation Information Evaluation Date 03/18/22 Precautions Precautions Osteoporosis, history of falls , HBP controlled by meds. PT-OP-B Current Condition Start: 03/18/22 12:11 Freq: Status: Active Protocol: Document 03/18/22 13:51 LRN (Rec: 03/18/22 14:42 LRN [id number]) Current Condition History of Current Condition Onset Date A few weeks ago referred for stroke rehab at pt request. L CVA 07/22/18 Current Complaints Hasn't had therapy in a yr. 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 States since stroke she has had therapy for a few months each year. Referred by Dr Jose Mcginnis at [facility], who will no longer be following her because he was a fill in physician. Has follow up visit with a physician in June 2022, who will be her primary care physician. Pt reports her walking is still unsteady and her R hand is useless. Pt will be receiving PT & OT. States hamstrings are begining to improve, feeling in her feet is improving, and the inner R ankle ms are getting stronger, so she is not rolling her R ankle any more. Pt complains she doesn't have big toes to help her balance because they curl in. If she steps on something unevenly then it causes her to loose her balance. When walking she looks down at the ground, and if she hears someone behind her, it causes her to tense up and decreases her balance ability because it is very distracting to her. Her balance when statioinary is good, but dynamically is not good. Prior Treatments and Tests See development section below. Developmental History Developmental History She continues to make progress and feels therapy seems to help. Stoke in 07/22/2018 in [place]. Was in intensive care a few days, hospital a week and rehab inpt for 1 month. Home health the following month and outpatient OT/PT from September-Feb 2019. Started therapy again 06/2019 to 10/2019. Fall 08/03/19 with concusion. In 2020 had outpt PT 07/12 to 11/09. Treatment Goals Patient/Caregiver Goals Pt goals: Able to walk up/down hill. Currently she needs to hand onto someone if she is on a incline. Wants to walk on [place] without help. Wants to walk on different surfaces safely (grass, soft sand or gravel, cobblestones). Improve gait stability and speed. Able to step over 4 doorframe or other objects. Prior Functional Status Baseline Function- ADL's Independent Baseline Function- Mobility Independent Baseline Function- Work/School Homemaker. Current Functional Impairments (Reported) Functional Limitations- ADL's Past 2 months walks 1.25 miles 6 days/week. Other exercise is housework. Before walking on trails was doing modified yoga and Pilates exercise daily. Functional Limitations- Mobility/Gait Ambs with SPC, 1.25 miles with cane with spouse assist with inclines and declines. Personal Factors Other Personal Factors That May Effect Pt lives with spouse and son Therapy/Recovery who is a high functioning adult with autism, osteoporosis, intracranial meningioma. PT-OP-C Subjective Start: 03/18/22 12:11 Freq: Status: Active Protocol: Document 09/16/22 10:34 SP (Rec: 09/16/22 11:21 SP [id number]) OP-PT Subjective Patient Comments Patient Comments Pt reports feeling off balance during distractions gait on trail, has to hold R UE for safety until someone passes PT-OP-D Balance Start: 03/18/22 12:11 Freq: Status: Active Protocol: Document 06/06/22 14:37 LRN (Rec: 06/06/22 17:14 LRN [id number]) [place] Balance Assessment Evaluation Sitting to Standing Ability Independent w/out Hands Unsupported Stance Safely- 2 minutes Sitting Unsupported, Feet on Floor Safely- 2 minutes Standing to Sitting Ability Safely, Minimal Hand Use Transfer Ability Safely, Minimal Hand Use Unsupported Stance- Eyes Closed Safely, 10 seconds Unsupported Stance- Eyes Open Independent, 1 minute Reaching Forward Standing Confidently, 10 inches Pick- Up Object From Floor Independent/Safe Look Behind Shoulder - Standing Shifts Weight Well Turning 360 Degrees Turns slowly, but safely Unsupported Stance, Alternating Feet on (I)- 8 Steps in 20 secs Stair Unsupported Tandem Stance Balance Lost- Step/Stand Unilateral Leg Stance Unable,assist to not fall Total Score [place] Total Score (out of 56 points) 46 [place] Impairment Rating 1 to 19% Impaired (Score 45-55 ) PT-OP-E Functional Tests Start: 03/18/22 12:11 Freq: Status: Active Protocol: Document 07/17/22 13:03 LRN (Rec: 07/17/22 13:48 [facility] [id number]) Functional Tests 6 Minute Walk Test Distance 313 ft Device Used L SPC Comments Tennis shoes, cuing to not lock R knee into extension PT-OP-G Mobility & Gait Start: 03/18/22 12:11 Freq: Status: Active Protocol: Document 03/18/22 13:51 LRN (Rec: 03/18/22 14:42 LR [id number]) OP Mobility Evaluation Transfers Sit to Stand Stand to sit sometime uncontrolled. Stands greater on LLE. OP Gait Assessment Gait Gait Assistance Required: Standby Assistance Able to Maintain Weight Bearing Status Yes During Gait Assistive Devices Assistive Device Gait Belt,Straight Cane Orthotic/Prosthetic Devices or Brace: No Gait Deviations General Gait Pattern Decreased Stride Length,Flexed Trunk,Lateral Trunk Lean,Wide Based Gait Factors Limiting Gait Function Factors Limiting Gait Function Abnormal Tonal Influences, Decreased Strength,Limited Range of Motion,Poor Balance Comments Gait Comments Circumducts R LE, R drop foot, holds trunk in R rot, R arm held in flexion contracture. PT-OP-H Neuro Start: 03/18/22 12:11 Freq: Status: Active Protocol: Document 03/18/22 13:51 LRN (Rec: 03/18/22 14:42 [facility] [id number]) Sensation Evaluation Gross Sensation Gross Sensation WNL PT-OP-J Posture/Palpation/Skin Start: 03/18/22 12:11 Freq: Status: Active Protocol: Document 03/18/22 13:51 LRN (Rec: 03/18/22 14:42 LRN [id number]) Posture Evaluation Position Standing Head/C-Spine Posture Forward Head T-Spine Posture Rotation Right Shoulder Posture (L) Elevated Knee Posture (R) Genu Recurvatum Comments Posture Comments R handed. PT-OP-M Strength Start: 03/18/22 12:11 Freq: Status: Active Protocol: Document 05/30/22 14:31 LRN (Rec: 05/30/22 15:19 LRN [id number]) Ankle/Foot Strength Ankle and Foot Manual Muscle Testing Right Dorsiflexion (L4) 0 Zero Plantarflexion (S1) 2- Poor- Inversion 1 Trace Eversion (S1) 1 Trace Left Comments Generally 5/5 PT-OP-Q Treatments Start: 03/18/22 12:11 Freq: Status: Active Protocol: Document 09/16/22 10:34 SP (Rec: 09/16/22 11:21 SP [id number]) Gym Equipment Shuttle Rebound trampoline Exercise Details BUE on rail (neuro) Reps/Duration 5 min total Comments 1. bouncing 2. mini squat 3. marching 4. heel raises Improved R soft knee positioning throughouts, occasional cuing for space between B knees Gait Training Gait Activity uneven incline/decline Description MAP bldg incline gravel asc/ descend Device Used SPC LUE Level of Assistance CGA for safety Distance/Duration 15 min Treatment Focus R foot clearance, RLE WB soft knee and heel toe advancement Comments cued soft R knee and not large step LLE to allow wt shift, intensional R knee/hip flexion advancement into WB, no lock R knee R Knee control Description SLS RLE, R knee flexion swing phase Device Used no AD Level of Assistance Min cuing for // feet, elbow ext/ swing Surface Level Distance/Duration 23 min Treatment Focus R knee soft flexion swing phase, R LE extension to heel strike, R arm swing Comments cued tall posturing, RLE mya 55-60 RPM , R elbow straight hand to floor (2# arm wt last 2 tx suggested by OT) , soft knee midstance RLE during LLE advancement. Neuro Re-Education Treatment Balance Activities Bouncing on trampoline Comments see gym equipment (neuro) PT-OP-T Assessment and Plan Start: 03/18/22 12:11 Freq: Status: Active Protocol: Document 09/16/22 10:34 SP (Rec: 09/16/22 11:21 SP [id number]) Physical Therapy Assessment Goals Four Impairment Decreased standing dynamic balance. Impairment Pt requires railing UE support to step over objects. Short Term Goal (STG) Pt will be able to walk on different surfaces safely ( grass, soft sand or gravel to mimic cobblestones) with CGA> SBA. 03/21/22: [place] Balance Score is 44 (>35 is safe amb w/ assistive device, >45 is safe w/o assist device) 05/08/22: Walked on hard sand with spouse giving CGA. 05/22/22: Pt needs guarding and assist every ~10 steps, used to be every step. Walked on trampled grass by self for 10' and grass/gravel w/spouse giving CGA with 1-2x [place]. 06/06/22: [place] Balance Score is 46, safe amb w/o assist device. Pt demonstrating gait consistent with L CVA ( weakness and tone on RLE). : went to [place] walking on brick use cane cane in LUE and husbands arm on R. [place] inclines self w/ SPC LUE still assist approx 5%A. 08/26/22: progressing: CG-5%A ascend/descend incline gravel MAP bldg, cued small stepping, improved R quad/glut, continues quick LLE advancememt. She states she has to walk little slower during incline/decline [place] but feeling more confident less support required. 09/09/22: Walked on carpet ramp yesterday. Walks slow because she is thinking too much on mechanics of gait, so spouse has been helping her more. 09/16/22: progressing: pt able to ascend/descend uneven and inclined/declined gravel outside clinic, CGA/close SBA, cues for less LLE stride, good soft knee. STG Duration 09/19/22 progressing 09/16/22. Behavioral Health Director Goal (LTG) Pt will be able to step over 4 doorframe or other objects with use of SPC. 06/06/22: Pt able to step over 4 and 5 objects ( doorframe like) with use of SPC safely. LTG Duration 08/07/22 (06/06/22: MET GOAL) Three Impairment Decreased ability to walk up/ down inclines Impairment Requires arm hold assist when walking on an incline for safety. Short Term Goal (STG) Able to walk up/down a hill with CGA>SBA for safety. 05/08/22: Walking small incline on [place]. 05/22/22: Walking on [place] gentle hills (inclines/ declines) 4x. She can walk by self now. Spouse helps 1x each way, used to be all the time. Able to do inclines/ declines when weather is good and no wet leaves around. 07/28/22: [place] hold hand for stability decline but ok to do. Tx able ascend/descend uneven double mats/wedges CG/ MinAx1 w/SPC 08/26/22: progressing: CG-5%A through gait belt ascend/ descend incline gravel MAP bldg, cued small stepping, improved R quad/glut, continues quick LLE advancememt. She states she has to walk little slower during incline/decline [place] but feeling more confident less 's arm support required. 09/16/22: pt reports has to stop when persons passing, feeling nervous. STG Duration 11/07/22 progressing 09/16/22 Shelter Goal (LTG) Pt will be able to walk on [place] with SBA and an adaptive device for the RLE ( AFO) as needed. 05/08/22: Pt walking with spouse on [place] with SBA and ankle support. 05/22/22: Pt walking w/spoulse [place] with SBA> independent/cane/ankle support ). 09/09/22: Visual distraction with gait is worse, so spouse holds her when walking if someone is going to pass by; otherwise he doen't hold onto her. She is walking 1 mile vs 1.t miles due to taking smaller steps lengths. LTG Duration 08/07/22 (: MET GOAL). Assessment Summary Assessment Pt improved receiprocal stepping level surfaces uneven gravel incline/decline outdoors with cues for scap complex and core awareness with intensional RLE knee/hip flexion swing phase and eccentric heel toe demonstrated soft R knee throughout tx. Pt was able to incorporate head turns with noted decrease pacing but no trunk deviations during hallway gait. She brief stop when passing person in hallway but 2nd person able to continue stepping for carryover on community gait on [employer] [place]. Physical Therapy Plan Frequency and Duration Frequency of Treatment 2x/Week Duration of treatment (weeks) 12 Plan of Care Start Date 08/08/22 Plan of Care End Date 11/07/22 Therapeutic Interventions Therapeutic Interventions Gait Training,Home Exercise Program,Neuromuscular Re- education,Patient/Caregiver Education,Self-Care/Home Management,Therapeutic Exercises Modalities Cold Pack/Ice Massage,Hot Packs Next Visit Focus/Plan Next Note Type Discharge Summary Next Visit Plan Next tx: Recheck step taps timing, 360 deg turn update, Strengthen RLE. Ask if able to incorporate gait training long distance reciprocal eccentric and uneven surfaces when out of town as performed in PT last tx. POC: L CVA rehab. R knee/ankle (avoiding increasing R knee hyper ext tone) & core & pelvic strengthening, ROM R ankle ex' s (EV, DF), Balance training for ambulation on incline/decline and uneven surfaces.
--- NOTE | 2022-10-03 17:28 | PT.OTN ---
Current Diagnoses Hyperlipidemia, unspecified (10/03/22) Essential (primary) hypertension (10/03/22) Muscle weakness (generalized) (10/03/22) Other specified disorders of muscle (10/03/22) Unsteadiness on feet (10/03/22) Other abnormalities of gait and mobility (10/03/22) Physical Therapy Treatment Note PT-OP-A Visit Information Start: 03/18/22 12:11 Freq: Status: Active Protocol: Document 10/03/22 09:53 LRN (Rec: 10/03/22 10:39 LRN [id number]) Out-Patient Physical Therapy Visit Information Visit Information Visit Type Treatment Note Visit Note 7 after PN Visit Start Time 09:53 Visit Stop Time 10:36 Total Visit Minutes 43 Visit Number 26 total, Number of SCOURING PADS SUPERVISOR Visits 1 Evaluation Information Evaluation Date 03/18/22 Precautions Precautions Osteoporosis, history of falls , HBP controlled by meds. PT-OP-B Current Condition Start: 03/18/22 12:11 Freq: Status: Active Protocol: Document 03/18/22 13:51 LRN (Rec: 03/18/22 14:42 LRN [id number]) Current Condition History of Current Condition Onset Date A few weeks ago referred for stroke rehab at pt request. L CVA 07/22/18 Current Complaints Hasn't had therapy in a yr. 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 States since stroke she has had therapy for a few months each year. Referred by Dr Jose Mcginnis at [facility], who will no longer be following her because he was a fill in physician. Has follow up visit with a physician in June 2022, who will be her primary care physician. Pt reports her walking is still unsteady and her R hand is useless. Pt will be receiving PT & OT. States hamstrings are begining to improve, feeling in her feet is improving, and the inner R ankle ms are getting stronger, so she is not rolling her R ankle any more. Pt complains she doesn't have big toes to help her balance because they curl in. If she steps on something unevenly then it causes her to loose her balance. When walking she looks down at the ground, and if she hears someone behind her, it causes her to tense up and decreases her balance ability because it is very distracting to her. Her balance when statioinary is good, but dynamically is not good. Prior Treatments and Tests See development section below. Developmental History Developmental History She continues to make progress and feels therapy seems to help. Stoke in 07/22/2018 in [place]. Was in intensive care a few days, hospital a week and rehab in for 1 month. Home health the following month and outpatient OT/PT from September-Feb 2019. Started therapy again 06/2019 to 10/2019. Fall 08/03/19 with concusion. In 2020 had outpt PT 07/12 to 11/09. Treatment Goals Patient/Caregiver Goals Pt goals: Able to walk up/down hill. Currently she needs to hand onto someone if she is on a incline. Wants to walk on [place] without help. Wants to walk on different surfaces safely (grass, soft sand or gravel, cobblestones). Improve gait stability and speed. Able to step over 4 doorframe or other objects. Prior Functional Status Baseline Function- ADL's Independent Baseline Function- Mobility Independent Baseline Function- Work/School Homemaker. Current Functional Impairments (Reported) Functional Limitations- ADL's Past 2 months walks 1.25 miles 6 days/week. Other exercise is housework. Before walking on trails was doing modified yoga and Pilates exercise daily. Functional Limitations- Mobility/Gait Ambs with SPC, 1.25 miles with cane with spouse assist with inclines and declines. Personal Factors Other Personal Factors That May Effect Pt lives with spouse and son Therapy/Recovery who is a high functioning adult with autism, osteoporosis, intracranial meningioma. PT-OP-C Subjective Start: 03/18/22 12:11 Freq: Status: Active Protocol: Document 10/03/22 09:53 LRN (Rec: 10/03/22 10:39 LRN [id number]) OP-PT Subjective Patient Comments Patient Comments States she returned from a trip. Found it hard to encorporate training into gait on trip, but felt on the trip she was able to deal with different walking surfaces and now feels she is more ready to encorporate the training into her gait. Patient Questionnaires ABC- Activity Specific Balance Confidence Scale ABC Score 75 ABC Functional Impairment 20 to <40% Impaired (Score 61- 80) PT-OP-D Balance Start: 03/18/22 12:11 Freq: Status: Active Protocol: Document 06/06/22 14:37 LRN (Rec: 06/06/22 17:14 LRN [id number]) Rutherford Balance Assessment Evaluation Sitting to Standing Ability Independent w/out Hands Unsupported Stance Safely- 2 minutes Sitting Unsupported, Feet on Floor Safely- 2 minutes Standing to Sitting Ability Safely, Minimal Hand Use Transfer Ability Safely, Minimal Hand Use Unsupported Stance- Eyes Closed Safely, 10 seconds Unsupported Stance- Eyes Open Independent, 1 minute Reaching Forward Standing Confidently, 10 inches Pick- Up Object From Floor Independent/Safe Look Behind Shoulder - Standing Shifts Weight Well Turning 360 Degrees Turns slowly, but safely Unsupported Stance, Alternating Feet on (I)- 8 Steps in 20 secs Stair Unsupported Tandem Stance Balance Lost- Step/Stand Unilateral Leg Stance Unable,assist to not fall Total Score Rutherford Total Score (out of 56 points) 46 Rutherford Impairment Rating 1 to 19% Impaired (Score 45-55 ) PT-OP-E Functional Tests Start: 03/18/22 12:11 Freq: Status: Active Protocol: Document 07/17/22 13:03 LRN (Rec: 07/17/22 13:48 LRN [id number]) Functional Tests 6 Minute Walk Test Distance 313 ft Device Used L SPC Comments Tennis shoes, cuing to not lock R knee into extension PT-OP-G Mobility & Gait Start: 03/18/22 12:11 Freq: Status: Active Protocol: Document 03/18/22 13:51 LRN (Rec: 03/18/22 14:42 LRN [id number]) OP Mobility Evaluation Transfers Sit to Stand Stand to sit sometime uncontrolled. Stands greater on LLE. OP Gait Assessment Gait Gait Assistance Required: Standby Assistance Able to Maintain Weight Bearing Status Yes During Gait Assistive Devices Assistive Device Gait Belt,Straight Cane Orthotic/Prosthetic Devices or Brace: No Gait Deviations General Gait Pattern Decreased Stride Length,Flexed Trunk,Lateral Trunk Lean,Wide Based Gait Factors Limiting Gait Function Factors Limiting Gait Function Abnormal Tonal Influences, Decreased Strength,Limited Range of Motion,Poor Balance Comments Gait Comments Circumducts R LE, R drop foot, holds trunk in R rot, R arm held in flexion contracture. PT-OP-H Neuro Start: 03/18/22 12:11 Freq: Status: Active Protocol: Document 03/18/22 13:51 LRN (Rec: 03/18/22 14:42 LRN [id number]) Sensation Evaluation Gross Sensation Gross Sensation WNL PT-OP-J Posture/Palpation/Skin Start: 03/18/22 12:11 Freq: Status: Active Protocol: Document 03/18/22 13:51 LRN (Rec: 03/18/22 14:42 LRN [id number]) Posture Evaluation Position Standing Head/C-Spine Posture Forward Head T-Spine Posture Rotation Right Shoulder Posture (L) Elevated Knee Posture (R) Genu Recurvatum Comments Posture Comments R handed. PT-OP-M Strength Start: 03/18/22 12:11 Freq: Status: Active Protocol: Document 05/30/22 14:31 LRN (Rec: 05/30/22 15:19 LRN [id number]) Ankle/Foot Strength Ankle and Foot Manual Muscle Testing Right Dorsiflexion (L4) 0 Zero Plantarflexion (S1) 2- Poor- Inversion 1 Trace Eversion (S1) 1 Trace Left Comments Generally 5/5 PT-OP-Q Treatments Start: 03/18/22 12:11 Freq: Status: Active Protocol: Document 10/03/22 09:53 LRN (Rec: 10/03/22 10:39 LRN [id number]) Cardio Equipment Recumbent Bicycle Duration (Minutes) 8 Resistance 1 Seat Position 1 Other Extra time taken to strap R foot to pedal, Lifting legs vs pushing legs. Therapeutic Exercises Sitting Exercises Knee flex Sitting Exercise Name Review of best ex for strengthening of knee flexion Reps/Minutes 2' Comments Knee flex sitting or chair scoots vs sitting hip flex. Standing Exercises step up/back down Standing Exercise Name Step taps for hip flexion Side right Equipment Used 4 step Reps/Minutes 5' Comments Cuing for straight lift without circumduction. Gait Training Gait Activity Gait training Description Gait for decrease in circumduction of R LE during swing through phase. Device Used Cane Level of Assistance V cuing Surface Level Distance/Duration 6' Comments Gait training walking between treatment areas. Neuro Re-Education Treatment Balance Activities Alternate foot on step Details Step taps w/o rail and w/rail Surface 6 step Equipment GB, w/o rail, and w/rail Reps/Duration 8 taps x 2 each condition Comments w/o rail: 8 steps in 16 secs. w/rail: 12 secs. Extra time to practice proper lift of R LE. Turning 360 deg's Details Turning 360 deg's with and w/o cane Reps/Duration 1x each direction and each condition Comments Pt took secs to turn w/o cane: L 7 secs, R 5 secs. Secs to turn w/cane: L 8 secs, R 5 secs. Self-Care/Home Management Treatment Education Patient Education Home Exercise Program Activities Self-Care/Home Management Activities Issued & reviewed HEP: Standing hip flexion to be done as balance exercise. I/ S to hold onto secure object/ rail, holding on as needed for balance for safety. PT-OP-T Assessment and Plan Start: 03/18/22 12:11 Freq: Status: Active Protocol: Document 10/03/22 09:53 LRN (Rec: 10/03/22 10:39 LRN [id number]) Physical Therapy Assessment Goals Four Impairment Decreased standing dynamic balance. Impairment Pt requires railing UE support to step over objects. Short Term Goal (STG) Pt will be able to walk on different surfaces safely ( grass, soft sand or gravel to mimic cobblestones) with CGA> SBA. 03/21/22: RUTHERFORD Balance Score is 44 (>35 is safe amb w/ assistive device, >45 is safe w/o assist device) 05/08/22: Walked on hard sand with spouse giving CGA. 05/22/22: Pt needs guarding and assist every ~10 steps, used to be every step. Walked on trampled grass by self for 10' and grass/gravel w/spouse giving CGA with 1-2x Odalys. 06/06/22: RUTHERFORD Balance Score is 46, safe amb w/o assist device. Pt demonstrating gait consistent with L CVA ( weakness and tone on RLE). : went to august walking on brick use cane cane in LUE and husbands arm on R. [place] inclines self w/ SPC LUE still assist approx 5%A. 08/26/22: progressing: CG-5%A ascend/descend incline gravel MAP bldg, cued small stepping, improved R quad/glut, continues quick LLE advancememt. She states she has to walk little slower during incline/decline [place] but feeling more confident less support required. 09/09/22: Walked on carpet ramp yesterday. Walks slow because she is thinking too much on mechanics of gait, so spouse has been helping her more. 09/16/22: progressing: pt able to ascend/descend uneven and inclined/declined gravel outside clinic, CGA/close SBA, cues for less LLE stride, good soft knee. 10/03/22: Pt felt after she could have walked some of the uneven surfaces over the weekend independently, but slowly. Pt was able to walk soft, gravel and tiles with spouse CGA>Odalys. STG Duration 09/19/22 (10/03/22: Improved, NOT MET GOAL.) Residential Goal (LTG) Pt will be able to step over 4 doorframe or other objects with use of SPC. 06/06/22: Pt able to step over 4 and 5 objects ( doorframe like) with use of SPC safely. LTG Duration 08/07/22 (06/06/22: MET GOAL) Three Impairment Decreased ability to walk up/ down inclines Impairment Requires arm hold assist when walking on an incline for safety. Short Term Goal (STG) Able to walk up/down a hill with CGA>SBA for safety. 05/08/22: Walking small incline on [place]. 05/22/22: Walking on [place] gentle hills (inclines/ declines) 4x. She can walk by self now. Spouse helps 1x each way, used to be all the time. Able to do inclines/ declines when weather is good and no wet leaves around. 07/28/22: [place] hold hand for stability decline but ok to do. Tx able ascend/descend uneven double mats/wedges CG/ MinAx1 w/SPC 08/26/22: progressing: CG-5%A through gait belt ascend/ descend incline gravel MAP bldg, cued small stepping, improved R quad/glut, continues quick LLE advancememt. She states she has to walk little slower during incline/decline [place] but feeling more confident less 's arm support required. 09/16/22: pt reports has to stop when persons passing, feeling nervous. 10/03/22: Able to walk on [employer] [address] hill independently but slowly. STG Duration 11/07/22 (10/03/22: MET GOAL ) Residential Goal (LTG) Pt will be able to walk on [place] with SBA and an adaptive device for the RLE ( AFO) as needed. 05/08/22: Pt walking with spouse on [place] with SBA and ankle support. 05/22/22: Pt walking w/spoulse [place] with SBA> independent/cane/ankle support ). 09/09/22: Visual distraction with gait is worse, so spouse holds her when walking if someone is going to pass by; otherwise he doen't hold onto her. She is walking 1 mile vs 1.t miles due to taking smaller steps lengths. LTG Duration 08/07/22 (: MET GOAL). Two Impairment Decreased R LE strength Impairment Hyperextension of R knee with gait. R knee strength: Flex is 2/5, Ext is 4/5 and lacking ECC control with end-range extension. R ankle strength: Generally 1 /5 except ankle DF is 0/5. Short Term Goal (STG) Improve R knee and ankle strength 1/2 grade. 05/22/22: R knee flex 3-/5, Ext 4+/5. STG Duration 04/29/22 (05/22/22: MET GOAL ) Micro[employer] Processor Goal (LTG) Pt will demonstrate improved stability with gait with ability to limit R knee hyperextension during gait. 06/10/22: Pt needs phys & v cuing to prevent hyper ext of R knee during gait. 07/07/22: improved trunk alignment and decrease hip hike, better hip/ knee flexion RLE during gait post step con /ecc step ups 07/28/22: improved R knee soft knee flex midstance for LLE advancement w/use SPC in LLE. 08/05/22: Pt perceives stability with gait when keeping R knee slightly flexed on stance phase. LTG Duration 08/07/22 (08/05/22: MET GOAL) One Impairment Lacks appropriate self care HEP. Impairment Gait speed: 1.33 ft/sec ( measured over 20' walking span ) Short Term Goal (STG) Pt will be independent and consistent with a self care HEP. 04/03/22: Mini squats & sit<> stand. 04/24/22: Asst'd ankle DF and IV; standing heel raises. 05/22/22: HEP: R knee strengthening ex for sitting flex/ext. 06/10/22: I/S pt in del knee flex and sitting hip flex/AD w/ankle EV strengthening 08/05/22: Pt appears to always have a good understanding of home ex's and is able to recall ex's issued. STG Duration 04/29/22 (08/05/22: MET GOAL) Residential Goal (LTG) Improve gait speed. 05/08/22: Gt speed with cane, ankle support/GB/SBA, 20ft/14 secs = 1.42 ft/sec. 05/22/22: Gt speed w/cane/ ankle support/SBA is 20'/12 secs = 1.67 ft/sec. 07/22/22: Gt speed w/cane/ ankle support/SBA/pt concentrating on gt mechanics is 20'/20 secs = 1.0 ft/sec. 08/26/22: gait speed: 538 ft in 6 min= 1.49ft/sec using SPC in LUE LTG Duration 11/07/22 (09/09/22: MET GOAL ) Assessment Summary Assessment Mrs. Morfin has attended therapy for 26 visits since 03/18/22 with several times, for various reasons, having an extended break between treatments. The pt has made slow but continous progress in areas of balance, gait and ability to ambulate [place] uneven surfaces more safely. She is walking on almost a daily basis, when weather permits, with her spouse who provides SBA>CGA. The pt has improved her function although impairment score is the same per ABC scale. Her ABC score improved from 64 to 75 ( impairment is 20<40%, score 61 -80). The pt met many of her goals. She requires Odalys>CGA for gait on soft, gravel and tiles surfaces. The pt appears to have slowed down in her progress; therefore it was recommended to the pt that she continue with her independent HEP and if there are concerns in the future for her safety with balance and gait, she should certainly seek referral for balance, gait, LE strengthening and ROM rehabilitation. The pt will be discharged to her HEP today . Physical Therapy Plan Discharge Physical Therapy Discharge Reasons Plateau in Progress Discharge Comments Pt has been very committed to rehabilitation and has done well with improving her ability to ambulate on different surfaces, but is plateuing in her progress; therefore she is now ready to work on her strengthening, gait and balance on a self care HEP. The pt shows decreased stability of the R knee during gait and weakness appropriate for L CVA; therefore the pt would be appropriate for therapy in the future if decline in ability occurs. Thank you for your referral.
--- NOTE | 2022-10-04 14:29 | PT.OPDS ---
Current Diagnoses Hyperlipidemia, unspecified (10/03/22) Essential (primary) hypertension (10/03/22) Muscle weakness (generalized) (10/03/22) Other specified disorders of muscle (10/03/22) Unsteadiness on feet (10/03/22) Other abnormalities of gait and mobility (10/03/22) Visit Care Team Role Provider Type Jose Mcginnis MD Attending Provider Physician Family Provider Primary Care Provider Referring Provider Specialty: Internal Medicine Pediatrics Address: [address] [place] [address], [id number] Phone: Fax: Email: Visit Number Visit Number 26 total, Discharge Summary PT-OP-B Current Condition Start: 03/18/22 12:11 Freq: Status: Active Protocol: Document 03/18/22 13:51 LRN (Rec: 03/18/22 14:42 LRN [id number]) Current Condition History of Current Condition Onset Date A few weeks ago referred for stroke rehab at pt request. L CVA 07/22/18 Current Complaints Hasn't had therapy in a yr. 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 States since stroke she has had therapy for a few months each year. Referred by Dr Jose Mcginnis at [facility], who will no longer be following her because he was a fill in physician. Has follow up visit with a physician in June 2022, who will be her primary care physician. Pt reports her walking is still unsteady and her R hand is useless. Pt will be receiving PT & OT. States hamstrings are begining to improve, feeling in her feet is improving, and the inner R ankle ms are getting stronger, so she is not rolling her R ankle any more. Pt complains she doesn't have big toes to help her balance because they curl in. If she steps on something unevenly then it causes her to loose her balance. When walking she looks down at the ground, and if she hears someone behind her, it causes her to tense up and decreases her balance ability because it is very distracting to her. Her balance when statioinary is good, but dynamically is not good. Prior Treatments and Tests See development section below. Developmental History Developmental History She continues to make progress and feels therapy seems to help. Stoke in 07/22/2018 in [place]. Was in intensive care a few days, hospital a week and rehab inpt for 1 month. Home health the following month and outpatient OT/PT from September-Feb 2019. Started therapy again 06/2019 to 10/2019. Fall 08/03/19 with concusion. In 2020 had outpt PT 07/12 to 11/09. Treatment Goals Patient/Caregiver Goals Pt goals: Able to walk up/down hill. Currently she needs to hand onto someone if she is on a incline. Wants to walk on [place] without help. Wants to walk on different surfaces safely (grass, soft sand or gravel, cobblestones). Improve gait stability and speed. Able to step over 4 doorframe or other objects. Prior Functional Status Baseline Function- ADL's Independent Baseline Function- Mobility Independent Baseline Function- Work/School Homemaker. Current Functional Impairments (Reported) Functional Limitations- ADL's Past 2 months walks 1.25 miles 6 days/week. Other exercise is housework. Before walking on trails was doing modified yoga and Pilates exercise daily. Functional Limitations- Mobility/Gait Ambs with SPC, 1.25 miles with cane with spouse assist with inclines and declines. Personal Factors Other Personal Factors That May Effect Pt lives with spouse and son Therapy/Recovery who is a high functioning adult with autism, osteoporosis, intracranial meningioma. PT-OP-C Subjective Start: 03/18/22 12:11 Freq: Status: Active Protocol: Document 10/03/22 09:53 LRN (Rec: 10/03/22 10:39 LRN [id number]) OP-PT Subjective Patient Comments Patient Comments States she returned from a trip. Found it hard to encorporate training into gait on trip, but felt on the trip she was able to deal with different walking surfaces and now feels she is more ready to encorporate the training into her gait. Patient Questionnaires ABC- Activity Specific Balance Confidence Scale ABC Score 75 ABC Functional Impairment 20 to <40% Impaired (Score 61- 80) PT-OP-D Balance Start: 03/18/22 12:11 Freq: Status: Active Protocol: Document 06/06/22 14:37 LRN (Rec: 06/06/22 17:14 LRN [id number]) Rutherford Balance Assessment Evaluation Sitting to Standing Ability Independent w/out Hands Unsupported Stance Safely- 2 minutes Sitting Unsupported, Feet on Floor Safely- 2 minutes Standing to Sitting Ability Safely, Minimal Hand Use Transfer Ability Safely, Minimal Hand Use Unsupported Stance- Eyes Closed Safely, 10 seconds Unsupported Stance- Eyes Open Independent, 1 minute Reaching Forward Standing Confidently, 10 inches Pick- Up Object From Floor Independent/Safe Look Behind Shoulder - Standing Shifts Weight Well Turning 360 Degrees Turns slowly, but safely Unsupported Stance, Alternating Feet on (I)- 8 Steps in 20 secs Stair Unsupported Tandem Stance Balance Lost- Step/Stand Unilateral Leg Stance Unable,assist to not fall Total Score Rutherford Total Score (out of 56 points) 46 Rutherford Impairment Rating 1 to 19% Impaired (Score 45-55 ) PT-OP-E Functional Tests Start: 03/18/22 12:11 Freq: Status: Active Protocol: Document 07/17/22 13:03 LRN (Rec: 07/17/22 13:48 LR [id number]) Functional Tests 6 Minute Walk Test Distance 313 ft Device Used L SPC Comments Tennis shoes, cuing to not lock R knee into extension PT-OP-G Mobility & Gait Start: 03/18/22 12:11 Freq: Status: Active Protocol: Document 03/18/22 13:51 LRN (Rec: 03/18/22 14:42 LRN [id number]) OP Mobility Evaluation Transfers Sit to Stand Stand to sit sometime uncontrolled. Stands greater on LLE. OP Gait Assessment Gait Gait Assistance Required: Standby Assistance Able to Maintain Weight Bearing Status Yes During Gait Assistive Devices Assistive Device Gait Belt,Straight Cane Orthotic/Prosthetic Devices or Brace: No Gait Deviations General Gait Pattern Decreased Stride Length,Flexed Trunk,Lateral Trunk Lean,Wide Based Gait Factors Limiting Gait Function Factors Limiting Gait Function Abnormal Tonal Influences, Decreased Strength,Limited Range of Motion,Poor Balance Comments Gait Comments Circumducts R LE, R drop foot, holds trunk in R rot, R arm held in flexion contracture. PT-OP-H Neuro Start: 03/18/22 12:11 Freq: Status: Active Protocol: Document 03/18/22 13:51 LRN (Rec: 03/18/22 14:42 LRN [id number]) Sensation Evaluation Gross Sensation Gross Sensation WNL PT-OP-J Posture/Palpation/Skin Start: 03/18/22 12:11 Freq: Status: Active Protocol: Document 03/18/22 13:51 LRN (Rec: 03/18/22 14:42 LRN [id number]) Posture Evaluation Position Standing Head/C-Spine Posture Forward Head T-Spine Posture Rotation Right Shoulder Posture (L) Elevated Knee Posture (R) Genu Recurvatum Comments Posture Comments R handed. PT-OP-M Strength Start: 03/18/22 12:11 Freq: Status: Active Protocol: Document 05/30/22 14:31 LRN (Rec: 05/30/22 15:19 LRN [id number]) Ankle/Foot Strength Ankle and Foot Manual Muscle Testing Right Dorsiflexion (L4) 0 Zero Plantarflexion (S1) 2- Poor- Inversion 1 Trace Eversion (S1) 1 Trace Left Comments Generally 5/5 PT-OP-T Assessment and Plan Start: 03/18/22 12:11 Freq: Status: Active Protocol: Document 10/03/22 09:53 LRN (Rec: 10/03/22 10:39 LRN [id number]) Physical Therapy Assessment Goals Four Impairment Decreased standing dynamic balance. Impairment Pt requires railing UE support to step over objects. Short Term Goal (STG) Pt will be able to walk on different surfaces safely ( grass, soft sand or gravel to mimic cobblestones) with CGA> SBA. 03/21/22: RUTHERFORD Balance Score is 44 (>35 is safe amb w/ assistive device, >45 is safe w/o assist device) 05/08/22: Walked on hard sand with spouse giving CGA. 05/22/22: Pt needs guarding and assist every ~10 steps, used to be every step. Walked on trampled grass by self for 10' and grass/gravel w/spouse giving CGA with 1-2x Odalys. 06/06/22: RUTHERFORD Balance Score is 46, safe amb w/o assist device. Pt demonstrating gait consistent with L CVA ( weakness and tone on RLE). : went to august walking on brick use cane cane in LUE and husbands arm on R. [place] inclines self w/ SPC LUE still assist approx 5%A. 3/7/23: progressing: CG-5%A ascend/descend incline gravel MAP bldg, cued small stepping, improved R quad/glut, continues quick LLE advancememt. She states she has to walk little slower during incline/decline [place] but feeling more confident less support required. 09/09/22: Walked on carpet ramp yesterday. Walks slow because she is thinking too much on mechanics of gait, so spouse has been helping her more. 09/16/22: progressing: pt able to ascend/descend uneven and inclined/declined gravel outside clinic, CGA/close SBA, cues for less LLE stride, good soft knee. 10/03/22: Pt felt after she could have walked some of the uneven surfaces over the weekend independently, but slowly. Pt was able to walk soft, gravel and tiles with spouse CGA>Odalys. STG Duration 09/19/22 (10/03/22: Improved, NOT MET GOAL.) Intermediate Goal (LTG) Pt will be able to step over 4 doorframe or other objects with use of SPC. 06/06/22: Pt able to step over 4 and 5 objects ( doorframe like) with use of SPC safely. LTG Duration 08/07/22 (06/06/22: MET GOAL) Three Impairment Decreased ability to walk up/ down inclines Impairment Requires arm hold assist when walking on an incline for safety. Short Term Goal (STG) Able to walk up/down a hill with CGA>SBA for safety. 05/08/22: Walking small incline on [place]. 05/22/22: Walking on [place] gentle hills (inclines/ declines) 4x. She can walk by self now. Spouse helps 1x each way, used to be all the time. Able to do inclines/ declines when weather is good and no wet leaves around. 07/28/22: [place] hold hand for stability decline but ok to do. Tx able ascend/descend uneven double mats/wedges CG/ MinAx1 w/SPC 08/26/22: progressing: CG-5%A through gait belt ascend/ descend incline gravel MAP bldg, cued small stepping, improved R quad/glut, continues quick LLE advancememt. She states she has to walk little slower during incline/decline [place] but feeling more confident less 's arm support required. 09/16/22: pt reports has to stop when persons passing, feeling nervous. 10/03/22: Able to walk on [place] hill independently but slowly. STG Duration 11/07/22 (10/03/22: MET GOAL ) Intermediate Goal (LTG) Pt will be able to walk on [place] with SBA and an adaptive device for the RLE ( AFO) as needed. 05/08/22: Pt walking with spouse on [place] with SBA and ankle support. 05/22/22: Pt walking w/spoulse [place] with SBA> independent/cane/ankle support ). 09/09/22: Visual distraction with gait is worse, so spouse holds her when walking if someone is going to pass by; otherwise he doen't hold onto her. She is walking 1 mile vs 1.t miles due to taking smaller steps lengths. LTG Duration 08/07/22 (: MET GOAL). Two Impairment Decreased R LE strength Impairment Hyperextension of R knee with gait. R knee strength: Flex is 2/5, Ext is 4/5 and lacking ECC control with end-range extension. R ankle strength: Generally 1 /5 except ankle DF is 0/5. Short Term Goal (STG) Improve R knee and ankle strength 1/2 grade. 05/22/22: R knee flex 3-/5, Ext 4+/5. STG Duration 04/29/22 (05/22/22: MET GOAL ) Treasury Director Goal (LTG) Pt will demonstrate improved stability with gait with ability to limit R knee hyperextension during gait. 06/10/22: Pt needs phys & v cuing to prevent hyper ext of R knee during gait. 07/07/22: improved trunk alignment and decrease hip hike, better hip/ knee flexion RLE during gait post step con /ecc step ups 07/28/22: improved R knee soft knee flex midstance for LLE advancement w/use SPC in LLE. 08/05/22: Pt perceives stability with gait when keeping R knee slightly flexed on stance phase. LTG Duration 08/07/22 (08/05/22: MET GOAL) One Impairment Lacks appropriate self care HEP. Impairment Gait speed: 1.33 ft/sec ( measured over 20' walking span ) Short Term Goal (STG) Pt will be independent and consistent with a self care HEP. 04/03/22: Mini squats & sit<> stand. 04/24/22: Asst'd ankle DF and IV; standing heel raises. 05/22/22: HEP: R knee strengthening ex for sitting flex/ext. 06/10/22: I/S pt in del knee flex and sitting hip flex/AD w/ankle EV strengthening 08/05/22: Pt appears to always have a good understanding of home ex's and is able to recall ex's issued. STG Duration 04/29/22 (08/05/22: MET GOAL) Intermediate Goal (LTG) Improve gait speed. 05/08/22: Gt speed with cane, ankle support/GB/SBA, 20ft/14 secs = 1.42 ft/sec. 05/22/22: Gt speed w/cane/ ankle support/SBA is 20'/12 secs = 1.67 ft/sec. 07/22/22: Gt speed w/cane/ ankle support/SBA/pt concentrating on gt mechanics is 20'/20 secs = 1.0 ft/sec. 08/26/22: gait speed: 538 ft in 6 min= 1.49ft/sec using SPC in LUE LTG Duration 11/07/22 (09/09/22: MET GOAL ) Assessment Summary Assessment Mrs. Morfin has attended therapy for 26 visits since 03/18/22 with several times, for various reasons, having an extended break between treatments. The pt has made slow but continous progress in areas of balance, gait and ability to ambulate lamont uneven surfaces more safely. She is walking on almost a daily basis, when weather permits, with her spouse who provides SBA>CGA. The pt has improved her function although impairment score is the same per ABC scale. Her ABC score improved from 64 to 75 ( impairment is 20<40%, score 61 -80). The pt met many of her goals. She requires Odalys>CGA for gait on soft, gravel and tiles surfaces. The pt appears to have slowed down in her progress; therefore it was recommended to the pt that she continue with her independent HEP and if there are concerns in the future for her safety with balance and gait, she should certainly seek referral for balance, gait, LE strengthening and ROM rehabilitation. The pt will be discharged to her HEP today . Physical Therapy Plan Discharge Physical Therapy Discharge Reasons Plateau in Progress Discharge Comments Pt has been very committed to rehabilitation and has done well with improving her ability to ambulate on different surfaces, but is plateuing in her progress; therefore she is now ready to work on her strengthening, gait and balance on a self care HEP. The pt shows decreased stability of the R knee during gait and weakness appropriate for L CVA; therefore the pt would be appropriate for therapy in the future if decline in ability occurs. Thank you for your referral.
== END 2022-10-07 09:36 | disposition home or self-care (01) ==
LOC: PHYS 09:45
PROVIDERS: Family Provider Pediatrics; PCP Pediatrics; Referring Provider Pediatrics; Visit Provider Pediatrics
DX: E78.5 Hyperlipidemia, unspecified (principal); I10 Essential (primary) hypertension; M62.89 Other specified disorders of muscle; M62.81 Muscle weakness (generalized); R26.81 Unsteadiness on feet; R26.89 Other abnormalities of gait and mobility
CPT/HCPCS: 97110; 97112; 97116; 97140; 97162

== ENCOUNTER → 2023-09-09 10:13 | Outpatient (CLI) | payer MEDICARE, BC, SELFPAY ==
[2023-09-09 11:13] LABS: Hematocrit 37.4 % (36-46); Hemoglobin 12.6 g/dL (12.0-16.0); Mean Corpuscular HGB Conc 33.7 % (30-36); Mean Corpuscular Hemoglobin 28.1 PG (26-34); Mean Corpuscular Volume 83.4 fL (80-100); Platelet Count 248 X10^3/uL (150-400); Red Blood Cell Count 4.49 X10^6/uL (4.0-5.2); Red Cell Distribution Width 13.8 % (11.6-14.8); White Blood Cell Count 6.2 X10^3/uL (4.5-11.0)
[2023-09-09 11:33] LABS: Alanine Aminotransferase 23 IU/L (<35); Albumin 4.1 g/dL (3.5-5.0); Albumin Globulin Ratio 1.2 (1.0-2.8); Alkaline Phosphatase 53 U/L (38-126); Aspartate Aminotransferase 32 IU/L (14-36); BUN Creatinine Ratio 19.7 (6-22); Bilirubin Total 0.7 mg/dL (0.2-1.3); Blood Urea Nitrogen 12 mg/dL (7-17); Calcium 9.2 mg/dL (8.4-10.2); Carbon Dioxide 27 mmol/L (22-32); Chloride 107 mmol/L (98-107); Cholesterol 136 mg/dL (140-199); Estimated Glomerular Filt Rate > 60 mL/min (>60); Globulin 3.3 g/dL (1.7-4.1); Glucose 93 mg/dL (80-110); HDL Cholesterol 80 mg/dL (40-60); HEMOLYSIS < 15 (0-50); LDL Cholesterol Calculated 47 mg/dL (<100); Potassium 4.1 mmol/L (3.4-5.1); Sodium 140 mmol/L (137-145); Total Protein 7.4 g/dL (6.3-8.2); Triglycerides 44 mg/dL (35-150)
[2023-09-09 11:37] LABS: High Sensitivity CRP - Cardiac 0.4 mg/L (1.0-3.0)
[2023-09-11 08:10] LABS: Parathyroid Hormone Int 60 pg/mL (15-65)
== END ==
PROVIDERS: Family Provider Pediatrics; PCP Family Medicine; Referring Provider Family Medicine; Visit Provider Family Medicine
DX: E04.1 Nontoxic single thyroid nodule (principal); I10 Essential (primary) hypertension; E83.52 Hypercalcemia; E78.5 Hyperlipidemia, unspecified
CPT/HCPCS: 36415; 80053; 80061; 83970; 85027; 86140

== ENCOUNTER → 2023-12-10 14:29 | Outpatient (CLI) | payer MEDICARE, BC, SELFPAY ==
--- NOTE | 2023-12-10 14:31 | DI.MG.S_ITS ---
BILATERAL DIGITAL SCREENING MAMMOGRAM 3D/2D WITH CAD: 12/10/2023 CLINICAL: Routine screening. Comparison: 09/10/2021 Both breasts are heterogeneously dense, which may obscure small masses (category c / 51-75% glandular tissue). Current study was also evaluated with a Computer Aided Detection (CAD) system. No significant masses, calcifications, or other findings are seen in either breast. IMPRESSION: NEGATIVE There is no mammographic evidence of malignancy. A 1 year screening mammogram is recommended. Based on the Tyrer Cuzick model (a risk assessment model) the patient's lifetime risk is 8.2% and her 10 year risk is 5.2%. According to the ACR, ACS, and NCCN guidelines, an annual breast MRI exam along with mammogram is recommended if the patient's lifetime risk is 20% or greater. This exam was interpreted at Station ID: [id number]. NOTE: For mammograms, a report in lay terms will be sent to the patient. Approximately 15% of breast malignancies will not be visualized mammographically. In the management of a palpable breast mass, a negative mammogram must not discourage biopsy of a clinically suspicious lesion. Electronically Signed By: Xu Lazcano M.D. lc/:12/18/2023 07:46:21 letter sent: Normal Exam ACR BI-RADS Category 1: Negative [id number]
--- NOTE | 2023-12-10 14:31 | DI.RAD.S_ITS ---
PROCEDURE: XR DEXA AXIAL SKELETON INDICATIONS: SCREENING FOR OSTEOPOROSIS / ROUTINE SCREENING COMPARISON: None. FINDINGS: Lumbar Spine: Bone mineral density is 0.582 g/cm2, T score -4.2. Left Hip: Bone mineral density 0.598 g/cm2, T score -2.8. Left Femoral Neck: Bone mineral density 0.500 g/cm2, T score -3.1. Right Hip: Bone mineral density 0.451 g/cm2, T score -4.0. Right Femoral Neck: Bone mineral density 0.426 g/cm2, T score -3.8. Fracture Risk Calculation (when applicable): FRAX score not reported due to T-score less than -2.5. (T score greater or equal to -1.0 to: NORMAL) (T score from -1.1 to -2.4: OSTEOPENIA) (T score less than or equal to -2.5: OSTEOPOROSIS) IMPRESSION: By WHO criteria, patient has osteoporosis. Follow-up guidelines as follows: Osteoporosis: Consider a repeat DEXA and Vertebral Fracture Assessment (VFA) exam in 2 years or sooner if medically necessary, to reassess this patient's status. Osteopenia: Consider a repeat DEXA in 2-3 years to reassess this patient's status, or if there is a new clinical indication. Normal: Consider a repeat DEXA in 5 years or sooner, or if there is a new clinical indication. All treatment decisions require clinical judgment and consideration of individual patient factors, including patient preferences, comorbidities, previous drug use, risk factors not captured in the FRAX model (e.g., frailty, falls, vitamin D deficiency, increased bone turnover, interval significant decline in bone density ) and possible under- or over-estimation of fracture risk by FRAX. In addition, the NOF Guide recommends that FDA-approved medical therapies be considered in postmenopausal women and men age >= 50 years with a: * Hip or vertebral (clinical or morphometric) fracture * T-score of <=-2.5 at the spine or hip * Ten-year fracture probability by FRAX of >= 3% for hip fracture or >=20% for major osteoporotic fracture. People with diagnosed cases of osteoporosis or at high risk for fracture should have regular bone mineral density tests. For patients eligible for Medicare, routine testing is allowed once every 2 years. The testing frequency can be increased to one year for patients who have rapidly progressing disease, those who are receiving or discontinuing medical therapy to restore bone mass, or have additional risk factors. Approved by: Klever Tillman M.D. on 12/10/2023 at 21:29
== END ==
PROVIDERS: PCP Family Medicine; Referring Provider Family Medicine; Visit Provider Family Medicine
DX: Z12.31 Encounter for screening mammogram for malignant neoplasm of breast (principal); M81.0 Age-related osteoporosis without current pathological fracture; R92.333 Mammographic heterogeneous density, bilateral breasts
CPT/HCPCS: 77063; 77067; 77080

== ENCOUNTER → 2023-12-23 10:44 | Outpatient (CLI) | payer MEDICARE, BC, SELFPAY ==
[2023-12-23 11:19] LABS: Cholesterol 159 mg/dL (140-199); HDL Cholesterol 99 mg/dL (40-60); LDL Cholesterol Calculated 47 mg/dL (<100); Triglycerides 66 mg/dL (35-150)
[2023-12-23 11:24] LABS: High Sensitivity CRP - Cardiac 0.7 mg/L (1.0-3.0)
== END ==
LOC: LAB 10:45
PROVIDERS: PCP Family Medicine; Referring Provider Family Medicine; Visit Provider Family Medicine
DX: Z79.899 Other long term (current) drug therapy (principal)
CPT/HCPCS: 36415; 80061; 86140

== ENCOUNTER → 2024-01-14 10:28 | Outpatient (CLI) | payer MEDICARE, BC, SELFPAY ==
[2024-01-18 11:36] LABS: Fecal Immunochemical Test Negative (Negative)
== END ==
PROVIDERS: PCP Family Medicine; Referring Provider Family Medicine; Visit Provider Family Medicine
DX: Z12.11 Encounter for screening for malignant neoplasm of colon (principal)
CPT/HCPCS: 82274